=== PATIENT | female | born 1935 | race Caucasian/White ===

== ENCOUNTER 2024-07-26 10:23 | Inpatient (IN) | payer OTHER ==
[~2024-07-26] VITALS: Ht 167.6 cm; Wt 64.3 kg
[~2024-07-26 10:23] MED LIST: AMLO1TAB22 PO; ASPI-325 PO; CARV12.544 PO; CLOP75TA28 PO; LEVO100T8 PO; LOVA40TA72 PO; OSEL75CA5 PO; ROPI1TAB78 PO
[2024-07-26 10:50] VITALS: PULSE 82; RESP 17; O2SAT 95
--- NOTE | 2024-07-26 11:01 | ED.PDOC ---
History of Present Illness HPI Comments 89-year-old female BIBA prior medical history of CVA, high lipids, thyroid, hypertension; surgical history of partial colonoscopy and reversal" with so being diagnosed with pneumonia on 05/16/2020 in the chief complaint of shortness a breath. EMS report that the patient had a shortness a breath which has been worsening since last night and with the saturation of 90% room air and was given 4 L which brought the O2 up to 96%. Denies chills, fever, N/V/D, CP. No other associated symptoms, modifiers, recent injuries or sick contacts present at this time. Chief Complaint: Shortness of Breath Time Seen by MD: 10:35 Reviewed Notes: Nurses Notes, Medications, Allergies Allergies: Coded Allergies: NO KNOWN ALLERGIES (Unverified , 05/16/24) Home Meds Active Scripts Oseltamivir Phosphate (Tamiflu) 75 Mg Cap, 1 CAP PO BID, #10 CAP Prov:NICHOLAS BAILEY MD 05/19/24 Aspirin (Aspirin Low Dose) 81 Mg Tab, 81 MG PO DAILY, #60 TAB Prov:NICHOLAS BAILEY MD 05/19/24 Reported Medications Lovastatin (Lovastatin) 40 Mg Tab, 1 TAB PO DAILY, #30 TAB 5 Refills 05/17/24 Ropinirole Hydrochloride (Ropinirole Hcl) 1 Mg Tab, 1 MG PO, TAB 05/17/24 Carvedilol (Carvedilol) 12.5 Mg Tab, 12.5 MG PO Q12HR for 30 Days, MG 05/17/24 Amlodipine Besylate (Amlodipine Besylate) 5 Mg Tab, 10 MG PO DAILY for 30 Days, MG 05/17/24 Levothyroxine Sodium (Levothyroxine Sodium) 100 Mcg Tab, 100 MCG PO QAM for 30 Days, MCG 05/17/24 Clopidogrel Bisulfate (Plavix) 75 Mg Tab, 1 TAB PO DAILY, #90 TAB 1 Refill 05/17/24 Information Source: Patient, Emergency Med Personnel Mode of Arrival: EMS Severity: Moderate Timing: Hours Duration: Since onset, Hours Prehospital treatment: None Past Medical History PAST MEDICAL HISTORY: CVA, High Lipids, HTN, Thyroid Surgical History: Denies all surgeries Surgical History (Other): Partial colonoscopy and "reversal" colonoscopy STONER OUT History: Denies all STONER OUT Hx Family History Family History: Reviewed,noncontributory to illness, Unknown Social History Smoker: Non-Smoker Alcohol: Denies ETOH Use Drugs: Denies Drug Use Lives In: Home Constitutional: denies: chills, diaphoresis, fatigue, fever, malaise, sweats, weakness, others EENTM: denies: blurred vision, double vision, ear bleeding, ear discharge, ear drainage, ear pain, ear ringing, eye pain, eye redness, hearing loss, mouth pain, mouth swelling, nasal discharge, nose bleeding, nose congestion, nose pain, photophobia, tearing, throat pain, throat swelling, voice changes, others Respiratory: reports: shortness of breath; denies: cough, hemoptysis, orthopnea, SOB at rest, SOB with excertion, stridor, wheezing, others Cardiovascular: denies: chest pain, dizzy spells, diaphoresis, Dyspnea on exertion, edema, irregular heart beat, left arm pain, lightheadedness, palpitations, PND, syncope, others Gastrointestinal: denies: abdomen distended, abdominal pain, blood streaked bowels, constipated, diarrhea, dysphagia, difficulty swallowing, hematemesis, melena, nausea, poor appetite, poor fluid intake, rectal bleeding, rectal pain, vomiting, others Genitourinary: denies: abnormal vagina bleeding, burning, dyspareunia, dysuria, flank pain, frequency, hematuria, incontinence, pain, , vagina discharge, urgency, others Neurological: denies: dizziness, fainting, headache, left sided numbness, left sided weakness, numbness, paresthesia, pre-existing deficit, right sided numbness, right sided weakness, seizure, speech problems, tingling, tremors, weakness, others Musculoskeletal: denies: back pain, gout, joint pain, joint swelling, muscle pain, muscle stiffness, neck pain, others Integumetry: denies: bruises, change in color, change in hair/nails, dryness, laceration, lesions, lumps, rash, wounds, others Allergic/Immunocompromised: denies: Difficulty Healing, Frequent Infections, Hives, Itching, others Hematologic/Lymphatic: denies: anemia, blood clots, easy bleeding, easy bruising, swollen glands, others Endocrine: denies: excessive hunger, excessive sweating, excessive thirst, excessive urination, flushing, intolerance to cold, intolerance to heat, unexplained weight gain, unexplained weight loss, others Psychiatric: denies: anxiety, bipolar disorder, depression, hopeless, panic disorder, schizophrenia, sleepless, suicidal, others All Other Systems: Reviewed and Negative Physical Exam General Appearance: Moderate Distress, Normal HEENT: Normal ENT Inspection, Pharynx Normal, TMs Normal Neck: Full Range of Motion, Non-Tender, Normal, Normal Inspection Respiratory: Chest Non-Tender, No Accessory Muscle Use, No Respiratory Distress, Other (Coarse breath sounds) Cardiovascular: No Edema, No JVD, No Murmur, No Gallop, Normal Peripheral Pulses, Regular Rate/Rhythm Breast Exam: Deferred Gastrointestinal: No Organomegaly, Non Tender, No Pulsatile Mass, Normal Bowel Sounds, Soft Genitalia: Deferred Pelvic: Deferred Rectal: Deferred Extremities: No calf tenderness, Normal capillary refill, Normal inspection, Normal range of motion, Non-tender, No pedal edema Musculoskeletal : Apperance: Normal Neurologic: Alert, 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 Was a procedure done?: No Differential Dx Considerations may include: Acute respiratory distress Electrolyte imbalance X-Ray, Labs, Meds, VS Vital Signs Date Time Temp Pulse Resp B/P (MAP) Pulse Ox O2 Delivery O2 Flow Rate FiO2 07/26/24 10:50 98.2 82 17 177/68 (104) 95 98.2 07/26/24 10:50 82 17 95 Room Air* 0 21 07/26/24 10:43 20 95 Nasal Cannula* 4 36 07/26/24 10:38 98.0 74 20 165/73 (103) 95 98.0 Lab Test 07/26/24 11:58 07/26/24 10:56 Range/Units Troponin I High Sensitivity 97 *H 78 *H </=34 ng/L White Blood Count 5.4 4.4-10.8 10^3/uL Red Blood Count 5.06 4.0-5.20 10^6/uL Hemoglobin 10.8 L 12.2-16.2 g/dL Hematocrit 35.0 L 36.0-46.0 % Mean Corpuscular Volume 69.1 L 80.0-100.0 fL Mean Corpuscular Hemoglobin 21.4 L 28.0-32.0 pg Mean Corpuscular Hemoglobin Concent 30.9 L 32.0-36.0 g/dL Red Cell Distribution Width 19.5 H 11.8-14.3 % Platelet Count 248 140-450 10^3/uL Mean Platelet Volume 7.9 6.9-10.8 fL Neutrophils (%) (Auto) 75.7 37.0-80.0 % Lymphocytes (%) (Auto) 16.6 10.0-50.0 % Monocytes (%) (Auto) 6.9 0.0-12.0 % Eosinophils (%) (Auto) 0.3 0.0-7.0 % Basophils (%) (Auto) 0.5 0.0-2.0 % Neutrophils # (Auto) 4.1 1.6-8.6 10 ^3/uL Lymphocytes # (Auto) 0.9 0.4-5.4 10 ^3/uL Monocytes # (Auto) 0.4 0-1.3 10 ^3/uL Eosinophils # (Auto) 0 0-0.8 10 ^3/uL Basophils # (Auto) 0 0-0.2 10 ^3/uL Nucleated Red Blood Cells 0.1 % Sodium Level 142 136-145 mmol/L Potassium Level 4.1 3.5-5.1 mmol/L Chloride Level 109 H 98-107 mmol/L Carbon Dioxide Level 22 20-31 mmol/L Anion Gap 11 5-15 Blood Urea Nitrogen 20 9-23 mg/dL Creatinine 0.85 0.550-1.02 mg/dL Glomerular Filtration Rate Calc 65 >90 mL/min BUN/Creatinine Ratio 23.5 H 10.0-20.0 Serum Glucose 107 H 74-106 mg/dL Calcium Level 9.6 8.7-10.4 mg/dL Current Medications Medications (Trade) Dose Ordered Sig/Shanna Route Start Time Stop Time Status Last Admin Ceftriaxone Sodium 50 ml @ 100 mls/hr ONCE ONCE IV 07/26/24 11:00 07/26/24 11:33 DC 07/26/24 11:[address] [address] Ph: [phone] DIAGNOSTIC IMAGING Diagnostic Imaging Report : [id number] Signed PATIENT: ALYSIA GARCIA ACCT: [id number] UNIT: [id number] : 1935 LOC: ER ROOM / BED: / AGE / SEX: 89 / F ADM STATUS: REG ER SERVICE 1051 ORDERING PHYSICIAN: ANTIONETTE MAN MD PROCEDURE(s): CXRP - CHEST PORTABLE REASON: sob ORDER NUMBER(s): [id number], ACCESSION NUMBER(s): [id number] XY CHEST PORTABLE, HISTORY: sob COMPARISON: XY CHEST XRAY 1 VIEW on DOS: 05/16/24 XY CHEST XRAY 1 VIEW on DOS: 05/16/24 TECHNICAL DATA: 1 view of the chest was obtained. FINDINGS: Lines and tubes: None Cardiomediastinal silhouette: normal Pulmonary vasculature: normal Lung expansion: normal Lung airspace: normal Lung interstitium: normal Pleura: normal Pneumothorax: no Bones: Unremarkable Other: no IMPRESSION: No acute intrathoracic abnormality. ATED BY: ARTEM MEJIA MD DICTATED DATE/TIME: 07/26/24 1126 SIGNED BY: ARTEM MEJIA MD SIGNED DATE/TIME: 07/26/24 112 CC: Patient alert. Complaining of having shortness a breath. Placed on oxygen. Answering questions. Cardiac marker elevated. Continue oxygen. Was given aspirin. Was given Lovenox. Reviewed her previous visit. Explained to the patient her diagnosis. Continue monitoring. Time of 1ST Reevaluation: 11:05 Reevaluation 1ST: Unchanged Patient Education/Counseling: Diagnosis, Treatment, Prognosis Family Education/Counseling: No Family Present Departure 1 Departure Time of Disposition: 12:42 Impression: Primary Impression: Acute respiratory distress Additional Impression: Elevated troponin Disposition: ADMITTED INPATIENT Admit to: Med Surg Condition: Guarded Critical Care Note Critical Care Time?: No Stability Stability form required: No Heart Score Heart Score: Heart Score Response (Comments) Value History Slightly Suspicious 0 EKG Normal 0 Age >65 2 Risk Factors >3 or Hx ASHD 2 Troponin >3 x's Normal limit 2 Total 6 I personally scribed for ANTIONETTE MAN MD ([email or web address]) on 07/26/24 at 11:01. Electronically submitted by Gabriele Galvan ([email or web address]). I personally scribed for ANTIONETTE MAN MD ([email or web address]) on 07/26/24 at 11:51. Electronically submitted by Gabriele Galvan ([email or web address]). ANTIONETTE MAN MD July 26, 2024 11:01
[2024-07-26] MEDS: cefTRIAXone 1GM/50ML D5W 50 ML IV ONE (11:06)
[2024-07-26 11:08] LABS: Basophils # (auto) 0 10 ^3/uL (0-0.2); Basophils % (auto) 0.5 % (0.0-2.0); Eosinophils # (auto) 0 10 ^3/uL (0-0.8); Eosinophils % (auto) 0.3 % (0.0-7.0); Hemoglobin 10.8 g/dL (12.2-16.2); Lymphocytes # (auto) 0.9 10 ^3/uL (0.4-5.4); Lymphocytes % (auto) 16.6 % (10.0-50.0); Mean Corpuscular Hemoglobin 21.4 pg (28.0-32.0); Mean Corpuscular Hgb Conc. 30.9 g/dL (32.0-36.0); Mean Corpuscular Volume 69.1 fL (80.0-100.0); Monocytes # (auto) 0.4 10 ^3/uL (0-1.3); Monocytes % (auto) 6.9 % (0.0-12.0); Neutrophils # (auto) 4.1 10 ^3/uL (1.6-8.6); Neutrophils % (auto) 75.7 % (37.0-80.0); Nucleated Red Blood Cells % 0.1 %; Platelet Count (auto) 248 10^3/uL (140-450); Red Blood Cells 5.06 10^6/uL (4.0-5.20); Red Cell Distribution Width 19.5 % (11.8-14.3); White Blood Cell 5.4 10^3/uL (4.4-10.8)
[2024-07-26 11:22] LABS: Potassium 4.1 mmol/L (3.5-5.1); Sodium 142 mmol/L (136-145)
[2024-07-26 11:23] LABS: Anion Gap 11 (5-15); Calcium 9.6 mg/dL (8.7-10.4); Carbon Dioxide 22 mmol/L (20-31)
[2024-07-26 11:28] LABS: BUN/Creatinine Ratio 23.5 (10.0-20.0); Blood Urea Nitrogen 20 mg/dL (9-23); Chloride 109 mmol/L (98-107); Glucose 107 mg/dL (74-106)
--- NOTE | 2024-07-26 11:28 | DVH ---
XY CHEST PORTABLE, HISTORY: sob COMPARISON: XY CHEST XRAY 1 VIEW on DOS: 05/16/24 XY CHEST XRAY 1 VIEW on DOS: 05/16/24 TECHNICAL DATA: 1 view of the chest was obtained. FINDINGS: Lines and tubes: None Cardiomediastinal silhouette: normal Pulmonary vasculature: normal Lung expansion: normal Lung airspace: normal Lung interstitium: normal Pleura: normal Pneumothorax: no Bones: Unremarkable Other: no IMPRESSION: No acute intrathoracic abnormality.
[2024-07-26] MEDS: ENOXAPARIN SOD 60 MG/0.6 ML SYRINGE SC ONE (12:59)
--- NOTE | 2024-07-26 13:20 | ECG ---
[facility] Test Date: 2024-07-26 Test Time: 13:18:44 Pat Name: ALYSIA GARCIA Department: ED Room: 0233T Gender: F Manager Apple: TAHIR : 1935 Requested By: ANTIONETTE MAN Order Number: [id number] Reading MD: Valeriano Meade Measurements Intervals [place] Rate: 65 P: 23 OH: 215 QRS: -10 QRSD: 94 T: -57 QT: 512 QTc: 533 Interpretive Statements Sinus rhythm Borderline prolonged OH interval Abnormal R-wave progression, early transition Nonspecific T abnormalities, diffuse leads Prolonged QT interval Electronically Signed On 07-28-2024 12:08:18 PDT by Valeriano Meade Please click the below link to view image of tracing.
[2024-07-26 14:48] LABS: Urine Bacteria None Seen /hpf (None Seen)
[2024-07-26 15:01] LABS: Urine Blood Negative /uL (Negative); Urine Clarity Clear (Clear); Urine Color Light-Yellow (Yellow); Urine Mucus FEW (None Seen); Urine Protein, UAD Negative (Negative); Urine Specific Gravity 1.017 (1.001-1.035); Urine Squamous Epithelial Cell FEW /hpf (<5); Urine Urobilinogen Normal (Negative); Urine WBC 1 /HPF (0-5); Urine pH 5.5 (5.0-9.0)
[2024-07-26] MEDS ORDERED: MORPHINE SULFATE INJ 2 MG/ml SYRG IV PRN ×2 (17:00)
[2024-07-26] MEDS ORDERED: ACETAMINOPHEN 325 MG TAB PO PRN (17:00)
[2024-07-26] MEDS ORDERED: NITROGLYCERIN 0.4 MG SL TAB SL PRN (17:00)
[2024-07-26] MEDS ORDERED: ONDANSETRON HCL 4 MG/2 ML VIAL IV PRN (17:00)
[2024-07-26] MEDS ORDERED: HYDROcodone-ACET 5/325MG TAB PO PRN (17:00)
[2024-07-26 18:36] VITALS: BP 155/64; PULSE 67; RESP 17; TEMP 97.6; O2SAT 97
[2024-07-26 18:37] VITALS: BP 155/64; PULSE 67; RESP 17; TEMP 97.6; O2SAT 97
[2024-07-26 20:00] VITALS: PULSE 65
[2024-07-26 21:00] VITALS: BP 125/58; PULSE 65; RESP 17; TEMP 98.5; O2SAT 96
[2024-07-27] VITALS (8 sets, daily range): BP systolic 123–149; BP diastolic 50–72; PULSE 66–101; RESP 15–18; TEMP 97.6–98.9; O2SAT 97–98
--- NOTE | 2024-07-27 01:17 | DVHHP2 ---
KIARA LAIRD MARKETING REPRESENTATIVE 07/27/24 0117: History of Present Illness Reason for Visit: Shortness of breath History of Present Illness 89-year-old female medical history of hypertension, hypothyroidism presents who complains of shortness of breath x2 days. When EMS encounter the patient, the patient's oxygen saturation was 90% on room air. Patient does not use home oxygen. During the emergency department evaluation troponins Are positive trending up 78/97/104. At this time patient states breathing has improved. Denies fevers, chills, dizziness, palpitations, chest pain, nausea, vomiting Cardiovascular: HTN TRAUMA THERAPIST: CVA Smoke: No ALCOHOL: none Drugs: None Lives: with Family Review of Systems Constitutional: No: Fever, Chills, Sweats, Weakness, Malaise, Other Eyes: No: Pain, Vision change, Conjunctivae inflammation, Eyelid inflammation, Other, Redness ENT: No: Ear pain, Ear discharge, Nose pain, Nose discharge, Nose congestion, Mouth pain, Mouth swelling, Throat pain, Throat swelling, Other Respiratory: Shortness of breath; No: Cough, Dry, SOB with excertion, Wheezing, Hemoptysis, Pleuritic Pain, Sputum, Wheezing, Other Cardiovascular: No: Chest Pain, Palpitations, Orthopnea, Paroxysmal Noc. Dyspnea, Edema, Lt Headedness, Other Gastrointestinal: No: Nausea, Vomiting, Abdominal Pain, Diarrhea, Constipation, Melena, Hematochezia, Other Genitourinary: No Dysuria, No Frequency, No Incontinence, No Hematuria, No Retention, No Other Musculoskeletal: No: other, neck pain, shoulder pain, arm pain, back pain, hand pain, leg pain, foot pain Skin: No: Rash, Lesions, Jaundice, Bruising, Other Neurological: No: Weakness, Numbness, Incoordination, Change in speech, Confusion, Seizures, Other Allergies: Coded Allergies: NO KNOWN ALLERGIES (Unverified , 05/16/24) Medications Current Medications Medications Dose Ordered Sig/Shanna Route Start Time Stop Time Status Last Admin Dose Admin Acetaminophen/ Hydrocodone Bitart 1 tab Q4HP PRN PO 07/26/24 17:00 Ondansetron HCl 4 mg Q4HP PRN IV 07/26/24 17:00 Enoxaparin Sodium 40 mg DAILY SC 07/27/24 10:00 Acetaminophen 650 mg Q6HP PRN PO 07/26/24 17:00 Morphine Sulfate 2 mg Q4HPRN PRN IV 07/26/24 17:00 Nitroglycerin 0.4 mg Q5MINP PRN SL 07/26/24 17:00 Morphine Sulfate 2 mg Q30M PRN IV 07/26/24 17:00 Exam Vital Signs Vital Signs Date Time Temp Pulse Resp B/P (MAP) Pulse Ox O2 Delivery O2 Flow Rate FiO2 07/26/24 21:00 98.5 65 17 125/58 (80) 96 98.5 07/26/24 20:00 Nasal Cannula* 2 28 General Appearance: Alert, Oriented X3, Cooperative, mild distress HEENT: Atraumatic, PERRLA, EOMI Respiratory: Clear to auscultation, Normal air movement Cardiovascular: Regular rate, Normal S1, Normal S2 Abdominal: Normal bowel sounds, Soft Extremities: No clubbing, No cyanosis, No edema Skin: No rashes, No breakdown Neuro: Normal speech Psych/Mental Status: Mental status NL, Mood NL Labs/Xrays Labs Test 07/26/24 14:46 07/26/24 14:01 07/26/24 10:56 Range/Units Urine Color Light-yellow Yellow Urine Clarity Clear Clear Urine pH 5.5 5.0-9.0 Urine Specific [place] 1.017 1.001-1.035 Urine Protein Negative Negative Urine Ketones Negative Negative Urine Blood Negative Negative /uL Urine Nitrite Negative Negative Urine Bilirubin Negative Negative Urine Urobilinogen Normal Negative mg/dL Urine Leukocyte Esterase Negative Negative /uL Urine RBC 2 0 - 4 /hpf Urine Microscopic WBC 1 0-5 /HPF Urine Squamous Epithelial Cells Few <5 /hpf Urine Bacteria None seen None Seen /hpf Urine Mucus Few None Seen Urine Glucose Normal Normal mg/dL Troponin I High Sensitivity 104 *H </=34 ng/L White Blood Count 5.4 4.4-10.8 10^3/uL Red Blood Count 5.06 4.0-5.20 10^6/uL Hemoglobin 10.8 L 12.2-16.2 g/dL Hematocrit 35.0 L 36.0-46.0 % Mean Corpuscular Volume 69.1 L 80.0-100.0 fL Mean Corpuscular Hemoglobin 21.4 L 28.0-32.0 pg Mean Corpuscular Hemoglobin Concent 30.9 L 32.0-36.0 g/dL Red Cell Distribution Width 19.5 H 11.8-14.3 % Platelet Count 248 140-450 10^3/uL Mean Platelet Volume 7.9 6.9-10.8 fL Neutrophils (%) (Auto) 75.7 37.0-80.0 % Lymphocytes (%) (Auto) 16.6 10.0-50.0 % Monocytes (%) (Auto) 6.9 0.0-12.0 % Eosinophils (%) (Auto) 0.3 0.0-7.0 % Basophils (%) (Auto) 0.5 0.0-2.0 % Neutrophils # (Auto) 4.1 1.6-8.6 10 ^3/uL Lymphocytes # (Auto) 0.9 0.4-5.4 10 ^3/uL Monocytes # (Auto) 0.4 0-1.3 10 ^3/uL Eosinophils # (Auto) 0 0-0.8 10 ^3/uL Basophils # (Auto) 0 0-0.2 10 ^3/uL Nucleated Red Blood Cells 0.1 % Sodium Level 142 136-145 mmol/L Potassium Level 4.1 3.5-5.1 mmol/L Chloride Level 109 H 98-107 mmol/L Carbon Dioxide Level 22 20-31 mmol/L Anion Gap 11 5-15 Blood Urea Nitrogen 20 9-23 mg/dL Creatinine 0.85 0.550-1.02 mg/dL Glomerular Filtration Rate Calc 65 >90 mL/min BUN/Creatinine Ratio 23.5 H 10.0-20.0 Serum Glucose 107 H 74-106 mg/dL Calcium Level 9.6 8.7-10.4 mg/dL Assessment/Plan Assessment/Plan Elevated troponin Shortness of breath Plan Admit telemetry Cardiology consult. Echocardiogram. As needed hypertensive for optimal BP management. Serial troponin. Bronchodilators. As needed supplemental oxygen to maintain oxygen saturation greater than 93%. GI ppx pepcid / dvt ppx lovenox. Plan discussed with: Patient Date of Service: July 27, 2024 Billing Provider: NICHOLAS BAILEY MD Common Visit Codes: NOT BILLABLE NICHOLAS BAILEY MD 07/27/24 1713: Review of Systems Allergies: Coded Allergies: NO KNOWN ALLERGIES (Unverified , 05/16/24) Additional Comments Additional Comments Additional Comments 89-year-old female with known history of hypertension, previous history of CVA currently on Plavix, dyslipidemia, hypothyroidism initially presented to the hospital with increasing shortness of breath on exertion found to have 1. Elevated troponin suspect NSTEMI 2. Exertional shortness of breath rule out atherosclerotic coronary artery disease 3. Hypertension 4. Dyslipidemia 5. Hypothyroidism -trend troponins, cardiology consultation, possible nuclear stress test -physical therapy evaluation treatment -we will assess home oxygen requirement upon discharge. KIARA LAIRD NP July 27, 2024 01:17 NICHOLAS BAILEY MD July 27, 2024 17:13
[2024-07-27] MEDS: ENOXAPARIN SOD 40 MG/0.4 ML SYRINGE SC SCH (08:56)
[2024-07-27 10:20] LABS: Basophils # (auto) 0 10 ^3/uL (0-0.2); Eosinophils # (auto) 0 10 ^3/uL (0-0.8); Lymphocytes # (auto) 0.8 10 ^3/uL (0.4-5.4); Mean Corpuscular Volume 68.9 fL (80.0-100.0); Monocytes # (auto) 0.4 10 ^3/uL (0-1.3); Nucleated Red Blood Cells % 0.1 %; White Blood Cell 3.9 10^3/uL (4.4-10.8)
[2024-07-27 10:22] LABS: Basophils % (auto) 0.6 % (0.0-2.0); Hematocrit 32.9 % (36.0-46.0); Lymphocytes % (auto) 19.7 % (10.0-50.0); Mean Corpuscular Hemoglobin 20.9 pg (28.0-32.0); Mean Corpuscular Hgb Conc. 30.4 g/dL (32.0-36.0); Monocytes % (auto) 9.7 % (0.0-12.0); Neutrophils # (auto) 2.7 10 ^3/uL (1.6-8.6); Platelet Count (auto) 224 10^3/uL (140-450); Red Blood Cells 4.78 10^6/uL (4.0-5.20); Red Cell Distribution Width 19.5 % (11.8-14.3)
[2024-07-27 10:59] LABS: Alanine Aminotransferase 14 U/L (7-40); Albumin 3.8 g/dL (3.2-4.8); Alkaline Phosphatase 51 U/L (46-116); Anion Gap 10 (5-15); Aspartate Aminotransferase 26 U/L (13-40); BUN/Creatinine Ratio 25.3 (10.0-20.0); Blood Urea Nitrogen 20 mg/dL (9-23); Calcium 9.1 mg/dL (8.7-10.4); Carbon Dioxide 22 mmol/L (20-31); Potassium 4.4 mmol/L (3.5-5.1); Sodium 140 mmol/L (136-145); Total Protein 5.7 g/dL (5.7-8.2)
[2024-07-27 11:24] LABS: Bilirubin, Total 0.3 mg/dL (0.2-1.0); Chloride 108 mmol/L (98-107); Glucose 122 mg/dL (74-106)
--- NOTE | 2024-07-27 16:02 | DVHINCON2 ---
Date Seen: July 27, 2024 Referring Physician MD Jolly Reason for Consultation Mildly elevated troponin History of Present Illness This is a pleasant 89-year-old female who presented to the emergency room with a chief complaint of shortness of breath two days ago. The patient reports she a woke in the middle of the night gasping for air which prompted her to call 911. Upon EMS arrival she was found with an oxygen saturation level of 90% on room air for which she was administered a breathing treatment with relief of symptoms. The patient endorses exertional SOB when ambulating to the bathroom. Exertional angina, chest pain, palpitations, diaphoresis, dizziness, or syncopal events. She underwent a 12 lead electrocardiogram revealing a sinus rhythm with an associated first-degree atrioventricular block and T-wave inversion to anterior and inferior leads. These T-wave changes are new compared from those from a previous admission in May/2024. Troponin levels peaked at 104 ng/L. Significant medical history includes hypertension, dyslipidemia, hypothyroidism, and history of CVA. Past Medical History Past medical history reviewed. No other significant than mentioned above. Past Surgical History Colostomy reversal, 2022 Bilateral eyes Family History: Patient reports no known family medical history. Family History Family history reviewed. Social History Denies the use of illicit drugs, alcohol, or tobacco use. Allergies: Coded Allergies: NO KNOWN ALLERGIES (Unverified , 05/16/24) Home Meds Active Scripts Oseltamivir Phosphate (Tamiflu) 75 Mg Cap, 1 CAP PO BID, #10 CAP Prov:NICHOLAS BAILEY MD 05/19/24 Aspirin (Aspirin Low Dose) 81 Mg Tab, 81 MG PO DAILY, #60 TAB Prov:NICHOLAS BAILEY MD 05/19/24 Reported Medications Lovastatin (Lovastatin) 40 Mg Tab, 1 TAB PO DAILY, #30 TAB 5 Refills 05/17/24 Ropinirole Hydrochloride (Ropinirole Hcl) 1 Mg Tab, 1 MG PO, TAB 05/17/24 Carvedilol (Carvedilol) 12.5 Mg Tab, 12.5 MG PO Q12HR for 30 Days, MG 05/17/24 Amlodipine Besylate (Amlodipine Besylate) 5 Mg Tab, 10 MG PO DAILY for 30 Days, MG 05/17/24 Levothyroxine Sodium (Levothyroxine Sodium) 100 Mcg Tab, 100 MCG PO QAM for 30 Days, MCG 05/17/24 Clopidogrel Bisulfate (Plavix) 75 Mg Tab, 1 TAB PO DAILY, #90 TAB 1 Refill 05/17/24 Home Meds Home medications reviewed. Current Medications Current Medications Medications (Trade) Dose Ordered Sig/Shanna Route PRN Reason Start Time Stop Time Status Last Admin Acetaminophen/ Hydrocodone Bitart ([place] 5/325MG Tab) 1 tab Q4HP PRN PO MODERATE PAIN (4-6 PAIN SCALE) 07/26/24 17:00 Ondansetron HCl (Zofran) 4 mg Q4HP PRN IV NAUSEA / VOMITING 07/26/24 17:00 Enoxaparin Sodium (Lovenox) 40 mg DAILY SC 07/27/24 10:00 07/27/24 08:56 Acetaminophen (Tylenol Tablet) 650 mg Q6HP PRN PO PAIN SCALE 1-3 OR TEMP>100.4 07/26/24 17:00 Morphine Sulfate 2 mg Q4HPRN PRN IV SEVERE PAIN (7-10 PAIN SCALE) 07/26/24 17:00 Nitroglycerin (Ntrostat Sublingual) 0.4 mg Q5MINP PRN SL FOR CHEST PAIN 07/26/24 17:00 Morphine Sulfate 2 mg Q30M PRN IV FOR CHEST PAIN 07/26/24 17:00 Levothyroxine Sodium (Synthroid Tablet) 100 mcg QAM PO 07/28/24 07:00 UNV Review of Systems Constitutional: No symptom reported Ears, Nose, & Throat: No symptom reported Eyes: No symptom reported Neurological: No symptoms reported Pulmonary/Respiratory: SOB Cardiovascular: No symptom reported Gastrointestinal: No symptom reported Genitourinary: No symptom reported Musculoskeletal: No symptom reported Skin: No symptom reported Psychiatric: No symptom reported Endocrine: No symptom reported Hemotologic/Lymphatic: No symptom reported Vital Signs Vital Signs Date Time Temp Pulse Resp B/P (MAP) Pulse Ox O2 Delivery O2 Flow Rate FiO2 07/27/24 12:21 98.8 69 15 135/64 (87) 98 98.8 07/27/24 07:45 Nasal Cannula* 2 28 Physical Exam General Appearance: Cooperative. Well developed. Well nourished. In no acute distress Head Exam: Normal inspection Neck Exam: Normal inspection. Non-tender. Normal alignment Pulmonary/Respiratory: Chest non-tender. Diminished bilateral breath sounds Cardiovascular/Chest: Regular rate and rhythm. S1, S2. Sinus rhythm with T- wave inversion to inferior and anterior leads. No murmurs. No JVD. Peripheral Pulses: 2+ Radial (R). 2+ Radial (L). 2+ Pedal (R). 2+ Pedal (L) Abdominal Exam: Normal bowel sounds. Soft. Nontender. No hepatospenomegaly. No masses Ankle Exam: Negative ankle edema Lower extremities: Negative lower extremity edema Neuro/Mental Status: A&O x4. Coherent Thoughts/Psych: Normal thought pattern. Appropriate mood and affect. Pleasant Appearance: In no acute distress Skin Exam: Normal inspection. Normal color. Warm. Dry Labs/Diagnostic Data Labs Test 07/27/24 09:57 07/26/24 14:46 Range/Units White Blood Count 3.9 #L 4.4-10.8 10^3/uL Red Blood Count 4.78 4.0-5.20 10^6/uL Hemoglobin 10.0 L 12.2-16.2 g/dL Hematocrit 32.9 L 36.0-46.0 % Mean Corpuscular Volume 68.9 L 80.0-100.0 fL Mean Corpuscular Hemoglobin 20.9 L 28.0-32.0 pg Mean Corpuscular Hemoglobin Concent 30.4 L 32.0-36.0 g/dL Red Cell Distribution Width 19.5 H 11.8-14.3 % Platelet Count 224 140-450 10^3/uL Mean Platelet Volume 8.3 6.9-10.8 fL Neutrophils (%) (Auto) 69.0 37.0-80.0 % Lymphocytes (%) (Auto) 19.7 10.0-50.0 % Monocytes (%) (Auto) 9.7 0.0-12.0 % Eosinophils (%) (Auto) 1.0 0.0-7.0 % Basophils (%) (Auto) 0.6 0.0-2.0 % Neutrophils # (Auto) 2.7 1.6-8.6 10 ^3/uL Lymphocytes # (Auto) 0.8 0.4-5.4 10 ^3/uL Monocytes # (Auto) 0.4 0-1.3 10 ^3/uL Eosinophils # (Auto) 0 0-0.8 10 ^3/uL Basophils # (Auto) 0 0-0.2 10 ^3/uL Nucleated Red Blood Cells 0.1 % Sodium Level 140 136-145 mmol/L Potassium Level 4.4 3.5-5.1 mmol/L Chloride Level 108 H 98-107 mmol/L Carbon Dioxide Level 22 20-31 mmol/L Anion Gap 10 5-15 Blood Urea Nitrogen 20 9-23 mg/dL Creatinine 0.79 0.550-1.02 mg/dL Glomerular Filtration Rate Calc 71 >90 mL/min BUN/Creatinine Ratio 25.3 H 10.0-20.0 Serum Glucose 122 H 74-106 mg/dL Calcium Level 9.1 8.7-10.4 mg/dL Total Bilirubin 0.3 0.2-1.0 mg/dL Aspartate Amino Transferase (AST) 26 13-40 U/L Alanine Aminotransferase (ALT) 14 7-40 U/L Alkaline Phosphatase 51 46-116 U/L Troponin I High Sensitivity 41 *H </=34 ng/L B-Type Natriuretic Peptide 1115.94 0-100 pg/mL Total Protein 5.7 5.7-8.2 g/dL Albumin 3.8 3.2-4.8 g/dL Urine Color Light-yellow Yellow Urine Clarity Clear Clear Urine pH 5.5 5.0-9.0 Urine Specific [place] 1.017 1.001-1.035 Urine Protein Negative Negative Urine Ketones Negative Negative Urine Blood Negative Negative /uL Urine Nitrite Negative Negative Urine Bilirubin Negative Negative Urine Urobilinogen Normal Negative mg/dL Urine Leukocyte Esterase Negative Negative /uL Urine RBC 2 0 - 4 /hpf Urine Microscopic WBC 1 0-5 /HPF Urine Squamous Epithelial Cells Few <5 /hpf Urine Bacteria None seen None Seen /hpf Urine Mucus Few None Seen Urine Glucose Normal Normal mg/dL Assessment NSTEMI, questionable type 1 Exertional SOB rule out coronary artery disease Acute hypoxic respiratory failure Aortic valve stenosis, moderate degree Hypertension Dyslipidemia Hypothyroidism HX of CVA Plan/Recommendation (Dr. Venegas) The patient presents with exertional SOB, new T-wave changes to inferior and anterior leads, and a heart score of six points placing her at a moderate risk for major cardiovascular events. We will continue further evaluation with a nuclear stress test to rule out coronary ischemia. Echocardiogram revealed EF 60% with moderate aortic valve stenosis and moderate mitral valve calcification. Initiate single antiplatelet therapy and lipid lowering agent. Monitor ECG changes and notify. DVT/VTE prophylaxis. Further orders per clinical course. Thank you for allowing us to participate in this patient's care. Please call if you have any questions or concerns. This medical document was created using an electronic medical record system with voice recognition software and computerized dictation system. Although this document has been carefully reviewed, there might still be some phonetic and typographical errors. Occasional wrong-word or ``sound-alike substitutions may have occurred due to the inherent limitations of voice recognition software. These areas are purely typographical due to imperfections of the software programs and do not reflect any compromise in the patient's medical care. Please read the chart carefully and recognize, using context, where these substitutions have occurred. Plan discussed with: Patient, Other [place]HA Physical activity limitations: NA Date of Service: July 27, 2024 Billing Provider: ANTWON CHRISTINE Cardiology Common Codes: [id number] INP/OBS CARE (High) ANTWON CHRISTINE July 27, 2024 16:02
[2024-07-27] MEDS: ASPirin 81 mg TAB PO ONE (16:37)
[2024-07-27] MEDS: ATORVASTATIN 20 MG TAB PO SCH (21:28)
[2024-07-28] VITALS (7 sets, daily range): BP systolic 137–151; BP diastolic 57–70; PULSE 70–85; RESP 17–20; TEMP 97.6–98.6; O2SAT 95–99
[2024-07-28 05:59] LABS: Basophils # (auto) 0 10 ^3/uL (0-0.2); Basophils % (auto) 0.6 % (0.0-2.0); Eosinophils # (auto) 0 10 ^3/uL (0-0.8); Eosinophils % (auto) 0.6 % (0.0-7.0); Hematocrit 33.1 % (36.0-46.0); Lymphocytes % (auto) 26.3 % (10.0-50.0); Mean Corpuscular Hgb Conc. 30.3 g/dL (32.0-36.0); Mean Corpuscular Volume 69.3 fL (80.0-100.0); Monocytes # (auto) 0.4 10 ^3/uL (0-1.3); Monocytes % (auto) 11.1 % (0.0-12.0); Neutrophils # (auto) 2.3 10 ^3/uL (1.6-8.6); Neutrophils % (auto) 61.4 % (37.0-80.0); Nucleated Red Blood Cells % 0.2 %; Platelet Count (auto) 228 10^3/uL (140-450); Red Blood Cells 4.78 10^6/uL (4.0-5.20); Red Cell Distribution Width 19.1 % (11.8-14.3); White Blood Cell 3.8 10^3/uL (4.4-10.8)
[2024-07-28 06:20] LABS: Alkaline Phosphatase 51 U/L (46-116); Anion Gap 10 (5-15); Blood Urea Nitrogen 16 mg/dL (9-23); Calcium 9.4 mg/dL (8.7-10.4); Carbon Dioxide 23 mmol/L (20-31); Glucose 89 mg/dL (74-106); Potassium 3.9 mmol/L (3.5-5.1); Sodium 141 mmol/L (136-145); Total Protein 6.2 g/dL (5.7-8.2)
[2024-07-28 06:21] LABS: Alanine Aminotransferase < 9 U/L (7-40); Aspartate Aminotransferase 13 U/L (13-40); Bilirubin, Total 0.4 mg/dL (0.2-1.0); Chloride 108 mmol/L (98-107)
[2024-07-28] MEDS: LEVOTHYROXINE SODIUM 100 MCG TAB PO SCH (06:40)
--- NOTE | 2024-07-28 08:27 | DVH ---
CHEST RADIOGRAPH Indication: SOB Technique: Single frontal view of the chest was obtained COMPARISON: XY CHEST PORTABLE on DOS: 07/26/24, XY CHEST XRAY 1 VIEW on DOS: 05/16/24 FINDINGS: Lines and Tubes: None Lungs: Increased interstitial prominence Pleura: Small left pleural effusion No pneumothorax. Cardiomediastinal contours: Unremarkable Bones: Unremarkable IMPRESSION: Pulmonary vascular congestion
[2024-07-28] MEDS: ASPirin 81 mg TAB PO SCH (10:15)
--- NOTE | 2024-07-28 10:51 | DVHPN2 ---
Consult Progress Note Date Seen: July 28, 2024 Subjective Review of Systems: CVS:Normal, RESPIRATORY:Normal, NEURO:Normal Other Systems: Denies any further cardiac symptoms Objective vital signs Vital Sign Date Time Temp Pulse Resp B/P (MAP) Pulse Ox O2 Delivery O2 Flow Rate FiO2 07/28/24 09:07 98.0 70 17 149/70 (96) 97 98.0 07/28/24 08:00 Nasal Cannula* 2 28 Total Intake and Output 07/27/24 07/27/24 07/28/24 15:00 23:00 07:00 Intake Total 430 ml 300 ml Balance 430 ml 300 ml medications Current Medications Medications Dose Ordered Sig/Shanna Route Start Time Stop Time Status Last Admin Dose Admin Acetaminophen/ Hydrocodone Bitart 1 tab Q4HP PRN PO 07/26/24 17:00 Ondansetron HCl 4 mg Q4HP PRN IV 07/26/24 17:00 Enoxaparin Sodium 40 mg DAILY SC 07/27/24 10:00 07/28/24 10:15 40 MG Acetaminophen 650 mg Q6HP PRN PO 07/26/24 17:00 Morphine Sulfate 2 mg Q4HPRN PRN IV 07/26/24 17:00 Nitroglycerin 0.4 mg Q5MINP PRN SL 07/26/24 17:00 Morphine Sulfate 2 mg Q30M PRN IV 07/26/24 17:00 Levothyroxine Sodium 100 mcg QAM PO 07/28/24 07:00 07/28/24 06:40 100 MCG Aspirin 81 mg DAILY PO 07/28/24 10:00 07/28/24 10:15 81 MG Atorvastatin Calcium 40 mg HS PO 07/27/24 22:00 07/27/24 21:28 40 MG Examination: LUNGS:Normal, CVS:Normal (Systolic murmur III/), NEURO:Normal laboratory and microbiology Laboratory Tests 07/28/24 05:22 Test 07/28/24 05:22 Range/Units Serum Glucose 89 74-106 mg/dL Problem List/Assessment/Plan Problem List/Assessment/Plan NSTEMI, questionable type 1 Exertional SOB rule out coronary artery disease Acute hypoxic respiratory failure Aortic valve stenosis, moderate degree Pulmonary vascular congestion Hypertension Dyslipidemia Hypothyroidism HX of CVA Plan/Recommendation (Dr. Venegas) The patient presents with exertional SOB, new T-wave changes to inferior and anterior leads, and a heart score of six points placing her at a moderate risk for major cardiovascular events. We will continue further evaluation with a nuclear stress test to rule out coronary ischemia. Echocardiogram revealed EF 60% with moderate aortic valve stenosis and moderate mitral valve calcification. Continue single-antiplatelet therapy and lipid lowering agent. Initiate preload reduction. Monitor ECG changes and notify. DVT/VTE prophylaxis. Further orders per clinical course. Thank you for allowing us to participate in this patient's care. Please call if you have any questions or concerns. This medical document was created using an electronic medical record system with voice recognition software and computerized dictation system. Although this document has been carefully reviewed, there might still be some phonetic and typographical errors. Occasional wrong-word or ``sound-alike substitutions may have occurred due to the inherent limitations of voice recognition software. These areas are purely typographical due to imperfections of the software programs and do not reflect any compromise in the patient's medical care. Please read the chart carefully and recognize, using context, where these substitutions have occurred. Plan discussed with: Patient, Other Date of Service: July 28, 2024 Billing Provider: ANTWON CHRISTINE Cardiology Common Codes: [id number](High ANTWON CHRISTINE July 28, 2024 10:51
[2024-07-28] MEDS: FUROSEMIDE 20 MG/2 ML VIAL IV ONE (11:00)
[2024-07-28] MEDS: LOPERAMIDE 1 mg/7.5ml ORAL soln PO PRN (15:32)
--- NOTE | 2024-07-28 15:56 | DVHPN2 ---
Subjective Patient is complaining of diarrhea stool for C diff has been sent. Changes from previous H/P or p: No Changes Eyes: No Pain, No Vision change, No Conjunctivae inflammation, No Eyelid inflammation, No Other, No Redness ENT: No Ear pain, No Ear discharge, No Nose pain, No Nose discharge, No Nose congestion, No Mouth pain, No Mouth swelling, No Throat pain, No Throat swelling, No Other Cardiovascular: No Chest Pain, No Palpitations, No Orthopnea, No Paroxysmal Noc. Dyspnea, No Edema, No Lt Headedness, No Other Respiratory: No Cough, No Dry; Shortness of breath; No SOB with excertion, No Wheezing, No Hemoptysis, No Pleuritic Pain, No Sputum, No Other Gastrointestinal: No Nausea, No Vomiting, No Abdominal Pain, No Diarrhea, No Constipation, No Melena, No Hematochezia, No Other Genitourinary: No Dysuria, No Frequency, No Incontinence, No Hematuria, No Retention, No Other Musculoskeletal: No other, No neck pain, No shoulder pain, No arm pain, No back pain, No hand pain, No leg pain, No foot pain Skin: No Rash, No Lesions, No Jaundice, No Bruising, No Other Objective Vitals Vital Signs Date Time Temp Pulse Resp B/P (MAP) Pulse Ox O2 Delivery O2 Flow Rate FiO2 07/28/24 11:00 149/70 07/28/24 09:07 98.0 70 17 97 98.0 07/28/24 08:00 Nasal Cannula* 2 28 Intake/Output Intake and Output 07/28/24 07:00 Intake Total 730 ml Balance 730 ml Intake Oral 730 ml # Voids 6 # Bowel Movements 4 Exam HEENT pupils are reactive Neck is supple CV is S1-S2 regular rate and rhythm Respiratory diminished breath sounds bases GI positive bowel sound 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 Current Medications Medications Dose Ordered Sig/Shanna Route Start Time Stop Time Status Last Admin Dose Admin Acetaminophen/ Hydrocodone Bitart 1 tab Q4HP PRN PO 07/26/24 17:00 Ondansetron HCl 4 mg Q4HP PRN IV 07/26/24 17:00 Enoxaparin Sodium 40 mg DAILY SC 07/27/24 10:00 07/28/24 10:15 40 MG Acetaminophen 650 mg Q6HP PRN PO 07/26/24 17:00 Morphine Sulfate 2 mg Q4HPRN PRN IV 07/26/24 17:00 Nitroglycerin 0.4 mg Q5MINP PRN SL 07/26/24 17:00 Morphine Sulfate 2 mg Q30M PRN IV 07/26/24 17:00 Levothyroxine Sodium 100 mcg QAM PO 07/28/24 07:00 07/28/24 06:40 100 MCG Aspirin 81 mg DAILY PO 07/28/24 10:00 07/28/24 10:15 81 MG Atorvastatin Calcium 40 mg HS PO 07/27/24 22:00 07/27/24 21:28 40 MG Furosemide 20 mg DAILY IV 07/29/24 10:00 Loperamide HCl 2 mg PRN PRN PO 07/28/24 14:30 07/28/24 15:32 2 MG Laboratory Results Laboratory Tests 07/28/24 05:22 Chemistry Test 07/28/24 05:22 Albumin 4.0 g/dL (3.2-4.8) Calcium Level 9.4 mg/dL (8.7-10.4) Total Protein 6.2 g/dL (5.7-8.2) Coagulation Test 07/27/24 16:13 D-Dimer, Quantitative 0.94 mg/L FEU (0.0-0.49) H LFT Test 07/28/24 05:22 Alanine Aminotransferase (ALT) < 9 U/L (7-40) Alkaline Phosphatase 51 U/L (46-116) Aspartate Amino Transferase (AST) 13 U/L (13-40) Total Bilirubin 0.4 mg/dL (0.2-1.0) HgA1c, TSH Test 07/27/24 16:13 Thyroid Stimulating Hormone (TSH) 3.26 uIU/mL (0.55-4.78) Urinalysis Test 07/26/24 14:46 Urine Color Light-yellow (Yellow) Urine Clarity Clear (Clear) Urine pH 5.5 (5.0-9.0) Urine Specific [place] 1.017 (1.001-1.035) Urine Protein Negative (Negative) Urine Ketones Negative (Negative) Urine Blood Negative /uL (Negative) Urine Nitrite Negative (Negative) Urine Bilirubin Negative (Negative) Urine Urobilinogen Normal mg/dL (Negative) Urine Leukocyte Esterase Negative /uL (Negative) Urine RBC 2 /hpf (0 - 4) Urine Microscopic WBC 1 /HPF (0-5) Urine Squamous Epithelial Cells Few /hpf (<5) Urine Bacteria None seen /hpf (None Seen) Urine Mucus Few (None Seen) Urine Glucose Normal mg/dL (Normal) Microbiology Microbiology Date/Time Source Procedure Growth Status 07/27/24 19:40 Stool Clostridium difficile Toxin Assay - Final Complete Assessment/Plan Assessment/Plan 89-year-old female with known history of hypertension, previous history of CVA currently on Plavix, dyslipidemia, hypothyroidism initially presented to the hospital with increasing shortness of breath on exertion found to have 1. Elevated troponin suspect NSTEMI 2. Exertional shortness of breath rule out atherosclerotic coronary artery disease 3. Hypertension 4. Dyslipidemia 5. Hypothyroidism 6. Diarrhea rule out C diff -nuclear stress test per Cardiology, check stool for C diff Plan discussed with: Patient, Other My Orders Orders - NICHOLAS BAILEY MD Procedure Category Date Status Time Loperamide Oral PHA 07/28/24 In Process Solution (Imodium 14:30 Date of Service: July 28, 2024 Billing Provider: NICHOLAS BAILEY MD Common Visit Codes: NOT BILLABLE NICHOLAS BAILEY MD July 28, 2024 15:56
[2024-07-29] VITALS (8 sets, daily range): BP systolic 101–148; BP diastolic 60–78; PULSE 66–156; RESP 16–20; TEMP 97.3–98.2; O2SAT 97–98
[2024-07-29 06:19] LABS: Basophils # (auto) 0 10 ^3/uL (0-0.2); Basophils % (auto) 0.4 % (0.0-2.0); Eosinophils # (auto) 0 10 ^3/uL (0-0.8); Eosinophils % (auto) 0.5 % (0.0-7.0); Neutrophils # (auto) 2.2 10 ^3/uL (1.6-8.6); White Blood Cell 3.4 10^3/uL (4.4-10.8)
[2024-07-29 06:22] LABS: Hematocrit 31.9 % (36.0-46.0); Lymphocytes # (auto) 0.8 10 ^3/uL (0.4-5.4); Lymphocytes % (auto) 24.7 % (10.0-50.0); Mean Corpuscular Hemoglobin 21.6 pg (28.0-32.0); Mean Corpuscular Hgb Conc. 31.4 g/dL (32.0-36.0); Mean Corpuscular Volume 68.8 fL (80.0-100.0); Monocytes # (auto) 0.4 10 ^3/uL (0-1.3); Monocytes % (auto) 10.5 % (0.0-12.0); Neutrophils % (auto) 63.9 % (37.0-80.0); Nucleated Red Blood Cells % 0.1 %; Platelet Count (auto) 212 10^3/uL (140-450); Red Blood Cells 4.64 10^6/uL (4.0-5.20)
[2024-07-29 06:42] LABS: Alanine Aminotransferase < 9 U/L (7-40); Albumin 4.1 g/dL (3.2-4.8); Alkaline Phosphatase 51 U/L (46-116); Anion Gap 10 (5-15); Aspartate Aminotransferase 15 U/L (13-40); Bilirubin, Total 0.4 mg/dL (0.2-1.0); Blood Urea Nitrogen 17 mg/dL (9-23); Calcium 9.7 mg/dL (8.7-10.4); Carbon Dioxide 25 mmol/L (20-31); Chloride 108 mmol/L (98-107); Glucose 91 mg/dL (74-106); Potassium 4.3 mmol/L (3.5-5.1); Sodium 143 mmol/L (136-145); Total Protein 6.4 g/dL (5.7-8.2)
[2024-07-29] MEDS: REGADENOSON 0.4 MG/5 ML SYRG IV ONE ×2 (13:00→13:06)
[2024-07-29] MEDS: FUROSEMIDE 20 MG/2 ML VIAL IV SCH (14:22)
--- NOTE | 2024-07-29 15:16 | DVHPN2 ---
Subjective Patient is complaining of diarrhea stool for C diff has been negative, start Imodium. Changes from previous H/P or p: No Changes Eyes: No Pain, No Vision change, No Conjunctivae inflammation, No Eyelid inflammation, No Other, No Redness ENT: No Ear pain, No Ear discharge, No Nose pain, No Nose discharge, No Nose congestion, No Mouth pain, No Mouth swelling, No Throat pain, No Throat swelling, No Other Cardiovascular: No Chest Pain, No Palpitations, No Orthopnea, No Paroxysmal Noc. Dyspnea, No Edema, No Lt Headedness, No Other Respiratory: No Cough, No Dry; Shortness of breath; No SOB with excertion, No Wheezing, No Hemoptysis, No Pleuritic Pain, No Sputum, No Other Gastrointestinal: No Nausea, No Vomiting, No Abdominal Pain, No Diarrhea, No Constipation, No Melena, No Hematochezia, No Other Genitourinary: No Dysuria, No Frequency, No Incontinence, No Hematuria, No Retention, No Other Musculoskeletal: No other, No neck pain, No shoulder pain, No arm pain, No back pain, No hand pain, No leg pain, No foot pain Skin: No Rash, No Lesions, No Jaundice, No Bruising, No Other Objective Vitals Vital Signs Date Time Temp Pulse Resp B/P (MAP) Pulse Ox O2 Delivery O2 Flow Rate FiO2 07/29/24 14:22 148/70 07/29/24 13:48 156 07/29/24 08:30 98.0 16 97 98.0 07/29/24 08:00 Nasal Cannula* 2 28 Intake/Output Intake and Output 07/29/24 07:00 Intake Total 430 ml Balance 430 ml Intake Oral 430 ml # Voids 8 # Bowel Movements 6 Exam HEENT pupils are reactive Neck is supple CV is S1-S2 regular rate and rhythm Respiratory diminished breath sounds bases GI positive bowel sound 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 Medications Current Medications Medications Dose Ordered Sig/Shanna Route Start Time Stop Time Status Last Admin Dose Admin Acetaminophen/ Hydrocodone Bitart 1 tab Q4HP PRN PO 07/26/24 17:00 Ondansetron HCl 4 mg Q4HP PRN IV 07/26/24 17:00 Enoxaparin Sodium 40 mg DAILY SC 07/27/24 10:00 07/29/24 14:21 40 MG Acetaminophen 650 mg Q6HP PRN PO 07/26/24 17:00 Morphine Sulfate 2 mg Q4HPRN PRN IV 07/26/24 17:00 Nitroglycerin 0.4 mg Q5MINP PRN SL 07/26/24 17:00 Morphine Sulfate 2 mg Q30M PRN IV 07/26/24 17:00 Levothyroxine Sodium 100 mcg QAM PO 07/28/24 07:00 07/29/24 06:16 100 MCG Aspirin 81 mg DAILY PO 07/28/24 10:00 07/29/24 14:21 81 MG Atorvastatin Calcium 40 mg HS PO 07/27/24 22:00 07/28/24 21:10 40 MG Furosemide 20 mg DAILY IV 07/29/24 10:00 07/29/24 14:22 20 MG Loperamide HCl 2 mg PRN PRN PO 07/28/24 14:30 07/28/24 15:32 2 MG Laboratory Results Laboratory Tests 07/29/24 04:58 Chemistry Test 07/29/24 04:58 Albumin 4.1 g/dL (3.2-4.8) Calcium Level 9.7 mg/dL (8.7-10.4) Total Protein 6.4 g/dL (5.7-8.2) LFT Test 07/29/24 04:58 Alanine Aminotransferase (ALT) < 9 U/L (7-40) Alkaline Phosphatase 51 U/L (46-116) Aspartate Amino Transferase (AST) 15 U/L (13-40) Total Bilirubin 0.4 mg/dL (0.2-1.0) Urinalysis Test 07/26/24 14:46 Urine Color Light-yellow (Yellow) Urine Clarity Clear (Clear) Urine pH 5.5 (5.0-9.0) Urine Specific [place] 1.017 (1.001-1.035) Urine Protein Negative (Negative) Urine Ketones Negative (Negative) Urine Blood Negative /uL (Negative) Urine Nitrite Negative (Negative) Urine Bilirubin Negative (Negative) Urine Urobilinogen Normal mg/dL (Negative) Urine Leukocyte Esterase Negative /uL (Negative) Urine RBC 2 /hpf (0 - 4) Urine Microscopic WBC 1 /HPF (0-5) Urine Squamous Epithelial Cells Few /hpf (<5) Urine Bacteria None seen /hpf (None Seen) Urine Mucus Few (None Seen) Urine Glucose Normal mg/dL (Normal) Microbiology Microbiology Date/Time Source Procedure Growth Status 07/27/24 19:40 Stool Clostridium difficile Toxin Assay - Final Complete Assessment/Plan Assessment/Plan 89-year-old female with known history of hypertension, previous history of CVA currently on Plavix, dyslipidemia, hypothyroidism initially presented to the hospital with increasing shortness of breath on exertion found to have 1. Elevated troponin suspect NSTEMI 2. Exertional shortness of breath rule out atherosclerotic coronary artery disease 3. Hypertension 4. Dyslipidemia 5. Hypothyroidism 6. Diarrhea ruled out C diff -nuclear stress test per Cardiology, we will assess for home oxygen requirement upon discharge -C diff was negative, start Imodium. Plan discussed with: Patient Date of Service: July 29, 2024 Billing Provider: NICHOLAS BAILEY MD Common Visit Codes: NOT BILLABLE NICHOLAS BAILEY MD July 29, 2024 15:16
[2024-07-30 05:00] VITALS: BP 136/65; PULSE 71; RESP 18; TEMP 98.1; O2SAT 96
[2024-07-30 06:05] LABS: Basophils # (auto) 0 10 ^3/uL (0-0.2); Eosinophils # (auto) 0 10 ^3/uL (0-0.8); Hemoglobin 10.1 g/dL (12.2-16.2); Lymphocytes # (auto) 0.8 10 ^3/uL (0.4-5.4); Mean Corpuscular Hemoglobin 21.3 pg (28.0-32.0); Mean Corpuscular Hgb Conc. 30.6 g/dL (32.0-36.0); Monocytes # (auto) 0.3 10 ^3/uL (0-1.3); Nucleated Red Blood Cells % 0.3 %; Red Blood Cells 4.74 10^6/uL (4.0-5.20); White Blood Cell 3.1 10^3/uL (4.4-10.8)
[2024-07-30 06:09] LABS: Basophils % (auto) 0.5 % (0.0-2.0); Eosinophils % (auto) 0.5 % (0.0-7.0); Lymphocytes % (auto) 25.1 % (10.0-50.0); Mean Corpuscular Volume 69.5 fL (80.0-100.0); Monocytes % (auto) 10.1 % (0.0-12.0); Neutrophils % (auto) 63.8 % (37.0-80.0); Platelet Count (auto) 210 10^3/uL (140-450); Red Cell Distribution Width 19.1 % (11.8-14.3)
[2024-07-30 06:11] LABS: Alanine Aminotransferase 12 U/L (7-40); Albumin 4.2 g/dL (3.2-4.8); Alkaline Phosphatase 51 U/L (46-116); Anion Gap 10 (5-15); Aspartate Aminotransferase 17 U/L (13-40); BUN/Creatinine Ratio 20.4 (10.0-20.0); Blood Urea Nitrogen 19 mg/dL (9-23); Calcium 8.9 mg/dL (8.7-10.4); Carbon Dioxide 25 mmol/L (20-31); Chloride 106 mmol/L (98-107); Glucose 86 mg/dL (74-106); Potassium 4.1 mmol/L (3.5-5.1); Sodium 141 mmol/L (136-145); Total Protein 6.7 g/dL (5.7-8.2)
[2024-07-30 06:12] LABS: Bilirubin, Total 0.4 mg/dL (0.2-1.0)
[2024-07-30 08:00] VITALS: PULSE 73
[2024-07-30 09:00] VITALS: BP 162/60; PULSE 75; RESP 17; TEMP 98.2; O2SAT 97
[2024-07-30] MEDS: amLODIPine BESYLATE 5 MG TAB PO SCH (09:55)
[2024-07-30] MEDS: CARVEDILOL 12.5 MG TAB PO SCH (09:55)
--- NOTE | 2024-07-30 11:31 | DVHPN2 ---
Consult Progress Note Date Seen: July 30, 2024 Subjective Review of Systems: CVS:Normal, RESPIRATORY:Normal, NEURO:Normal Other Systems: Denies any cardiac symptoms Objective vital signs Vital Sign Date Time Temp Pulse Resp B/P (MAP) Pulse Ox O2 Delivery O2 Flow Rate FiO2 07/30/24 09:55 75 162/60 07/30/24 09:00 98.2 17 97 98.2 07/30/24 07:40 Nasal Cannula* 1 24 Total Intake and Output 07/29/24 07/29/24 07/30/24 15:00 23:00 07:00 Intake Total 240 ml 400 ml Balance 240 ml 400 ml medications Current Medications Medications Dose Ordered Sig/Shanna Route Start Time Stop Time Status Last Admin Dose Admin Acetaminophen/ Hydrocodone Bitart 1 tab Q4HP PRN PO 07/26/24 17:00 Ondansetron HCl 4 mg Q4HP PRN IV 07/26/24 17:00 Enoxaparin Sodium 40 mg DAILY SC 07/27/24 10:00 07/30/24 09:54 40 MG Acetaminophen 650 mg Q6HP PRN PO 07/26/24 17:00 Morphine Sulfate 2 mg Q4HPRN PRN IV 07/26/24 17:00 Nitroglycerin 0.4 mg Q5MINP PRN SL 07/26/24 17:00 Morphine Sulfate 2 mg Q30M PRN IV 07/26/24 17:00 Levothyroxine Sodium 100 mcg QAM PO 07/28/24 07:00 07/30/24 05:57 100 MCG Aspirin 81 mg DAILY PO 07/28/24 10:00 07/30/24 09:54 81 MG Atorvastatin Calcium 40 mg HS PO 07/27/24 22:00 07/29/24 21:19 40 MG Furosemide 20 mg DAILY IV 07/29/24 10:00 07/30/24 09:53 20 MG Loperamide HCl 2 mg PRN PRN PO 07/28/24 14:30 07/28/24 15:32 2 MG Amlodipine Besylate 5 mg DAILY PO 07/30/24 10:00 07/30/24 09:55 5 MG Carvedilol 12.5 mg Q12HR PO 07/30/24 10:00 07/30/24 09:55 12.5 MG Examination: LUNGS:Normal, CVS:Normal, NEURO:Normal laboratory and microbiology Laboratory Tests 07/30/24 05:09 Test 07/30/24 05:09 Range/Units Serum Glucose 86 74-106 mg/dL Problem List/Assessment/Plan Problem List/Assessment/Plan NSTEMI, questionable type 1 Exertional SOB rule out coronary artery disease Acute hypoxic respiratory failure Aortic valve stenosis, moderate degree Pulmonary vascular congestion Hypertension Dyslipidemia Hypothyroidism HX of CVA Plan/Recommendation (Dr. Meade) The patient presented with exertional SOB, new T-wave changes to inferior and anterior leads, and a heart score of six points placing her at a moderate risk for major cardiovascular events. Nuclear stress test completed with preliminary findings including a fixed infero-septal defect without reversible ischemia as per Dr. Meade. Echocardiogram revealed EF 60% with moderate aortic valve stenosis and moderate mitral valve calcification. There is no further cardiac work-up indicated at this time. Kindly call with any questions or concerns. Thank you for allowing us to participate in this patient's care. This medical document was created using an electronic medical record system with voice recognition software and computerized dictation system. Although this document has been carefully reviewed, there might still be some phonetic and typographical errors. Occasional wrong-word or ``sound-alike substitutions may have occurred due to the inherent limitations of voice recognition software. These areas are purely typographical due to imperfections of the software programs and do not reflect any compromise in the patient's medical care. Please read the chart carefully and recognize, using context, where these substitutions have occurred. Plan discussed with: Patient, Other Dietary Evaluation Review Comments: continue plan of care with 2GNA diet. Monitor PO intake to meet 75% of his needs Expected Outcomes/Goals: maintain Wt Date of Service: July 30, 2024 Billing Provider: ANTWON CHRISTINE Cardiology Common Codes: [id number] INP/OBS CARE(Mod) ANTWON CHRISTINE July 30, 2024 11:31
[2024-07-30 13:00] VITALS: BP 132/67; PULSE 72; RESP 16; TEMP 97.3; O2SAT 97
--- NOTE | 2024-07-30 14:44 | DVHDS2 ---
Discharge Summary Date of Admission July 26, 2024 at 16:54 Date of Discharge: July 30, 2024 Labs/Diagnostic Data: Laboratory Results Test 07/30/24 05:09 07/27/24 16:13 07/27/24 09:57 07/26/24 14:46 White Blood Count 3.1 10^3/uL (4.4-10.8) Red Blood Count 4.74 10^6/uL (4.0-5.20) Hemoglobin 10.1 g/dL (12.2-16.2) Hematocrit 33.0 % (36.0-46.0) Mean Corpuscular Volume 69.5 fL (80.0-100.0) Mean Corpuscular Hemoglobin 21.3 pg (28.0-32.0) Mean Corpuscular Hemoglobin Concent 30.6 g/dL (32.0-36.0) Red Cell Distribution Width 19.1 % (11.8-14.3) Platelet Count 210 10^3/uL (140-450) Mean Platelet Volume 8.5 fL (6.9-10.8) Neutrophils (%) (Auto) 63.8 % (37.0-80.0) Lymphocytes (%) (Auto) 25.1 % (10.0-50.0) Monocytes (%) (Auto) 10.1 % (0.0-12.0) Eosinophils (%) (Auto) 0.5 % (0.0-7.0) Basophils (%) (Auto) 0.5 % (0.0-2.0) Neutrophils # (Auto) 2.0 10 ^3/uL (1.6-8.6) Lymphocytes # (Auto) 0.8 10 ^3/uL (0.4-5.4) Monocytes # (Auto) 0.3 10 ^3/uL (0-1.3) Eosinophils # (Auto) 0 10 ^3/uL (0-0.8) Basophils # (Auto) 0 10 ^3/uL (0-0.2) Nucleated Red Blood Cells 0.3 % Sodium Level 141 mmol/L (136-145) Potassium Level 4.1 mmol/L (3.5-5.1) Chloride Level 106 mmol/L (98-107) Carbon Dioxide Level 25 mmol/L (20-31) Anion Gap 10 (5-15) Blood Urea Nitrogen 19 mg/dL (9-23) Creatinine 0.93 mg/dL (0.550-1.02) Glomerular Filtration Rate Calc 59 mL/min (>90) BUN/Creatinine Ratio 20.4 (10.0-20.0) Serum Glucose 86 mg/dL (74-106) Calcium Level 8.9 mg/dL (8.7-10.4) Total Bilirubin 0.4 mg/dL (0.2-1.0) Aspartate Amino Transferase (AST) 17 U/L (13-40) Alanine Aminotransferase (ALT) 12 U/L (7-40) Alkaline Phosphatase 51 U/L (46-116) Total Protein 6.7 g/dL (5.7-8.2) Albumin 4.2 g/dL (3.2-4.8) D-Dimer, Quantitative 0.94 mg/L FEU (0.0-0.49) Thyroid Stimulating Hormone (TSH) 3.26 uIU/mL (0.55-4.78) Troponin I High Sensitivity 41 ng/L (</=34) B-Type Natriuretic Peptide 1115.94 pg/mL (0-100) Urine Color Light-yellow (Yellow) Urine Clarity Clear (Clear) Urine pH 5.5 (5.0-9.0) Urine Specific Elsie 1.017 (1.001-1.035) Urine Protein Negative (Negative) Urine Ketones Negative (Negative) Urine Blood Negative /uL (Negative) Urine Nitrite Negative (Negative) Urine Bilirubin Negative (Negative) Urine Urobilinogen Normal mg/dL (Negative) Urine Leukocyte Esterase Negative /uL (Negative) Urine RBC 2 /hpf (0 - 4) Urine Microscopic WBC 1 /HPF (0-5) Urine Squamous Epithelial Cells Few /hpf (<5) Urine Bacteria None seen /hpf (None Seen) Urine Mucus Few (None Seen) Urine Glucose Normal mg/dL (Normal) Other Laboratory Tests 07/30/24 05:09 Brief Hx & Hospital Course: 89-year-old female with known history of hypertension, previous history of CVA currently on Plavix, dyslipidemia, hypothyroidism initially presented to the hospital with increasing shortness of breath on exertion found to have mildly elevated troponin diagnosed with a NSTEMI. Patient was seen by Cardiology underwent nuclear stress test. Which shows fixed inferoseptal infarct without any reversible ischemia. Patient was assess for home oxygen requirement which she does not qualify as she saturating 94% even on exertion on room air. Patient is being discharged under stable condition. Patient did have diarrhea C diff has been ruled out. Patient's diarrhea has been resolved after Imodium was given. Condition at Discharge: Stable Final Diagnosis/Problems List 89-year-old female with known history of hypertension, previous history of CVA currently on Plavix, dyslipidemia, hypothyroidism initially presented to the hospital with increasing shortness of breath on exertion found to have 1. Elevated troponin suspect NSTEMI 2. Exertional shortness of breath rule out atherosclerotic coronary artery disease 3. Hypertension 4. Dyslipidemia 5. Hypothyroidism 6. Diarrhea ruled out C diff Discharge Disposition: Home with Health Services SN[facility] Discharge Will this Physician continue t: No Discharge Instruct/Medications Diet: Cardiac 2g Na,low cholest Activity: See Comment Activity comment: As tolerated Follow Up/Referral: Follow up with the PCP in 1-2 weeks Medications: Resume home medications Discharge Statement: "Patient was advised to return to the ER or call 911 if any headaches, dizziness, shortness of breath, chest pain, abdominal pain, bleeding, fevers, or worsening of medical condition. Patient was counseled about treatment plan, medications, possible side effects, patientverbalized understanding. All questions were answered to the best of my ability. This discharge took greater then 30 minutes in planning, reviewing documentation, counseling the patient, and discussing with other team members." ASSESSMENT ASSESSMENT Assessment 89-year-old female with known history of hypertension, previous history of CVA currently on Plavix, dyslipidemia, hypothyroidism initially presented to the hospital with increasing shortness of breath on exertion found to have 1. Elevated troponin suspect NSTEMI 2. Exertional shortness of breath rule out atherosclerotic coronary artery disease 3. Hypertension 4. Dyslipidemia 5. Hypothyroidism 6. Diarrhea ruled out C diff Date of Service: July 30, 2024 Billing Provider: NICHOLAS BAILEY MD Common Visit Codes: NOT BILLABLE NICHOLAS BAILEY MD July 30, 2024 14:44
[2024-07-30 15:40] VITALS: BP 132/67; PULSE 72
--- NOTE | 2024-07-31 11:23 | DVHSR ---
APPROVED REPORT Exam: Nuclear Stress Test Indication: SOB r/o coronary ischemia BMI: 0 Medical History Medical History: Aortic vavle stenosis, , pulmonary vascular congestion, HTN , DLD, Hypothyroidism, C VA Stress Test Details Stress Test: Pharmacologic stress testing performed using 0.4 mg of regadenoson per 5 mL given IV ov er 10 seconds. HR Resting HR: 73 bpmMax Heart Rate (APMHR): 131.764701 bpm Max HR Achieved: 87 bpmTarget HR (85% APMHR): 111.988517 bpm % of APMHR: 66.41 Recovery HR: 79 bpm BP Resting BP: 160/54 mmHg Recovery BP: 158/60 mmHg ECG Resting ECG: Sinus Rhythm Clinical Reason for Termination: Completed protocol Stress ECG Conclusion apical infarct lvef 47% TWI on baseline ecg NM EXAM: Myocardial Perfusion REST/STRESS Imaging Protocol: Rest Tc-99m/Stress Tc-99m 1 day Resting Data Rest SPECT myocardial perfusion imaging was performed in supine position 60 minutes following the int ravenous injection of 11.8 mCi of Tc-99m Sestamibi. Time of rest injection: 10:00 Date: 07/29/2024 Time of rest imagin:00 Date: 07/29/2024 Administration Route: IV Administration Site: Right Arm Pharmacologic Stress Pharmacologic stress test was performed by injecting Regadenoson 0.4 mg IV push followed by the intra venous injection of 30.4 mCi of Tc-99m Sestamibi. Time of stress injection: 12:55 Date: 07/29/2024 Time of stress imagin:55 Date: 07/29/2024 Administration Route: IV Administration Site: Right Arm Gated Stress SPECT was performed 60 minutes after stress injection. The images were gated to evaluate regional wall motion and calculate left ventricular ejection fracti on. Stress only was performed in the Supine position. Nuclear Conclusion Nuclear Findings: negative for ischemia apical infarct lvef 47% TWI on baseline ecg
== END 2024-07-30 17:27 | disposition home or self-care (01) | DRG 280 ==
LOC: EDBD 10:23 → ER 10:23 → EDUNIT# 10:23 → OVERFLOW 16:54 → TELE-EAST 16:56
PROVIDERS: ADMIT Internal Medicine; ATTEND Internal Medicine
DX: I21.4 Non-ST elevation (NSTEMI) myocardial infarction (principal); J96.01 Acute respiratory failure with hypoxia; I10 Essential (primary) hypertension; I44.0 Atrioventricular block, first degree; E03.9 Hypothyroidism, unspecified; E78.5 Hyperlipidemia, unspecified; I35.0 Nonrheumatic aortic (valve) stenosis; I25.10 Atherosclerotic heart disease of native coronary artery without angina pectoris; Z86.73 Personal history of transient ischemic attack (TIA), and cerebral infarction without residual deficits; Z79.82 Long term (current) use of aspirin; Z79.899 Other long term (current) drug therapy; Z93.3 Colostomy status; Z99.81 Dependence on supplemental oxygen
CPT/HCPCS: 36415; 71045; 78452; 80048; 80053; 81001; 83880; 84443; 84484; 85025; 85379; 87493; 93005; 93017; 96360; 96372; 97110; 97116; 97162; 97530; G0378

== ENCOUNTER 2024-08-06 07:06 | Inpatient (IN) | payer OTHER ==
[~2024-08-06] VITALS: Ht 162.6 cm; Wt 63.0 kg
[~2024-08-06 07:06] MED LIST changes: -OSEL75CA5 PO
--- NOTE | 2024-08-06 07:17 | ECG ---
[facility] Test Date: 2024-08-06 Test Time: 07:12:23 Pat Name: ALYSIA GARCIA Department: ED Room: Gender: F Medical Collections: ROSAURA : 1935 Requested By: EMERGENCY EMERGENCY Order Number: [id number] Reading MD: Valeriano Meade Measurements Intervals Wayne Rate: 68 P: 12 CA: 194 QRS: -17 QRSD: 98 T: -43 QT: 485 QTc: 516 Interpretive Statements Sinus arrhythmia LVH with secondary repolarization abnormality Probable anterior infarct, age indeterminate Prolonged QT interval Electronically Signed On 08-06-2024 15:00:27 PDT by Valeriano Meade Please click the below link to view image of tracing.
--- NOTE | 2024-08-06 08:05 | ED.PDOC ---
SOB-HPI HPI Comments 89 y.o female presents to the ED for a chief complaint of SOB that started at 4am today. Patient reports waking up this morning gasping for air and is unable to take a deep breath. Patient was seen at this ED for similar complaint on 07/26/24, was admitted and seen by smog technician for a nuclear stress test but was discharged home after. Patient did not meet criteria for home oxygen as her SPO2 on room air read 94%. Patient denies any chest pain, fever, chills, nausea, vomiting. Chief Complaint: Shortness of Breath Time Seen by MD: 07:52 Primary Care Provider: UNKNOWN Reviewed notes: Nurses Notes, Bench Manager Notes, Medications, Allergies Information Source: Patient Mode of Arrival: EMS Severity: Moderate Timing: Hours Duration: Since onset Context: At Rest Modifying Factors: Nothing Associated Signs and Symptoms: None Past Medical History PAST MEDICAL HISTORY: CVA, High Lipids, HTN, Thyroid Surgical History: Denies all surgeries OCEAN EXPORT ACCOUNT MANAGER History: Denies all OCEAN EXPORT ACCOUNT MANAGER Hx Family History Family History: Reviewed,noncontributory to illness, Unknown Social History Smoker: Non-Smoker Alcohol: Denies ETOH Use Drugs: Denies Drug Use Lives In: Home Constitutional: denies: chills, diaphoresis, fatigue, fever, malaise, sweats, weakness, others EENTM: denies: blurred vision, double vision, ear bleeding, ear discharge, ear drainage, ear pain, ear ringing, eye pain, eye redness, hearing loss, mouth pain, mouth swelling, nasal discharge, nose bleeding, nose congestion, nose pain, photophobia, tearing, throat pain, throat swelling, voice changes, others Respiratory: reports: SOB at rest, shortness of breath, SOB with excertion; denies: cough, hemoptysis, orthopnea, stridor, wheezing, others Cardiovascular: denies: chest pain, dizzy spells, diaphoresis, Dyspnea on exertion, edema, irregular heart beat, left arm pain, lightheadedness, palpitations, PND, syncope, others Gastrointestinal: denies: abdomen distended, abdominal pain, blood streaked bowels, constipated, diarrhea, dysphagia, difficulty swallowing, hematemesis, melena, nausea, poor appetite, poor fluid intake, rectal bleeding, rectal pain, vomiting, others Genitourinary: denies: abnormal vagina bleeding, burning, dyspareunia, dysuria, flank pain, frequency, hematuria, incontinence, pain, , vagina discharge, urgency, others Neurological: denies: dizziness, fainting, headache, left sided numbness, left sided weakness, numbness, paresthesia, pre-existing deficit, right sided numbness, right sided weakness, seizure, speech problems, tingling, tremors, weakness, others Musculoskeletal: denies: back pain, gout, joint pain, joint swelling, muscle pain, muscle stiffness, neck pain, others Integumetry: denies: bruises, change in color, change in hair/nails, dryness, laceration, lesions, lumps, rash, wounds, others Allergic/Immunocompromised: denies: Difficulty Healing, Frequent Infections, Hives, Itching, others Hematologic/Lymphatic: denies: anemia, blood clots, easy bleeding, easy bruising, swollen glands, others Endocrine: denies: excessive hunger, excessive sweating, excessive thirst, excessive urination, flushing, intolerance to cold, intolerance to heat, unexplained weight gain, unexplained weight loss, others Psychiatric: denies: anxiety, bipolar disorder, depression, hopeless, panic disorder, schizophrenia, sleepless, suicidal, others All Other Systems: Reviewed and Negative Physical Exam General Appearance: Moderate Distress HEENT: Normal ENT Inspection, Pharynx Normal, TMs Normal Neck: Full Range of Motion, Non-Tender, Normal, Normal Inspection Respiratory: Other (Coarse breath sounds) Cardiovascular: No Edema, No JVD, No Murmur, No Gallop, Normal Peripheral Pulses, Regular Rate/Rhythm Breast Exam: Deferred Gastrointestinal: No Organomegaly, Non Tender, No Pulsatile Mass, Normal Bowel Sounds, Soft Genitalia: Deferred Pelvic: Deferred Rectal: Deferred Extremities: No calf tenderness, Pedal edema Musculoskeletal : Apperance: Normal Neurologic: Alert, senior statistical programmer II-XII nml as Tested, No Motor Deficits, Normal Affect, Normal Mood, No Sensory Deficits Cerebellar Function: NOT DONE Reflexes: NOT DONE Skin: Dry, Normal Color, Warm Peripheral Pulses: 3+ Radial (R), 3+ Radial (L) Lymphatic: No Adenopathy EKG EKG : Cardiac Rhythm: NSR Was a procedure done? Was a procedure done?: No Differential Dx Differential Diagnosis: Anxiety, Asthma, Bronchitis, CHF, COPD, Pneumonia, Respiratory Distress, URI X-Ray, Labs, Meds, VS Vital Signs Date Time Temp Pulse Resp B/P (MAP) Pulse Ox O2 Delivery O2 Flow Rate FiO2 08/06/24 09:42 65 16 146/57 (86) 96 08/06/24 07:20 96 Nasal Cannula* 2 28 08/06/24 07:15 98.5 80 20 170/65 (100) 96 98.5 08/06/24 07:12 68 Lab Test 08/06/24 08:18 Range/Units White Blood Count 5.5 4.4-10.8 10^3/uL Red Blood Count 5.01 4.0-5.20 10^6/uL Hemoglobin 10.6 L 12.2-16.2 g/dL Hematocrit 34.4 L 36.0-46.0 % Mean Corpuscular Volume 68.8 L 80.0-100.0 fL Mean Corpuscular Hemoglobin 21.1 L 28.0-32.0 pg Mean Corpuscular Hemoglobin Concent 30.7 L 32.0-36.0 g/dL Red Cell Distribution Width 18.9 H 11.8-14.3 % Platelet Count 227 140-450 10^3/uL Mean Platelet Volume 8.5 6.9-10.8 fL Neutrophils (%) (Auto) 78.9 37.0-80.0 % Lymphocytes (%) (Auto) 13.7 10.0-50.0 % Monocytes (%) (Auto) 6.9 0.0-12.0 % Eosinophils (%) (Auto) 0.1 0.0-7.0 % Basophils (%) (Auto) 0.4 0.0-2.0 % Neutrophils # (Auto) 4.4 1.6-8.6 10 ^3/uL Lymphocytes # (Auto) 0.8 0.4-5.4 10 ^3/uL Monocytes # (Auto) 0.4 0-1.3 10 ^3/uL Eosinophils # (Auto) 0 0-0.8 10 ^3/uL Basophils # (Auto) 0 0-0.2 10 ^3/uL Nucleated Red Blood Cells 0.1 % Sodium Level 143 136-145 mmol/L Potassium Level 4.2 3.5-5.1 mmol/L Chloride Level 110 H 98-107 mmol/L Carbon Dioxide Level 24 20-31 mmol/L Anion Gap 9 5-15 Blood Urea Nitrogen 21 9-23 mg/dL Creatinine 0.89 0.550-1.02 mg/dL Glomerular Filtration Rate Calc 62 >90 mL/min BUN/Creatinine Ratio 23.6 H 10.0-20.0 Serum Glucose 100 74-106 mg/dL Calcium Level 9.7 8.7-10.4 mg/dL Patient alert. Complaining of shortness a breath. Placed on oxygen. Blood pressure slightly elevated. Was recently discharged from this hospital. Reviewed her previous visit. WBC within normal limits. Has a anemia. Was given clonidine. Explained to the patient. Continue monitoring. EKG reviewed does not show any acute changes. Chest x-ray reviewed does show mild inflammation. CHEST RADIOGRAPH Indication: sob Technique: Single frontal view of the chest was obtained Comparison: XY CHEST PORTABLE on DOS: 07/28/24 FINDINGS: Lines and Tubes: None Lungs: Bibasilar airspace disease. Pleura: Bilateral pleural effusions. No pneumothorax. Cardiomediastinal contours: Unremarkable Bones: No acute osseous abnormality. IMPRESSION: 1. Bilateral pleural effusions. Bibasilar airspace disease which may represent atelectasis or consolidation. Time of 1ST Reevaluation: 08:01 Reevaluation 1ST: Unchanged Patient Education/Counseling: Diagnosis, Treatment, Prognosis Family Education/Counseling: No Family Present Departure 1 Departure Time of Disposition: 08:56 Impression: Primary Impression: Acute respiratory distress Additional Impression: Pneumonitis Disposition: ADMITTED INPATIENT Admit to: Med Surg Condition: Guarded Critical Care Note Critical Care Time?: No Stability Stability form required: No Heart Score Heart Score: Heart Score Response (Comments) Value History Slightly Suspicious 0 EKG Normal 0 Age >65 2 Risk Factors >3 or Hx ASHD 2 Troponin Normal limit 0 Total 4 I personally scribed for ANTIONETTE MAN MD ([email or web address]) on 08/06/24 at 08:05. El ectronically submitted by Kelly Umanzor ([facility]). I personally scribed for ANTIONETTE MAN MD ([email or web address]) on 08/06/24 at 09:44. Electronically submitted by Kelly Umanzor ([facility]). ANTIONETTE MAN MD Aug 06, 2024 08:05
[2024-08-06 08:37] LABS: Basophils # (auto) 0 10 ^3/uL (0-0.2); Basophils % (auto) 0.4 % (0.0-2.0); Eosinophils # (auto) 0 10 ^3/uL (0-0.8); Eosinophils % (auto) 0.1 % (0.0-7.0); Hematocrit 34.4 % (36.0-46.0); Hemoglobin 10.6 g/dL (12.2-16.2); Lymphocytes # (auto) 0.8 10 ^3/uL (0.4-5.4); Lymphocytes % (auto) 13.7 % (10.0-50.0); Mean Corpuscular Hemoglobin 21.1 pg (28.0-32.0); Mean Corpuscular Hgb Conc. 30.7 g/dL (32.0-36.0); Mean Corpuscular Volume 68.8 fL (80.0-100.0); Monocytes # (auto) 0.4 10 ^3/uL (0-1.3); Monocytes % (auto) 6.9 % (0.0-12.0); Neutrophils # (auto) 4.4 10 ^3/uL (1.6-8.6); Neutrophils % (auto) 78.9 % (37.0-80.0); Nucleated Red Blood Cells % 0.1 %; Platelet Count (auto) 227 10^3/uL (140-450); Red Blood Cells 5.01 10^6/uL (4.0-5.20); Red Cell Distribution Width 18.9 % (11.8-14.3); White Blood Cell 5.5 10^3/uL (4.4-10.8)
[2024-08-06 08:40] LABS: Anion Gap 9 (5-15); Carbon Dioxide 24 mmol/L (20-31); Potassium 4.2 mmol/L (3.5-5.1); Sodium 143 mmol/L (136-145)
[2024-08-06 08:41] LABS: Calcium 9.7 mg/dL (8.7-10.4)
--- NOTE | 2024-08-06 08:43 | DVH ---
CHEST RADIOGRAPH Indication: sob Technique: Single frontal view of the chest was obtained Comparison: XY CHEST PORTABLE on DOS: 07/28/24 FINDINGS: Lines and Tubes: None Lungs: Bibasilar airspace disease. Pleura: Bilateral pleural effusions. No pneumothorax. Cardiomediastinal contours: Unremarkable Bones: No acute osseous abnormality. IMPRESSION: 1. Bilateral pleural effusions. Bibasilar airspace disease which may represent atelectasis or consoli dation.
[2024-08-06 08:46] LABS: BUN/Creatinine Ratio 23.6 (10.0-20.0); Blood Urea Nitrogen 21 mg/dL (9-23); Chloride 110 mmol/L (98-107); Glucose 100 mg/dL (74-106)
[2024-08-06 09:53] LABS: Urine Bacteria None Seen /hpf (None Seen)
[2024-08-06 10:07] LABS: Urine Blood Negative /uL (Negative); Urine Clarity Clear (Clear); Urine Color Light-Yellow (Yellow); Urine Hyaline Cast FEW /lpf (0 - 2); Urine Mucus FEW (None Seen); Urine Protein, UAD 1+ (Negative); Urine Specific Gravity 1.018 (1.001-1.035); Urine Squamous Epithelial Cell FEW /hpf (<5); Urine Urobilinogen Normal (Negative); Urine WBC 1 /HPF (0-5); Urine pH 5.5 (5.0-9.0)
[2024-08-06 11:40] VITALS: PULSE 68; RESP 21; O2SAT 99
[2024-08-06] MEDS: methylPREDNISolone SOD SUCC 125 MG/2 ML VL IV ONE (12:16)
[2024-08-06] MEDS: cefTRIAXone 1GM/50ML D5W 50 ML IV ONE (12:16)
[2024-08-06] MEDS: AZITHROMYCIN 500MG/ 250ML 250 ML IV ONE (13:02)
[2024-08-06] MEDS ORDERED: MORPHINE SULFATE INJ 2 MG/ml SYRG IV PRN (15:15)
[2024-08-06] MEDS ORDERED: DOCUSATE SOD 100 MG CAP PO PRN (15:15)
[2024-08-06] MEDS ORDERED: HYDROcodone-ACET 5/325MG TAB PO PRN (15:15)
[2024-08-06] MEDS ORDERED: ACETAMINOPHEN 325 MG TAB PO PRN (15:15)
[2024-08-06] MEDS ORDERED: NITROGLYCERIN 0.4 MG SL TAB SL PRN (15:15)
[2024-08-06] MEDS ORDERED: ONDANSETRON HCL 4 MG/2 ML VIAL IV PRN (15:15)
[2024-08-06] MEDS ORDERED: MORPHINE SULFATE 4 MG/ML SYR/VIAL IV PRN (15:15)
[2024-08-06] MEDS: IOHEXOL 350 MG/ML 100ML IJ ONE (15:23)
--- NOTE | 2024-08-06 15:49 | DVHHP2 ---
History of Present Illness Reason for Visit: Woke up with shortness of breaths yesterday morning. History of Present Illness 89-year-old female with a known history of hypertension, hypothyroidism, history of CVA currently on Plavix, presented to the hospital with the sudden shortness of breath when she woke up yesterday morning. Patient denies any recent long travel, long drive, long flight. Patient denies any history of DVT or PE. In the ER patient's D-dimer is were high, CT angio has been ordered. Patient denies any chest pain but she stated that she woke up yesterday with gasping for air. Currently denies any fever cough or phlegm. Patient denies any recent sick contacts. Cardiovascular: CHF, HTN, hyperipidemia Heme/Onc: Anemia NOS Psych: Anxiety Endocrine: Hypothyroidism Past Surgical History: Other (Previous history of diverting colostomy in 2020, status post reversal of colostomy in 2022. ) Smoke: No ALCOHOL: none Drugs: None Review of Systems Review of Systems Twelve review of system are negative besides mentioned above. Allergies: Coded Allergies: NO KNOWN ALLERGIES (Unverified , 05/16/24) Exam Vital Signs Vital Signs Date Time Temp Pulse Resp B/P (MAP) Pulse Ox O2 Delivery O2 Flow Rate FiO2 08/06/24 12:01 71 08/06/24 12:00 17 162/52 (88) 96 08/06/24 11:40 Nasal Cannula* 2 28 08/06/24 11:35 98.2 98.2 Exam HEENT pupils are reactive Neck is supple CV is S1-S2 regular rate and rhythm Respiratory diminished breath sounds bases left more than right GI positive bowel sound Extremity no edema BEEF BREAKER no motor deficit Labs/Xrays Labs Test 08/06/24 14:03 08/06/24 09:32 08/06/24 08:18 Range/Units D-Dimer, Quantitative 1.29 H 0.0-0.49 mg/L FEU Urine Color Light-yellow Yellow Urine Clarity Clear Clear Urine pH 5.5 5.0-9.0 Urine Specific [place] 1.018 1.001-1.035 Urine Protein 1+ H Negative Urine Ketones Negative Negative Urine Blood Negative Negative /uL Urine Nitrite Negative Negative Urine Bilirubin Negative Negative Urine Urobilinogen Normal Negative mg/dL Urine Leukocyte Esterase Negative Negative /uL Urine RBC 1 0 - 4 /hpf Urine Microscopic WBC 1 0-5 /HPF Urine Squamous Epithelial Cells Few <5 /hpf Urine Bacteria None seen None Seen /hpf Urine Hyaline Casts Few 0 - 2 /lpf Urine Mucus Few None Seen Urine Glucose Normal Normal mg/dL White Blood Count 5.5 4.4-10.8 10^3/uL Red Blood Count 5.01 4.0-5.20 10^6/uL Hemoglobin 10.6 L 12.2-16.2 g/dL Hematocrit 34.4 L 36.0-46.0 % Mean Corpuscular Volume 68.8 L 80.0-100.0 fL Mean Corpuscular Hemoglobin 21.1 L 28.0-32.0 pg Mean Corpuscular Hemoglobin Concent 30.7 L 32.0-36.0 g/dL Red Cell Distribution Width 18.9 H 11.8-14.3 % Platelet Count 227 140-450 10^3/uL Mean Platelet Volume 8.5 6.9-10.8 fL Neutrophils (%) (Auto) 78.9 37.0-80.0 % Lymphocytes (%) (Auto) 13.7 10.0-50.0 % Monocytes (%) (Auto) 6.9 0.0-12.0 % Eosinophils (%) (Auto) 0.1 0.0-7.0 % Basophils (%) (Auto) 0.4 0.0-2.0 % Neutrophils # (Auto) 4.4 1.6-8.6 10 ^3/uL Lymphocytes # (Auto) 0.8 0.4-5.4 10 ^3/uL Monocytes # (Auto) 0.4 0-1.3 10 ^3/uL Eosinophils # (Auto) 0 0-0.8 10 ^3/uL Basophils # (Auto) 0 0-0.2 10 ^3/uL Nucleated Red Blood Cells 0.1 % Sodium Level 143 136-145 mmol/L Potassium Level 4.2 3.5-5.1 mmol/L Chloride Level 110 H 98-107 mmol/L Carbon Dioxide Level 24 20-31 mmol/L Anion Gap 9 5-15 Blood Urea Nitrogen 21 9-23 mg/dL Creatinine 0.89 0.550-1.02 mg/dL Glomerular Filtration Rate Calc 62 >90 mL/min BUN/Creatinine Ratio 23.6 H 10.0-20.0 Serum Glucose 100 74-106 mg/dL Calcium Level 9.7 8.7-10.4 mg/dL B-Type Natriuretic Peptide 1683.17 0-100 pg/mL Assessment/Plan Assessment/Plan 89-year-old female with a known history of hypertension, hypothyroidism, pr evious history of CVA currently no residual deficit, presented to the hospital with sudden shortness of breaths found to have 1. Shortness of breaths with the elevated D-dimer ruled out pulmonary embolism 2. Suspected pneumonia 3. Bilateral pleural effusion left more than right. 4. Acute CHF exacerbation probably diastolic dysfunction 5. Moderate aortic stenosis 6. Hypertension 7. Hypothyroidism 8. History of CVA currently no residual deficit -admit to telemetry, CT angio to rule out PE, risks of contrast induced nephropathy explained to the patient in detail, she understand verbalized understanding and agreeable to get CT angio to rule out PE. -Doppler venous to rule out DVT, IV antibiotics, we will repeat BNP in the morning of the CT angio to make sure there is no contrast induced nephropathy, then start IV Lasix -2D echo cardiology consultation and pulmonary consultation. Plan discussed with: Patient My Orders Orders - NICHOLAS BAILEY MD Procedure Category Date Status Time Ct Angio Chest CT 08/06/24 Taken Contrast 15:02 Admit ADMIT 08/06/24 Transmitted 15:02 Code Status CODE 08/06/24 Transmitted 15:02 Hydrocodone-Acet PHA 08/06/24 In Process 5/325mg Tab ([place] 15:15 Ondansetron Hcl PHA 08/06/24 In Process (Zofran) 15:15 Docusate Sodium PHA 08/06/24 In Process Capsule (Colace 15:15 Enoxaparin Sodium PHA 08/07/24 In Process (Lovenox) 10:00 Fall Risk Precautions JAYDEN 08/06/[address] 15:02 Complete Blood Count LAB 08/07/24 Verified 04:00 Comprehensive LAB 08/07/24 Verified Metabolic Panel 04:00 Condition: Fair JAYDEN 08/06/24 In Process 15:02 Acetaminophen Tablet PHA 08/06/24 In Process (Tylenol Tablet) 15:15 Nitroglycerin PHA 08/06/24 In Process Sublingual (Ntrostat 15:15 Morphine Sulfate PHA 08/06/24 In Process Injection 15:15 Stat Ekg For Chest JAYDEN 08/06/24 In Process Pain 15:02 Notify Of Changes JAYDEN 08/06/24 In Process From Base 15:02 Inpatient Care Manager Rn For JAYDEN 08/06/24 In Process 24 Hours 15:02 Emergency Dysrhythmia JAYDEN 08/06/24 In Process Protocol 15:02 Rhythm Strips Once JAYDEN 08/06/24 In Process Every Shift 15:02 Oxygen By Nasal RT 08/06/24 Transmitted Cannula 15:02 * Cardiology Consult CONS 08/06/24 Transmitted 15:02 *Consult CONS 08/06/24 Transmitted / 15:02 Ceftriaxone 1gm/50ml PHA 08/07/24 In Process D5w (Rocephin) 09:00 Azithromycin 500mg/ PHA 08/07/24 Pending 250ml (Zithromax 50 10:00 Bilat Lower Dvt US 08/06/24 Taken 15:02 Communication Order ORDERS 08/06/24 Transmitted 15:02 Amlodipine Tablet PHA 08/07/24 In Process (Norvasc Tablet) 10:00 Aspirin Enteric PHA 08/07/24 In Process Coated Tablet 10:00 Carvedilol Tablet PHA 08/06/24 In Process (Coreg Tablet) 22:00 Clopidogrel Bisulfate PHA 08/07/24 In Process (Plavix) 10:00 Levothyroxine Tablet PHA 08/07/24 In Process (Synthroid Tablet) 07:00 Atorvastatin (Lipitor) PHA 08/07/24 In Process 22:00 Morphine Sulfate PHA 08/06/24 In Process Injection 15:15 Problem List: (1) Acute respiratory distress (2) Pneumonitis Date of Service: Aug 06, 2024 Billing Provider: NICHOLAS BAILEY MD Common Visit Codes: NOT BILLABLE NICHOLAS BAILEY MD Aug 06, 2024 15:49
--- NOTE | 2024-08-06 15:51 | DVH ---
EXAM: US Duplex Bilateral Lower Extremities Veins CLINICAL INDICATION: Elevated D-dimer. TECHNIQUE: Real-time duplex ultrasound scan of the bilateral lower extremity veins integrating B-mod e two-dimensional vascular structure, Doppler spectral analysis, color flow Doppler imaging and compr ession. COMPARISON: None FINDINGS: RIGHT DEEP VEINS: Unremarkable. No DVT in the right common femoral, femoral, proximal deep femoral or popliteal veins. The veins demonstrate normal color flow, are normally compressible, with normal phasic flow and/or augmentation response. RIGHT SUPERFICIAL VEINS: Unremarkable. No thrombus in the visualized right great saphenous vein. LEFT DEEP VEINS: Unremarkable. No DVT in the left common femoral, femoral, proximal deep femoral o r popliteal veins. The veins demonstrate normal color flow, are normally compressible, with normal p hasic flow and/or augmentation response. LEFT SUPERFICIAL VEINS: Unremarkable. No thrombus in the visualized left great saphenous vein. SOFT TISSUES: No acute findings. No popliteal cyst. OTHER FINDINGS: . IMPRESSION: No DVT.
--- NOTE | 2024-08-06 16:25 | DVHINCON2 ---
Date Seen: Aug 06, 2024 Referring Physician MD Jolly Reason for Consultation Congestive heart failure History of Present Illness This is an 89-year-old female patient who presents to the emergency room with chief complaint of worsening shortness of breath since 4:00 a.m. on the day of emergency room arrival. Cardiology has now been consulted for CHF exacerbation. No initial twelve lead electrocardiogram in patient's hard chart or found in Cardio banking attorney. The patient denies any chest pain. No troponin levels available at time of assessment. Initial BNP level of 1683.17pg/mL. Significant past medical history includes hypertension, dyslipidemia, hypothyroidism, history of CVA (on Plavix and aspirin), and colitis. The patient denies following up with a cream dipper in the outpatient setting. The patient was recently seen at this facility and underwent a Cardiolite stress test on 07/29/2024 in which results were negative for ischemia. Past Medical History Past medical history reviewed. No other significant than mentioned above. Past Surgical History Partial colectomy with colostomy in 2020 Colostomy reversal in 2022 Appendectomy Tonsillectomy Family History: Patient reports no known family medical history. Family History Family history reviewed. Social History Patient has a five pack-year history, quit smoking approximately 35 years ago Denies any illicit drug use Denies any alcohol use Allergies: Coded Allergies: NO KNOWN ALLERGIES (Unverified , 05/16/24) Home Meds Active Scripts Aspirin (Aspirin Low Dose) 81 Mg Tab, 81 MG PO DAILY, #60 TAB Prov:NICHOLAS BAILEY MD 05/19/24 Reported Medications Lovastatin (Lovastatin) 40 Mg Tab, 1 TAB PO DAILY, #30 TAB 5 Refills 05/17/24 Ropinirole Hydrochloride (Ropinirole Hcl) 1 Mg Tab, 1 MG PO, TAB 05/17/24 Carvedilol (Carvedilol) 12.5 Mg Tab, 12.5 MG PO Q12HR for 30 Days, MG 05/17/24 Amlodipine Besylate (Amlodipine Besylate) 5 Mg Tab, 10 MG PO DAILY for 30 Days, MG 05/17/24 Levothyroxine Sodium (Levothyroxine Sodium) 100 Mcg Tab, 100 MCG PO QAM for 30 Days, MCG 05/17/24 Clopidogrel Bisulfate (Plavix) 75 Mg Tab, 1 TAB PO DAILY, #90 TAB 1 Refill 05/17/24 Home Meds Home medications reviewed. Current Medications Current Medications Medications (Trade) Dose Ordered Sig/Shanna Route PRN Reason Start Time Stop Time Status Last Admin Acetaminophen/ Hydrocodone Bitart ([place] 5/325MG Tab) 1 tab Q4HP PRN PO MODERATE PAIN (4-6 PAIN SCALE) 08/06/24 15:15 Ondansetron HCl (Zofran) 4 mg Q4HP PRN IV NAUSEA / VOMITING 08/06/24 15:15 Docusate Sodium (Colace Capsule) 100 mg BIDPRN PRN PO FOR CONSTIPATION 08/06/24 15:15 Enoxaparin Sodium (Lovenox) 40 mg DAILY SC 08/07/24 10:00 Acetaminophen (Tylenol Tablet) 650 mg Q6HP PRN PO PAIN SCALE 1-3 OR TEMP>100.4 08/06/24 15:15 Morphine Sulfate 2 mg Q4HPRN PRN IV SEVERE PAIN (7-10 PAIN SCALE) 08/06/24 15:15 Nitroglycerin (Ntrostat Sublingual) 0.4 mg Q5MINP PRN SL FOR CHEST PAIN 08/06/24 15:15 Morphine Sulfate 2 mg Q30M PRN IV FOR CHEST PAIN 08/06/24 15:15 Ceftriaxone Sodium 50 ml @ 100 mls/hr DAILY@09 IV 08/07/24 09:00 Azithromycin 250 ml @ 125 mls/hr DAILY IV 08/07/24 10:00 UNV Amlodipine Besylate (Norvasc Tablet) 10 mg DAILY PO 08/07/24 10:00 Aspirin (Ecotrin Enteric Coated Tablet) 81 mg DAILY PO 08/07/24 10:00 Carvedilol (Coreg Tablet) 12.5 mg Q12HR PO 08/06/24 22:00 Clopidogrel Bisulfate (Plavix) 75 mg DAILY PO 08/07/24 10:00 Levothyroxine Sodium (Synthroid Tablet) 100 mcg QAM PO 08/07/24 07:00 Atorvastatin Calcium (Lipitor) 20 mg HS PO 08/07/24 22:00 Review of Systems Constitutional: No symptom reported Ears, Nose, & Throat: No symptom reported Eyes: No symptom reported Neurological: No symptoms reported Pulmonary/Respiratory: Shortness of breath Cardiovascular: No symptom reported Gastrointestinal: No symptom reported Genitourinary: No symptom reported Musculoskeletal: No symptom reported Skin: No symptom reported Psychiatric: No symptom reported Endocrine: No symptom reported Hematologic/Lymphatic: No symptom reported Vital Signs Vital Signs Date Time Temp Pulse Resp B/P (MAP) Pulse Ox O2 Delivery O2 Flow Rate FiO2 08/06/24 14:00 79 22 123/56 (78) 97 08/06/24 11:40 Nasal Cannula* 2 28 08/06/24 11:35 98.2 98.2 Physical Exam General Appearance: Cooperative. Well-developed. Well-nourished. No acute distress. Pulmonary/Respiratory: Diminished throughout Cardiovascular/Chest: Regular rate and rhythm. Systolic murmur grade V/ Peripheral Pulses: 2+ Radial (R). 2+ Radial (L). 2+ Pedal (R). 2+ Pedal (L) Abdominal Exam: Normal bowel sounds. Ankle Exam: Negative ankle edema Lower extremities: Negative lower extremity edema Neuro/Mental Status: A/OX4, coherent. Thoughts/Psych: Normal thought pattern. Appropriate mood and affect. Good judgment and insight. Appearance: No acute distress. Skin Exam: Normal inspection. Normal color. Warm and dry. Labs/Diagnostic Data Labs Test 08/06/24 14:03 08/06/24 09:32 08/06/24 08:18 Range/Units D-Dimer, Quantitative 1.29 H 0.0-0.49 mg/L FEU Urine Color Light-yellow Yellow Urine Clarity Clear Clear Urine pH 5.5 5.0-9.0 Urine Specific [place] 1.018 1.001-1.035 Urine Protein 1+ H Negative Urine Ketones Negative Negative Urine Blood Negative Negative /uL Urine Nitrite Negative Negative Urine Bilirubin Negative Negative Urine Urobilinogen Normal Negative mg/dL Urine Leukocyte Esterase Negative Negative /uL Urine RBC 1 0 - 4 /hpf Urine Microscopic WBC 1 0-5 /HPF Urine Squamous Epithelial Cells Few <5 /hpf Urine Bacteria None seen None Seen /hpf Urine Hyaline Casts Few 0 - 2 /lpf Urine Mucus Few None Seen Urine Glucose Normal Normal mg/dL White Blood Count 5.5 4.4-10.8 10^3/uL Red Blood Count 5.01 4.0-5.20 10^6/uL Hemoglobin 10.6 L 12.2-16.2 g/dL Hematocrit 34.4 L 36.0-46.0 % Mean Corpuscular Volume 68.8 L 80.0-100.0 fL Mean Corpuscular Hemoglobin 21.1 L 28.0-32.0 pg Mean Corpuscular Hemoglobin Concent 30.7 L 32.0-36.0 g/dL Red Cell Distribution Width 18.9 H 11.8-14.3 % Platelet Count 227 140-450 10^3/uL Mean Platelet Volume 8.5 6.9-10.8 fL Neutrophils (%) (Auto) 78.9 37.0-80.0 % Lymphocytes (%) (Auto) 13.7 10.0-50.0 % Monocytes (%) (Auto) 6.9 0.0-12.0 % Eosinophils (%) (Auto) 0.1 0.0-7.0 % Basophils (%) (Auto) 0.4 0.0-2.0 % Neutrophils # (Auto) 4.4 1.6-8.6 10 ^3/uL Lymphocytes # (Auto) 0.8 0.4-5.4 10 ^3/uL Monocytes # (Auto) 0.4 0-1.3 10 ^3/uL Eosinophils # (Auto) 0 0-0.8 10 ^3/uL Basophils # (Auto) 0 0-0.2 10 ^3/uL Nucleated Red Blood Cells 0.1 % Sodium Level 143 136-145 mmol/L Potassium Level 4.2 3.5-5.1 mmol/L Chloride Level 110 H 98-107 mmol/L Carbon Dioxide Level 24 20-31 mmol/L Anion Gap 9 5-15 Blood Urea Nitrogen 21 9-23 mg/dL Creatinine 0.89 0.550-1.02 mg/dL Glomerular Filtration Rate Calc 62 >90 mL/min BUN/Creatinine Ratio 23.6 H 10.0-20.0 Serum Glucose 100 74-106 mg/dL Calcium Level 9.7 8.7-10.4 mg/dL B-Type Natriuretic Peptide 1683.17 0-100 pg/mL Assessment Acute on chronic HFpEF, NYHA class III Aortic valve stenosis, moderate degree (from echo on 05/16/2024) Mild to moderate mitral regurgitation Hypertension Dyslipidemia Acute hypoxic respiratory failure Rule out pulmonary embolism Hypothyroidism HX of CVA (on Plavix and ASA) Plan/Recommendation We will continue with the following plan/recommendations (Dr. Meade): * Transthoracic echocardiogram from 05/16/2024 reveals EF of 60% * Repeat transthoracic echocardiogram to re-evaluate aortic valve * Obtain baseline twelve lead electrocardiogram * GDMT for CHF as tolerated * Strict intake and output, daily weights, maintain fluid restriction * Diuresis as tolerated * Continue lipid-lowering agent * Blood pressure control * Close Cardiac surveillance Case discussed with . Thank you for allowing us to care for this patient. Please call with any questions or concerns. Critical care time spent: 43 minutes This medical document was created using an electronic medical record system with voice recognition software and computerized dictation system. Although this document has been carefully reviewed, there might still be some phonetic and typographical errors. Occasional wrong-word or ``sound-alike substitutions may have occurred due to the inherent limitations of voice recognition software. These areas are purely typographical due to imperfections of the software programs and do not reflect any compromise in the patient's medical care. Please read the chart carefully and recognize, using context, where these substitutions have occurred. Plan discussed with: Patient NYHA Physical activity limitations: Class3(Marked) ordinary (activity causes symtoms) Date of Service: Aug 06, 2024 Billing Provider: CHANTELLE LITTLE Cardiology Common Codes: 86400-[id number] INP/OBS CARE (High) Cardiology Consultation Codes: 52645-[id number] CONSULT <45MIN CHANTELLE LITTLE Aug 06, 2024 16:25
--- NOTE | 2024-08-06 16:58 | DVHINCON2 ---
Date of service: Aug 06, 2024 Referring Physician Nicholas Bailey MD Reason for Consultation Acute hypoxic respiratory failure, pulmonary hypertension and pleural effusions History of Present Illness An 89-year-old woman with past medical history that includes hypertension, hyperlipidemia, hypothyroidism, CHF, and hx of CVA, currently on Plavix, who presents to ED today with complaint of sudden-onset shortness of breath when she woke up yesterday morning. Patient denies any recent long travel, long drive or long flight. No history of DVT or PE. She denies any chest pain but reports she woke up yesterday gasping for air. Currently denies fever, cough or phlegm. No recent sick contacts. Workup in ED revealed D-dimers elevated, CT angio was ordered. Patient was admitted for further care, and pulmonary consultation is requested for evaluation and management of acute hypoxic respiratory failure, pulmonary hypertension and pleural effusions. Review of Systems: 14-point review of systems negative unless otherwise noted above. Past Medical History: Hypertension, hyperlipidemia, hypothyroidism, CHF, history of CVA, anemia, anxiety. Past Surgical History: Other (Previous history of diverting colostomy in 2020, status post reversal of colostomy in 2022). Medications: Reviewed. Allergies: No known drug allergies. Family History: No family history of premature CAD. No family history of lung disorders. Social History: Nonsmoker. No alcohol or illicit drug use. Family History: Patient reports no known family medical history. Allergies: Coded Allergies: NO KNOWN ALLERGIES (Unverified , 05/16/24) Home Meds Active Scripts Cefdinir (Cefdinir) 300 Mg Cap, 1 CAP PO BID for 5 Days, #10 CAP Prov:NICHOLAS BAILEY MD 08/09/24 Empagliflozin (Jardiance) 10 Mg Tab, 10 MG PO DAILY for 30 Days, #30 TAB Prov:NICHOLAS BAILEY MD 08/09/24 Potassium Chloride (Klor-Con M10) 10 Meq Tab, 1 TAB PO DAILY, #30 TAB 5 Refills Prov:NICHOLAS BAILEY MD 08/09/24 Furosemide (Lasix) 40 Mg Tab, 40 MG PO DAILY, #30 TAB Prov:NICHOLAS BAILEY MD 08/09/24 Aspirin (Aspirin Low Dose) 81 Mg Tab, 81 MG PO DAILY, #60 TAB Prov:NICHOLAS BAILEY MD 05/19/24 Reported Medications Lovastatin (Lovastatin) 40 Mg Tab, 1 TAB PO DAILY, #30 TAB 5 Refills 05/17/24 Ropinirole Hydrochloride (Ropinirole Hcl) 1 Mg Tab, 1 MG PO, TAB 05/17/24 Carvedilol (Carvedilol) 12.5 Mg Tab, 12.5 MG PO Q12HR for 30 Days, MG 05/17/24 Amlodipine Besylate (Amlodipine Besylate) 5 Mg Tab, 10 MG PO DAILY for 30 Days, MG 05/17/24 Levothyroxine Sodium (Levothyroxine Sodium) 100 Mcg Tab, 100 MCG PO QAM for 30 Days, MCG 05/17/24 Clopidogrel Bisulfate (Plavix) 75 Mg Tab, 1 TAB PO DAILY, #90 TAB 1 Refill 05/17/24 Current Medications Current Medications Medications (Trade) Dose Ordered Sig/Shanna Route PRN Reason Start Time Stop Time Status Last Admin Acetaminophen/ Hydrocodone Bitart ([place] 5/325MG Tab) 1 tab Q4HP PRN PO MODERATE PAIN (4-6 PAIN SCALE) 08/06/24 15:15 Ondansetron HCl (Zofran) 4 mg Q4HP PRN IV NAUSEA / VOMITING 08/06/24 15:15 Docusate Sodium (Colace Capsule) 100 mg BIDPRN PRN PO FOR CONSTIPATION 08/06/24 15:15 Enoxaparin Sodium (Lovenox) 40 mg DAILY SC 08/07/24 10:00 Acetaminophen (Tylenol Tablet) 650 mg Q6HP PRN PO PAIN SCALE 1-3 OR TEMP>100.4 08/06/24 15:15 Morphine Sulfate 2 mg Q4HPRN PRN IV SEVERE PAIN (7-10 PAIN SCALE) 08/06/24 15:15 Nitroglycerin (Ntrostat Sublingual) 0.4 mg Q5MINP PRN SL FOR CHEST PAIN 08/06/24 15:15 Morphine Sulfate 2 mg Q30M PRN IV FOR CHEST PAIN 08/06/24 15:15 Ceftriaxone Sodium 50 ml @ 100 mls/hr DAILY@09 IV 08/07/24 09:00 Azithromycin 250 ml @ 125 mls/hr DAILY IV 08/07/24 10:00 08/06/24 16:31 DC Amlodipine Besylate (Norvasc Tablet) 10 mg DAILY PO 08/07/24 10:00 Aspirin (Ecotrin Enteric Coated Tablet) 81 mg DAILY PO 08/07/24 10:00 Carvedilol (Coreg Tablet) 12.5 mg Q12HR PO 08/06/24 22:00 Clopidogrel Bisulfate (Plavix) 75 mg DAILY PO 08/07/24 10:00 Levothyroxine Sodium (Synthroid Tablet) 100 mcg QAM PO 08/07/24 07:00 Atorvastatin Calcium (Lipitor) 20 mg HS PO 08/07/24 22:00 Doxycycline Hyclate 100 ml @ 50 mls/hr Q12H IV 08/07/24 10:00 Vital Signs Vital Signs Date Time Temp Pulse Resp B/P (MAP) Pulse Ox O2 Delivery O2 Flow Rate FiO2 08/06/24 16:00 67 08/06/24 14:00 22 123/56 (78) 97 08/06/24 11:40 Nasal Cannula* 2 28 08/06/24 11:35 98.2 98.2 Physical Exam Gen.: Patient lying in bed in no apparent distress. On supplemental oxygen. Head: Normocephalic, atraumatic. Eyes: EOMI/PERRLA. Ears: Normal hearing. Normal anatomy. Neck/trachea: Trachea midline, supple. Nose: Normal external anatomy. Mouth: Moist mucous membranes. Chest: Decreased air entry bilaterally. No wheezing or rhonchi. Cardiovascular: Positive S1, positive S2. Regular rate and rhythm. Abdomen: Positive bowel sounds in all 4 quadrants. Soft, non-tender, non- distended. : Deferred. Rectal: Deferred. Skin: Warm, dry. Intact. Extremities: 2+ radial pulses bilaterally. No lower extremity edema. Neuro: Awake, alert, oriented x3. No gross motor or sensory deficits. Cranial nerves II through XII intact. Gait not assessed Labs/Diagnostic Data Labs Test 08/06/24 14:03 08/06/24 09:32 08/06/24 08:18 Range/Units D-Dimer, Quantitative 1.29 H 0.0-0.49 mg/L FEU Urine Color Light-yellow Yellow Urine Clarity Clear Clear Urine pH 5.5 5.0-9.0 Urine Specific [place] 1.018 1.001-1.035 Urine Protein 1+ H Negative Urine Ketones Negative Negative Urine Blood Negative Negative /uL Urine Nitrite Negative Negative Urine Bilirubin Negative Negative Urine Urobilinogen Normal Negative mg/dL Urine Leukocyte Esterase Negative Negative /uL Urine RBC 1 0 - 4 /hpf Urine Microscopic WBC 1 0-5 /HPF Urine Squamous Epithelial Cells Few <5 /hpf Urine Bacteria None seen None Seen /hpf Urine Hyaline Casts Few 0 - 2 /lpf Urine Mucus Few None Seen Urine Glucose Normal Normal mg/dL White Blood Count 5.5 4.4-10.8 10^3/uL Red Blood Count 5.01 4.0-5.20 10^6/uL Hemoglobin 10.6 L 12.2-16.2 g/dL Hematocrit 34.4 L 36.0-46.0 % Mean Corpuscular Volume 68.8 L 80.0-100.0 fL Mean Corpuscular Hemoglobin 21.1 L 28.0-32.0 pg Mean Corpuscular Hemoglobin Concent 30.7 L 32.0-36.0 g/dL Red Cell Distribution Width 18.9 H 11.8-14.3 % Platelet Count 227 140-450 10^3/uL Mean Platelet Volume 8.5 6.9-10.8 fL Neutrophils (%) (Auto) 78.9 37.0-80.0 % Lymphocytes (%) (Auto) 13.7 10.0-50.0 % Monocytes (%) (Auto) 6.9 0.0-12.0 % Eosinophils (%) (Auto) 0.1 0.0-7.0 % Basophils (%) (Auto) 0.4 0.0-2.0 % Neutrophils # (Auto) 4.4 1.6-8.6 10 ^3/uL Lymphocytes # (Auto) 0.8 0.4-5.4 10 ^3/uL Monocytes # (Auto) 0.4 0-1.3 10 ^3/uL Eosinophils # (Auto) 0 0-0.8 10 ^3/uL Basophils # (Auto) 0 0-0.2 10 ^3/uL Nucleated Red Blood Cells 0.1 % Sodium Level 143 136-145 mmol/L Potassium Level 4.2 3.5-5.1 mmol/L Chloride Level 110 H 98-107 mmol/L Carbon Dioxide Level 24 20-31 mmol/L Anion Gap 9 5-15 Blood Urea Nitrogen 21 9-23 mg/dL Creatinine 0.89 0.550-1.02 mg/dL Glomerular Filtration Rate Calc 62 >90 mL/min BUN/Creatinine Ratio 23.6 H 10.0-20.0 Serum Glucose 100 74-106 mg/dL Calcium Level 9.7 8.7-10.4 mg/dL B-Type Natriuretic Peptide 1683.17 0-100 pg/mL Assessment Impression: Acute hypoxic respiratory failure Pulmonary hypertension, WHO class II, right ventricular systolic pressure 40 mmHg Dyspnea Suspected pneumonitis Elevated D-dimer, ruled out deep vein thrombosis Bilateral pleural effusions, left more than right Atelectasis Acute CHF exacerbation, diastolic dysfunction Moderate aortic stenosis Hyperthyroidism Hypothyroidism Cerebrovascular accident, no residual deficit Anemia Plan: Echo report reviewed from May 22, 2024 Ejection fraction 60%. Mild moderate mitral regurgitation. Mild mitral regurgitation. Mild tricuspid regurgitation. Right ventricular systolic pressure 40 mmHg Ultrasound venous Doppler lower extremities revealed no acute DVT. Follow up CTA results. CTA ordered to rule out pulmonary embolism due to elevated D-dimer. Supplemental oxygen On 2 liters/minute via nasal cannula Keep O2 saturation above 92% Continue antibiotics Follow up cultures Steroids Bronchodilators Recommend diuresis Monitor electrolytes. Supplement as necessary. Monitor renal function Follow up Cardiology recommendations. DVT prophylaxis Prognosis: Poor given multiple comorbidities. Rest of plan per hospitalist and other consultants. Thank you Dr. Bailey for allowing me to participate in this patient's care. Further recommendations will depend on patient's clinical course. Please do not hesitate to contact me if you have any questions or concerns. This medical document was created using an electronic medical record system with Next audience dictation system. Although this document has been carefully reviewed, there may still be some phonetic and typographical errors. These areas are purely typographical due to imperfections of the software programs, and do not reflect any compromise in the patient's medical care. Plan discussed with: Patient, Other (Ayaan) [place] RIVERA MD Aug 06, 2024 16:58
[2024-08-06 17:53] VITALS: BP 161/62; PULSE 68; PULSE 74; RESP 18; TEMP 98.3; O2SAT 96; O2SAT 97
[2024-08-06 17:55] VITALS: BP 161/62; PULSE 74; RESP 18; TEMP 98.3; O2SAT 97
[2024-08-06 17:57] LABS: Magnesium 1.9 mg/dL (1.6-2.6)
[2024-08-06] MEDS: FUROSEMIDE 40 MG/4 ML VIAL IV SCH (18:24)
[2024-08-06 20:00] VITALS: PULSE 75; O2SAT 93
[2024-08-06] MEDS: CARVEDILOL 12.5 MG TAB PO SCH (20:53)
[2024-08-06 21:00] VITALS: BP 133/64; PULSE 72; RESP 18; TEMP 98.9; O2SAT 93
[2024-08-07] VITALS (8 sets, daily range): BP systolic 129–144; BP diastolic 52–67; PULSE 58–82; RESP 16–20; TEMP 97.4–98.8; O2SAT 95–98
[2024-08-07] MEDS: LEVOTHYROXINE SODIUM 100 MCG TAB PO SCH (06:38)
[2024-08-07 06:41] LABS: Basophils # (auto) 0 10 ^3/uL (0-0.2); Eosinophils # (auto) 0 10 ^3/uL (0-0.8); Lymphocytes # (auto) 0.6 10 ^3/uL (0.4-5.4); Mean Corpuscular Hemoglobin 21.2 pg (28.0-32.0); Monocytes % (auto) 5.2 % (0.0-12.0); Nucleated Red Blood Cells % 0.2 %; Red Blood Cells 4.71 10^6/uL (4.0-5.20)
[2024-08-07 06:47] LABS: Alanine Aminotransferase 15 U/L (7-40); Albumin 4.1 g/dL (3.2-4.8); Alkaline Phosphatase 63 U/L (46-116); Anion Gap 10 (5-15); Aspartate Aminotransferase 14 U/L (13-40); BUN/Creatinine Ratio 25.6 (10.0-20.0); Bilirubin, Total 0.3 mg/dL (0.2-1.0); Carbon Dioxide 23 mmol/L (20-31); Sodium 143 mmol/L (136-145); Total Protein 6.4 g/dL (5.7-8.2)
[2024-08-07 06:48] LABS: Basophils % (auto) 0.2 % (0.0-2.0); Hematocrit 32.2 % (36.0-46.0); Lymphocytes % (auto) 12.6 % (10.0-50.0); Mean Corpuscular Hgb Conc. 30.9 g/dL (32.0-36.0); Mean Corpuscular Volume 68.4 fL (80.0-100.0); Monocytes # (auto) 0.3 10 ^3/uL (0-1.3); Platelet Count (auto) 218 10^3/uL (140-450); White Blood Cell 4.9 10^3/uL (4.4-10.8)
[2024-08-07 06:54] LABS: Blood Urea Nitrogen 31 mg/dL (9-23); Calcium 8.6 mg/dL (8.7-10.4); Chloride 110 mmol/L (98-107); Glucose 133 mg/dL (74-106)
[2024-08-07] MEDS: cefTRIAXone 1GM/50ML D5W 50 ML IV SCH (09:47)
[2024-08-07] MEDS: amLODIPine BESYLATE 5 MG TAB PO SCH (09:48)
[2024-08-07] MEDS: ENOXAPARIN SOD 40 MG/0.4 ML SYRINGE SC SCH (09:48)
[2024-08-07] MEDS: ASPirin-EC 81 mg tab PO SCH (09:49)
[2024-08-07] MEDS: CLOPIDOGREL BISULFATE 75 MG TAB PO SCH (09:50)
[2024-08-07] MEDS: EMPAGLIFLOZIN 10 MG TAB PO SCH (09:50)
[2024-08-07] MEDS ORDERED: AZITHROMYCIN 500MG/ 250ML 250 ML IV SCH (10:00)
[2024-08-07] MEDS: DOXYCYCLINE 100MG/100ML 100 ML IV SCH (10:52)
--- NOTE | 2024-08-07 11:00 | DVHPN2 ---
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 No cardiac events reported overnight Objective vital signs Vital Sign Date Time Temp Pulse Resp B/P (MAP) Pulse Ox O2 Delivery O2 Flow Rate FiO2 08/07/24 09:49 85 145/69 08/07/24 09:00 97.5 17 96 97.5 08/06/24 20:00 Nasal Cannula* 2 28 Total Intake and Output 08/06/24 08/06/24 08/07/24 15:00 23:00 07:00 Intake Total 175 ml 125 ml 480 ml Balance 175 ml 125 ml 480 ml medications Current Medications Medications Dose Ordered Sig/Shanna Route Start Time Stop Time Status Last Admin Dose Admin Acetaminophen/ Hydrocodone Bitart 1 tab Q4HP PRN PO 08/06/24 15:15 Ondansetron HCl 4 mg Q4HP PRN IV 08/06/24 15:15 Docusate Sodium 100 mg BIDPRN PRN PO 08/06/24 15:15 Enoxaparin Sodium 40 mg DAILY SC 08/07/24 10:00 08/07/24 09:48 40 MG Acetaminophen 650 mg Q6HP PRN PO 08/06/24 15:15 Morphine Sulfate 2 mg Q4HPRN PRN IV 08/06/24 15:15 Nitroglycerin 0.4 mg Q5MINP PRN SL 08/06/24 15:15 Morphine Sulfate 2 mg Q30M PRN IV 08/06/24 15:15 Ceftriaxone Sodium 50 ml @ 100 mls/hr DAILY@09 IV 08/07/24 09:00 08/07/24 09:47 100 MLS/HR Amlodipine Besylate 10 mg DAILY PO 08/07/24 10:00 08/07/24 09:48 10 MG Aspirin 81 mg DAILY PO 08/07/24 10:00 08/07/24 09:49 81 MG Carvedilol 12.5 mg Q12HR PO 08/06/24 22:00 08/07/24 09:49 12.5 MG Clopidogrel Bisulfate 75 mg DAILY PO 08/07/24 10:00 08/07/24 09:50 75 MG Levothyroxine Sodium 100 mcg QAM PO 08/07/24 07:00 08/07/24 06:38 100 MCG Atorvastatin Calcium 20 mg HS PO 08/07/24 22:00 Doxycycline Hyclate 100 ml @ 50 mls/hr Q12H IV 08/07/24 10:00 08/07/24 10:52 50 MLS/HR Furosemide 40 mg BIDD IV 08/06/24 18:00 08/07/24 06:38 40 MG Empaglifozin 10 mg DAILY PO 08/07/24 10:00 08/07/24 09:50 10 MG Examination: GENERAL:Normal, LUNGS:Normal, CVS:Normal, NEURO:Normal laboratory and microbiology Laboratory Tests 08/07/24 05:28 Test 08/07/24 05:28 Range/Units Serum Glucose 133 H 74-106 mg/dL Problem List/Assessment/Plan Problem List/Assessment/Plan Acute on chronic HFmrEF, NYHA class III Severe aortic stenosis Severe aortic regurgitation Hypertension Dyslipidemia Acute hypoxic respiratory failure Ruled out pulmonary embolism Bilateral pleural effusions Hypothyroidism HX of CVA (on Plavix and ASA) Plan/Recommendations (Dr. Rosenthal): * Transthoracic echocardiogram reveals EF 40-45% with severe aortic regurgitation and severe aortic stenosis * GDMT for CHF as tolerated * Strict intake and output, daily weights, maintain fluid restriction * Diuresis as tolerated * Continue lipid-lowering agent * Blood pressure control * Close Cardiac surveillance Seen and examined at bedside with . reviewed echocardiogram findings the patient. Patient to follow up in the outpatient setting for possible aortic valve replacement. No further inpatient cardiac workup indicated at this time. Thank you for allowing us to care for this patient. Please call with any questions or concerns. This medical document was created using an electronic medical record system with voice recognition software and computerized dictation system. Although this document has been carefully reviewed, there might still be some phonetic and typographical errors. Occasional wrong-word or ``sound-alike substitutions may have occurred due to the inherent limitations of voice recognition software. These areas are purely typographical due to imperfections of the software programs and do not reflect any compromise in the patient's medical care. Please read the chart carefully and recognize, using context, where these substitutions have occurred. 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
--- NOTE | 2024-08-07 11:05 | DVH ---
EXAM: CT CT ANGIO CHEST CONTRAST HISTORY: Elevated D-dimer, rule out pulmonary embolism COMPARISON: Chest x-ray from earlier same day CT scan of the chest dated 05/16/2024. Radiation Dose: Chest: CTDI volume is 11.24 mGy. Dose-length product is 417.32 mGy*cm TECHNIQUE: Helical CT images of the chest were performed with 100 mL Isovue 370 IV contrast using [facility] CTA protocol. Sagittal and coronal reformatted images and 3D MIP images were obtained. This CT exam was performed using 1 or more of the following dose reduction techniques: Automated exposure co ntrol, adjustment of the mA and/or kv according to patient size, or the use of iterative reconstructi on techniques. FINDINGS: No pulmonary arterial filling defects are identified. There are small to moderate right and moderate left pleural effusions. There are patchy interstitial infiltrates and atelectasis in the b ilateral lower lobes. There is diffuse prominence of the interlobular septa. No pneumothorax. There a re calcified granulomas in the left lower lobe. No suspicious mediastinal or axillary adenopathy. The heart is enlarged. There are coronary artery calcifications. There is a small pericardial effusion. No thoracic aortic aneurysm or dissection. The central pulmonary arteries are ectatic. There are jacque ateral breast implants. There are calcified granulomas in the spleen. There are chronic appearing fra ctures T6, T8, and L2. IMPRESSION: 1. No evidence of pulmonary embolism. 2. Moderate to large left and small to moderate right pleural effusions. Infiltrates in the bilatera l lower lobes and lingula may be due to a combination of atelectasis and pneumonia. 3. Cardiomegaly and diffuse interstitial prominence suggestive of CHF. 4. Pulmonary arterial hypertension. 5. 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 6. Chronic appearing fractures of T6, T8, and L2.
--- NOTE | 2024-08-07 15:20 | DVH ---
PROCEDURE: Ultrasound-guided thoracentesis Procedural Personnel Attending physician(s): Fahad Flores Fellow physician(s): None Resident physician(s): None Advanced practice provider(s): None Pre-procedure diagnosis: Dyspnea Post-procedure diagnosis: Same Indication: Diagnostic and therapeutic Additional clinical history: None Complications: No immediate complications. IMPRESSION: Ultrasound-guided thoracentesis with drainage of 800 mL of serosanguinous fluid. Plan: Resume care by clinical team. Fluid analysis pending. PROCEDURE SUMMARY: - Ultrasound-guided thoracentesis - additional procedure(s): None PROCEDURE DETAILS: Pre-procedure Consent: Informed consent for the procedure including risks, benefits and alternatives was obtained and time-out was performed prior to the procedure. Preparation: The site was prepared an d draped using maximal sterile barrier technique including cutaneous antisepsis. Anesthesia/sedation level of anesthesia/sedation: No sedation Anesthesia/sedation administered by: Not applicable Total intra-service sedation time (minutes): Not applicable Limited thoracic ultrasound Limited thoracic ultrasound was performed. Left hemithorax findings: Moderate pleural effusion Right hemithorax findings: Not investigated Thoracentesis Local anesthesia was administered. A safe window for thoracentesis was identified with ultrasound. Th e pleural space was accessed and fluid return confirmed position. The fluid was drained. The catheter was removed and a sterile dressing was applied. Catheter size (Fr):5 Catheter valve: Yes Fluid appearance: serosanguinous Volume drained (mL): 800 Post-drainage ultrasound: Not performed Additional Details Additional description of procedure: None Registry event: V/3/f Device used: None Equipment details: None Specimens removed: Aspirated fluid was sent for analysis. Estimated blood loss (mL): Less than 10 Standardized report: [email or web address] Attestation Signer name: Fahad Flores I attest that I was present for the entire procedure. I reviewed the stored images and agree with the report as written.
--- NOTE | 2024-08-07 15:26 | DVH ---
CHEST RADIOGRAPH Indication: POST THORACENTESIS Technique: Single frontal view of the chest was obtained COMPARISON: XY CHEST PORTABLE on DOS: 08/06/24, XY CHEST PORTABLE on DOS: 07/28/24, XY CHEST PORTABLE on DOS: 07/26/24, XY CHEST XRAY 1 VIEW on DOS: 05/16/24 FINDINGS: Lines and Tubes: None Lungs: Clear Pleura: No effusion. Small left lateral pneumothorax post thoracentesis. 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
[2024-08-07 15:28] LABS: Band Neutrophils % (manual) 0; Basophils % (manual) 0 (0.0-2.0); Blast Cells 0; Eosinophils % (manual) 0 (0-7); Metamyelocytes % 0; Myelocytes % 0; Promyelocytes % 0; Reactive Lymphocytes 0
--- NOTE | 2024-08-07 15:37 | DVHPN2 ---
Subjective Overnight events noted. Patient's CT chest shows no evidence of PE but left- sided pleural effusion and may be bilateral consolidation/atelectasis. Patient is feeling much better. 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 Medications Current Medications Medications Dose Ordered Sig/Shanna Route Start Time Stop Time Status Last Admin Dose Admin Acetaminophen/ Hydrocodone Bitart 1 tab Q4HP PRN PO 08/06/24 15:15 Ondansetron HCl 4 mg Q4HP PRN IV 08/06/24 15:15 Docusate Sodium 100 mg BIDPRN PRN PO 08/06/24 15:15 Enoxaparin Sodium 40 mg DAILY SC 08/07/24 10:00 08/07/24 09:48 40 MG Acetaminophen 650 mg Q6HP PRN PO 08/06/24 15:15 Morphine Sulfate 2 mg Q4HPRN PRN IV 08/06/24 15:15 Nitroglycerin 0.4 mg Q5MINP PRN SL 08/06/24 15:15 Morphine Sulfate 2 mg Q30M PRN IV 08/06/24 15:15 Ceftriaxone Sodium 50 ml @ 100 mls/hr DAILY@09 IV 08/07/24 09:00 08/07/24 09:47 100 MLS/HR Amlodipine Besylate 10 mg DAILY PO 08/07/24 10:00 08/07/24 09:48 10 MG Aspirin 81 mg DAILY PO 08/07/24 10:00 08/07/24 09:49 81 MG Carvedilol 12.5 mg Q12HR PO 08/06/24 22:00 08/07/24 09:49 12.5 MG Clopidogrel Bisulfate 75 mg DAILY PO 08/07/24 10:00 08/07/24 09:50 75 MG Levothyroxine Sodium 100 mcg QAM PO 08/07/24 07:00 08/07/24 06:38 100 MCG Atorvastatin Calcium 20 mg HS PO 08/07/24 22:00 Doxycycline Hyclate 100 ml @ 50 mls/hr Q12H IV 08/07/24 10:00 08/07/24 10:52 50 MLS/HR Furosemide 40 mg BIDD IV 08/06/24 18:00 08/07/24 06:38 40 MG Empaglifozin 10 mg DAILY PO 08/07/24 10:00 08/07/24 09:50 10 MG Laboratory Results Laboratory Tests 08/07/24 05:28 Chemistry Test 08/07/24 05:28 Albumin 4.1 g/dL (3.2-4.8) Calcium Level 8.6 mg/dL (8.7-10.4) L Total Protein 6.4 g/dL (5.7-8.2) Coagulation Test 08/07/24 15:13 Prothrombin Time Pending Prothrombin Time INR Pending LFT Test 08/07/24 05:28 Alanine Aminotransferase (ALT) 15 U/L (7-40) Alkaline Phosphatase 63 U/L (46-116) Aspartate Amino Transferase (AST) 14 U/L (13-40) Total Bilirubin 0.3 mg/dL (0.2-1.0) Urinalysis Test 08/06/24 09:32 Urine Color Light-yellow (Yellow) Urine Clarity Clear (Clear) Urine pH 5.5 (5.0-9.0) Urine Specific [place] 1.018 (1.001-1.035) Urine Protein 1+ (Negative) H Urine Ketones Negative (Negative) Urine Blood Negative /uL (Negative) Urine Nitrite Negative (Negative) Urine Bilirubin Negative (Negative) Urine Urobilinogen Normal mg/dL (Negative) Urine Leukocyte Esterase Negative /uL (Negative) Urine RBC 1 /hpf (0 - 4) Urine Microscopic WBC 1 /HPF (0-5) Urine Squamous Epithelial Cells Few /hpf (<5) Urine Bacteria None seen /hpf (None Seen) Urine Hyaline Casts Few /lpf (0 - 2) Urine Mucus Few (None Seen) Urine Glucose Normal mg/dL (Normal) Assessment/Plan Assessment/Plan 89-year-old female with a known history of hypertension, hypothyroidism, previous history of CVA currently no residual deficit, presented to the hospital with sudden shortness of breaths found to have 1. Shortness of breaths with the elevated D-dimer ruled out pulmonary embolism 2. Suspected pneumonia 3. Bilateral pleural effusion left more than right. Status post left thoracentesis 4. Acute CHF exacerbation probably diastolic dysfunction , currently on IV diuretics 5. Moderate aortic stenosis 6. Hypertension 7. Hypothyroidism 8. History of CVA currently no residual deficit 9. Acute kidney injury watch for any contrast induced nephropathy on Lasix induced injury. -CT angio ruled out pulmonary embolism, Doppler venous shows no evidence of DVT . Watch for any contrast induced nephropathy or Lasix induced injury. -Doppler venous to rule out DVT, IV antibiotics, repeat BMP in a.m. -physical therapy evaluation and treatment, discharge plan. Plan discussed with: Patient My Orders Orders - NICHOLAS BAILEY MD Procedure Category Date Status Time Pharmacy [facility] 08/06/24 In Process Clarification: 16:29 Doxycycline PHA 08/07/24 In Process 100mg/100ml 10:00 Prothrombin Time W/ LAB 08/07/24 In Process INR 14:06 * Radiologist Consult CONS 08/07/24 Transmitted 14:06 B-Type Natriuretic LAB 08/08/24 Verified Peptide 04:00 Date of Service: Aug 07, 2024 Billing Provider: NICHOLAS BAILEY MD Common Visit Codes: NOT BILLABLE NICHOLAS BAILEY MD Aug 07, 2024 15:37
[2024-08-07 15:49] LABS: INR 1.12 (0.9-1.15); Prothrombin Time 11.7 sec (9.3-11.8)
--- NOTE | 2024-08-07 15:56 | DVHSR ---
APPROVED REPORT EXAM: LIMITED Two-dimensional and M-mode echocardiogram with Doppler and color Doppler. Blood Pressure: 145/69 mmHg INDICATION hx of Aortic Stenosis RISK FACTORS Height: 5' 4", Weight: 144 DIMENSIONS LVDd5.3 (3.8-5.7cm)LA (2D)4.7 (1.9-4.0cm)Aortic Root (2.0-3.7cm) LVDs3.5 (2.5-4.0cm)LA (MM) (1.9-4.0cm)Aortic Cusp Exc (1.5-2.0cm) EF (%) 62.0 (55-70%)Rt. Atrium4.2 (1.9-4.0cm)Asc. Aorta cm IVSd1.0 (0.7-1.1cm)RV (D) (1.8-2.4cm) PWd1.0 (0.7-1.1cm) Mitral Valve MitralMitral Stenosis E wave1.10m/sMV Mean GR.mmHg A wave0.50m/sMV Peak GR.mmHg E/A ratio2.22D MVAcm2 Aortic Valve Aortic ValveAortic Stenosis V10.80m/Amber Mean GR.40mmHg V24.20m/Amber Peak GR.70mmHg LVOT Diameter2.1 (1.8-2.4cm)Doppler AVA0.66cm2 AI P 1/2 Izwt941.62ms Conclusion lvef 40-45% RV enlarged biatrial enlargement severe aortic regurg severe aortic stenosis, mean gradient of 40 mmgh severe mac noted
[2024-08-07 16:42] LABS: Lymphocytes % (manual) 9 (10.0-50.0); Platelet Count (auto) 218 10^3/uL (140-450)
[2024-08-07 16:43] LABS: Hypochromia Moderate; Monocytes % (manual) 5 (0-12); Platelet Estimate Adequate
[2024-08-07] MEDS: ATORVASTATIN 20 MG TAB PO SCH (21:06)
[2024-08-07 22:47] LABS: Body Fluid Red Blood Cells 3324 CUMM (0-2000); Body Fluid White Blood Cells 364 CUMM (0-200)
--- NOTE | 2024-08-07 23:27 | DVHPN2 ---
Progress Note - Dictate Date Seen: Aug 07, 2024 Medical Necessity Reason Pt with a Central, PICC or Fol: No Subjective Patient seen and examined at bedside. Remains on supplemental oxygen Overnight events reviewed. vital signs Vital Sign Date Time Temp Pulse Resp B/P (MAP) Pulse Ox O2 Delivery O2 Flow Rate FiO2 08/07/24 22:07 63 111/52 08/07/24 20:00 Nasal Cannula* 2 28 08/07/24 16:38 97.9 16 97 97.9 Total Intake and Output 08/06/24 08/06/24 08/07/24 15:00 23:00 07:00 Intake Total 175 ml 125 ml 480 ml Balance 175 ml 125 ml 480 ml medications Current Medications Medications Dose Ordered Sig/Shanna Route Start Time Stop Time Status Last Admin Dose Admin Acetaminophen/ Hydrocodone Bitart 1 tab Q4HP PRN PO 08/06/24 15:15 Ondansetron HCl 4 mg Q4HP PRN IV 08/06/24 15:15 Docusate Sodium 100 mg BIDPRN PRN PO 08/06/24 15:15 Enoxaparin Sodium 40 mg DAILY SC 08/07/24 10:00 08/07/24 09:48 40 MG Acetaminophen 650 mg Q6HP PRN PO 08/06/24 15:15 Morphine Sulfate 2 mg Q4HPRN PRN IV 08/06/24 15:15 Nitroglycerin 0.4 mg Q5MINP PRN SL 08/06/24 15:15 Morphine Sulfate 2 mg Q30M PRN IV 08/06/24 15:15 Ceftriaxone Sodium 50 ml @ 100 mls/hr DAILY@09 IV 08/07/24 09:00 08/07/24 09:47 100 MLS/HR Amlodipine Besylate 10 mg DAILY PO 08/07/24 10:00 08/07/24 09:48 10 MG Aspirin 81 mg DAILY PO 08/07/24 10:00 08/07/24 09:49 81 MG Carvedilol 12.5 mg Q12HR PO 08/06/24 22:00 08/07/24 21:07 12.5 MG Clopidogrel Bisulfate 75 mg DAILY PO 08/07/24 10:00 08/07/24 09:50 75 MG Levothyroxine Sodium 100 mcg QAM PO 08/07/24 07:00 08/07/24 06:38 100 MCG Atorvastatin Calcium 20 mg HS PO 08/07/24 22:00 08/07/24 21:06 20 MG Doxycycline Hyclate 100 ml @ 50 mls/hr Q12H IV 08/07/24 10:00 08/07/24 21:06 50 MLS/HR Furosemide 40 mg BIDD IV 08/06/24 18:00 08/07/24 18:00 40 MG Empaglifozin 10 mg DAILY PO 08/07/24 10:00 08/07/24 09:50 10 MG objective Gen.: Patient lying in bed in no apparent distress. On supplemental oxygen. Head: Normocephalic, atraumatic. Eyes: EOMI/PERRLA. Ears: Normal hearing. Normal anatomy. Neck/trachea: Trachea midline, supple. Nose: Normal external anatomy. Mouth: Moist mucous membranes. Chest: Decreased air entry bilaterally. No wheezing or rhonchi. Cardiovascular: Positive S1, positive S2. Regular rate and rhythm. Abdomen: Positive bowel sounds in all 4 quadrants. Soft, non-tender, non- distended. : Deferred. Rectal: Deferred. Skin: Warm, dry. Intact. Extremities: 2+ radial pulses bilaterally. No lower extremity edema. Neuro: Awake, alert, oriented x3. No gross motor or sensory deficits. Cranial nerves II through XII intact. 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 Continue bronchodilators Continue steroids Continue antibiotics Incentive spirometry Diurese with Lasix Monitor electrolytes. Supplement as necessary. Monitor renal function - creatinine trending up Cardiology recommendations appreciated. Repeat CXR in AM to assess for interval changes. Labs and imaging reviewed. Rest of plan as noted below. Plan: Echo report reviewed from May 22, 2024 Ejection fraction 60%. Mild moderate mitral regurgitation. Mild mitral regurgitation. Mild tricuspid regurgitation. Right ventricular systolic pressure 40 mmHg Ultrasound venous Doppler lower extremities revealed no acute DVT. Follow up CTA results. CTA ordered to rule out pulmonary embolism due to elevated D-dimer. Supplemental oxygen Keep O2 saturation above 92% Continue antibiotics Follow up cultures Steroids Bronchodilators Continue diuresis Monitor electrolytes. Supplement as necessary. Monitor renal function DVT prophylaxis Prognosis: Poor given multiple comorbidities. Rest of plan per hospitalist and other consultants. Thank you Dr. Azevedo for allowing me to participate in this patient's care. Further recommendations will depend on patient's clinical course. Please do not hesitate to contact me if you have any questions or concerns. This medical document was created using an electronic medical record system with [employer] dictation system. Although this document has been carefully reviewed, there may still be some phonetic and typographical errors. These areas are purely typographical due to imperfections of the software programs, and do not reflect any compromise in the patient's medical care. Plan discussed with: Patient, Other (RN) MONTANA RIVERA MD Aug 07, 2024 23:27
[2024-08-08] VITALS (8 sets, daily range): BP systolic 126–153; BP diastolic 57–100; PULSE 54–83; RESP 16–18; TEMP 97.4–98.4; O2SAT 94–99
--- NOTE | 2024-08-08 10:19 | DVH ---
CHEST RADIOGRAPH Indication: Monitor pneumothorax, left Technique: Single frontal view of the chest was obtained Comparison: XY CHEST PORTABLE on DOS: 08/07/24, XY CHEST PORTABLE on DOS: 08/06/24, XY CHEST PORTABLE on DOS: 07/28/24, XY CHEST PORTABLE on DOS: 07/26/24, XY CHEST XRAY 1 VIEW on DOS: 05/16/24, XY CHEST BRIAN BLE on DOS: 08/07/24 FINDINGS: Lines and Tubes: None Lungs: Clear Pleura: No effusion. Small left lateral pneumothorax post thoracentesis. 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
--- NOTE | 2024-08-08 16:58 | DVHPN2 ---
Subjective Overnight events noted. Patient's CT chest shows no evidence of PE but left- sided pleural effusion and may be bilateral consolidation/atelectasis. Patient is feeling much better. Changes from previous H/P or p: No Changes Objective Vitals Vital Signs Date Time Temp Pulse Resp B/P (MAP) Pulse Ox O2 Delivery O2 Flow Rate FiO2 08/08/24 13:00 97.7 59 17 141/63 (89) 99 97.7 08/08/24 08:00 Nasal Cannula* 2 28 Intake/Output Intake and Output 08/08/24 07:00 Intake Total 900 ml Output Total 1350 ml Balance -450 ml Intake Oral 700 ml IV Total 200 ml Output Urine Total 1350 ml Exam HEENT pupils are reactive Neck is supple CV is S1-S2 regular rate and rhythm Respiratory diminished breath sounds bilateral bases left more than right leg tone GI positive bowel sound Extremity no edema [employer] no motor deficit Medications Current Medications Medications Dose Ordered Sig/Shanna Route Start Time Stop Time Status Last Admin Dose Admin Acetaminophen/ Hydrocodone Bitart 1 tab Q4HP PRN PO 08/06/24 15:15 Ondansetron HCl 4 mg Q4HP PRN IV 08/06/24 15:15 Docusate Sodium 100 mg BIDPRN PRN PO 08/06/24 15:15 Enoxaparin Sodium 40 mg DAILY SC 08/07/24 10:00 08/08/24 09:16 40 MG Acetaminophen 650 mg Q6HP PRN PO 08/06/24 15:15 Morphine Sulfate 2 mg Q4HPRN PRN IV 08/06/24 15:15 Nitroglycerin 0.4 mg Q5MINP PRN SL 08/06/24 15:15 Morphine Sulfate 2 mg Q30M PRN IV 08/06/24 15:15 Ceftriaxone Sodium 50 ml @ 100 mls/hr DAILY@09 IV 08/07/24 09:00 08/08/24 09:14 100 MLS/HR Amlodipine Besylate 10 mg DAILY PO 08/07/24 10:00 08/08/24 09:12 10 MG Aspirin 81 mg DAILY PO 08/07/24 10:00 08/08/24 09:11 81 MG Carvedilol 12.5 mg Q12HR PO 08/06/24 22:00 08/08/24 09:10 12.5 MG Clopidogrel Bisulfate 75 mg DAILY PO 08/07/24 10:00 08/08/24 09:11 75 MG Levothyroxine Sodium 100 mcg QAM PO 08/07/24 07:00 08/08/24 06:26 100 MCG Atorvastatin Calcium 20 mg HS PO 08/07/24 22:00 08/07/24 21:06 20 MG Doxycycline Hyclate 100 ml @ 50 mls/hr Q12H IV 08/07/24 10:00 08/08/24 09:14 50 MLS/HR Furosemide 40 mg BIDD IV 08/06/24 18:00 08/08/24 05:36 40 MG Empaglifozin 10 mg DAILY PO 08/07/24 10:00 08/08/24 09:07 10 MG Laboratory Results Laboratory Tests 08/07/24 05:28 Cardiac Markers Test 08/08/24 04:43 B-Type Natriuretic Peptide 700.75 pg/mL (0-100) Urinalysis Test 08/06/24 09:32 Urine Color Light-yellow (Yellow) Urine Clarity Clear (Clear) Urine pH 5.5 (5.0-9.0) Urine Specific [place] 1.018 (1.001-1.035) Urine Protein 1+ (Negative) H Urine Ketones Negative (Negative) Urine Blood Negative /uL (Negative) Urine Nitrite Negative (Negative) Urine Bilirubin Negative (Negative) Urine Urobilinogen Normal mg/dL (Negative) Urine Leukocyte Esterase Negative /uL (Negative) Urine RBC 1 /hpf (0 - 4) Urine Microscopic WBC 1 /HPF (0-5) Urine Squamous Epithelial Cells Few /hpf (<5) Urine Bacteria None seen /hpf (None Seen) Urine Hyaline Casts Few /lpf (0 - 2) Urine Mucus Few (None Seen) Urine Glucose Normal mg/dL (Normal) Microbiology Microbiology Date/Time Source Procedure Growth Status 08/07/24 15:10 Pleural Fluid Gram Stain Pending Resulted 08/07/24 15:10 Pleural Fluid Aerobic Culture - Preliminary Resulted Assessment/Plan Assessment/Plan 89-year-old female with a known history of hypertension, hypothyroidism, previous history of CVA currently no residual deficit, presented to the hospital with sudden shortness of breaths found to have 1. Shortness of breaths with the elevated D-dimer ruled out pulmonary embolism 2. Suspected pneumonia 3. Bilateral pleural effusion left more than right. Status post left thoracentesis 4. Acute CHF exacerbation probably diastolic dysfunction , currently on IV diuretics 5. Moderate aortic stenosis 6. Hypertension 7. Hypothyroidism 8. History of CVA currently no residual deficit 9. Acute kidney injury watch for any contrast induced nephropathy on Lasix induced injury. -CT angio ruled out pulmonary embolism, Doppler venous shows no evidence of DVT . Watch for any contrast induced nephropathy or Lasix induced injury. - IV antibiotics, repeat BMP in a.m. -physical therapy evaluation and treatment, discharge plan. Plan discussed with: Patient Date of Service: Aug 08, 2024 Billing Provider: NICHOLAS BAILEY MD Common Visit Codes: NOT BILLABLE NICHOLAS BAILEY MD Aug 08, 2024 16:58
[2024-08-08 17:14] LABS: Potassium 3.8 mmol/L (3.5-5.1)
[2024-08-08 17:15] LABS: Anion Gap 9 (5-15); Calcium 9.2 mg/dL (8.7-10.4); Carbon Dioxide 27 mmol/L (20-31)
[2024-08-08 17:20] LABS: BUN/Creatinine Ratio 30.7 (10.0-20.0); Glucose 105 mg/dL (74-106)
[2024-08-08 17:21] LABS: Blood Urea Nitrogen 35 mg/dL (9-23); Chloride 110 mmol/L (98-107); Sodium 146 mmol/L (136-145)
--- NOTE | 2024-08-08 21:39 | DVHPN2 ---
Progress Note - Dictate Date Seen: Aug 08, 2024 Medical Necessity Reason Pt with a Central, PICC or Fol: No Subjective Patient seen and examined at bedside. Remains on supplemental oxygen Overnight events reviewed. vital signs Vital Sign Date Time Temp Pulse Resp B/P (MAP) Pulse Ox O2 Delivery O2 Flow Rate FiO2 08/08/24 18:37 126/60 08/08/24 17:00 98.4 65 16 94 98.4 08/08/24 08:00 Nasal Cannula* 2 28 Total Intake and Output 08/07/24 08/07/24 08/08/24 15:00 23:00 07:00 Intake Total 150 ml 300 ml 450 ml Output Total 900 ml 450 ml Balance 150 ml -600 ml 0 ml medications Current Medications Medications Dose Ordered Sig/Shanna Route Start Time Stop Time Status Last Admin Dose Admin Acetaminophen/ Hydrocodone Bitart 1 tab Q4HP PRN PO 08/06/24 15:15 Ondansetron HCl 4 mg Q4HP PRN IV 08/06/24 15:15 Docusate Sodium 100 mg BIDPRN PRN PO 08/06/24 15:15 Enoxaparin Sodium 40 mg DAILY SC 08/07/24 10:00 08/08/24 09:16 40 MG Acetaminophen 650 mg Q6HP PRN PO 08/06/24 15:15 Morphine Sulfate 2 mg Q4HPRN PRN IV 08/06/24 15:15 Nitroglycerin 0.4 mg Q5MINP PRN SL 08/06/24 15:15 Morphine Sulfate 2 mg Q30M PRN IV 08/06/24 15:15 Ceftriaxone Sodium 50 ml @ 100 mls/hr DAILY@09 IV 08/07/24 09:00 08/08/24 09:14 100 MLS/HR Amlodipine Besylate 10 mg DAILY PO 08/07/24 10:00 08/08/24 09:12 10 MG Aspirin 81 mg DAILY PO 08/07/24 10:00 08/08/24 09:11 81 MG Carvedilol 12.5 mg Q12HR PO 08/06/24 22:00 08/08/24 09:10 12.5 MG Clopidogrel Bisulfate 75 mg DAILY PO 08/07/24 10:00 08/08/24 09:11 75 MG Levothyroxine Sodium 100 mcg QAM PO 08/07/24 07:00 08/08/24 06:26 100 MCG Atorvastatin Calcium 20 mg HS PO 08/07/24 22:00 08/07/24 21:06 20 MG Doxycycline Hyclate 100 ml @ 50 mls/hr Q12H IV 08/07/24 10:00 08/08/24 09:14 50 MLS/HR Furosemide 40 mg BIDD IV 08/06/24 18:00 08/08/24 18:37 40 MG Empaglifozin 10 mg DAILY PO 08/07/24 10:00 08/08/24 09:07 10 MG objective Gen.: Patient lying in bed in no apparent distress. On supplemental oxygen. Head: Normocephalic, atraumatic. Eyes: EOMI/PERRLA. Ears: Normal hearing. Normal anatomy. Neck/trachea: Trachea midline, supple. Nose: Normal external anatomy. Mouth: Moist mucous membranes. Chest: Decreased air entry bilaterally. No wheezing or rhonchi. Cardiovascular: Positive S1, positive S2. Regular rate and rhythm. Abdomen: Positive bowel sounds in all 4 quadrants. Soft, non-tender, non- distended. : Deferred. Rectal: Deferred. Skin: Warm, dry. Intact. Extremities: 2+ radial pulses bilaterally. No lower extremity edema. Neuro: Awake, alert, oriented x3. No gross motor or sensory deficits. Cranial nerves II through XII intact. 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 Follow up pleural fluid cultures and cytology Continue antibiotics Incentive spirometry Blood pressure control Diurese with Lasix Monitor electrolytes. Supplement as necessary. Monitor renal function - creatinine trending down Cardiology recommendations appreciated. Recommend followup in Pulmonary Clinic in 1-2 weeks for limited chest ultrasound and possible thoracentesis. Labs and imaging reviewed. Rest of plan as noted below. Plan: Echo report reviewed from May 22, 2024 Ejection fraction 60%. Mild moderate mitral regurgitation. Mild mitral regurgitation. Mild tricuspid regurgitation. Right ventricular systolic pressure 40 mmHg Ultrasound venous Doppler lower extremities revealed no acute DVT. CTA ruled out pulmonary embolism Supplemental oxygen Keep O2 saturation above 92% Continue antibiotics Follow up cultures Steroids Bronchodilators Continue diuresis Monitor electrolytes. Supplement as necessary. Monitor renal function DVT prophylaxis - Lovenox Prognosis: Guarded given multiple comorbidities. Rest of plan per hospitalist and other consultants. Thank you Dr. Azevedo for allowing me to participate in this patient's care. Further recommendations will depend on patient's clinical course. Please do not hesitate to contact me if you have any questions or concerns. This medical document was created using an electronic medical record system with [employer] dictation system. Although this document has been carefully reviewed, there may still be some phonetic and typographical errors. These areas are purely typographical due to imperfections of the software programs, and do not reflect any compromise in the patient's medical care. Plan discussed with: Patient, Other (TASHIA Chacon) [place] RIVERA MD Aug 08, 2024 21:39
[2024-08-09] VITALS (7 sets, daily range): BP systolic 133–142; BP diastolic 54–66; PULSE 60–72; RESP 17–19; TEMP 36.6; O2SAT 93–94
[2024-08-09 07:19] LABS: Anion Gap 12 (5-15); Carbon Dioxide 27 mmol/L (20-31); Chloride 106 mmol/L (98-107); Sodium 145 mmol/L (136-145)
[2024-08-09 07:20] LABS: Calcium 9.5 mg/dL (8.7-10.4)
[2024-08-09 07:24] LABS: Potassium 3.5 mmol/L (3.5-5.1)
[2024-08-09 07:25] LABS: BUN/Creatinine Ratio 34.4 (10.0-20.0); Glucose 89 mg/dL (74-106)
[2024-08-09 07:26] LABS: Blood Urea Nitrogen 33 mg/dL (9-23)
[2024-08-09 13:07] LABS: Protein, Body Fluid 2.5 g/dL (.)
[2024-08-09] MEDS ORDERED: FURO1TAB31 PO (16:33)
[2024-08-09] MEDS ORDERED: CEFD300C2 PO (16:33)
[2024-08-09] MEDS ORDERED: POTA-215 PO (16:33)
[2024-08-09] MEDS ORDERED: EMPA1TAB PO (16:33)
--- NOTE | 2024-08-09 16:38 | DVHDS2 ---
Discharge Summary Date of Admission Aug 06, 2024 at 15:02 Date of Discharge: Aug 09, 2024 Labs/Diagnostic Data: Laboratory Results Test 08/09/24 06:10 08/08/24 04:43 08/07/24 15:13 08/07/24 15:10 Sodium Level 145 mmol/L (136-145) Potassium Level 3.5 mmol/L (3.5-5.1) Chloride Level 106 mmol/L (98-107) Carbon Dioxide Level 27 mmol/L (20-31) Anion Gap 12 (5-15) Blood Urea Nitrogen 33 mg/dL (9-23) Creatinine 0.96 mg/dL (0.550-1.02) Glomerular Filtration Rate Calc 57 mL/min (>90) BUN/Creatinine Ratio 34.4 (10.0-20.0) Serum Glucose 89 mg/dL (74-106) Calcium Level 9.5 mg/dL (8.7-10.4) B-Type Natriuretic Peptide 700.75 pg/mL (0-100) Prothrombin Time 11.7 sec (9.3-11.8) Prothrombin Time INR 1.12 (0.9-1.15) Body Fluid Source Pleural fluid Body Fluid pH 8.0 Body Fluid WBC (Manual) 364 CUMM (0-200) Body Fluid RBC (Manual) 3324 CUMM (0-2000) Body Fluid Mononuclear Cells 80 % Body Fluid Polymorphonuclear Cells 20 % (0-25) Body Fluid Glucose 130 mg/dL (.) Body Fluid Total Protein 2.5 g/dL (.) Test 08/07/24 05:28 08/06/24 21:06 08/06/24 14:03 08/06/24 09:32 White Blood Count 4.9 10^3/uL (4.4-10.8) Red Blood Count 4.71 10^6/uL (4.0-5.20) Hemoglobin 10.0 g/dL (12.2-16.2) Hematocrit 32.2 % (36.0-46.0) Mean Corpuscular Volume 68.4 fL (80.0-100.0) Mean Corpuscular Hemoglobin 21.2 pg (28.0-32.0) Mean Corpuscular Hemoglobin Concent 30.9 g/dL (32.0-36.0) Red Cell Distribution Width 19.0 % (11.8-14.3) Platelet Count 218 10^3/uL (140-450) Mean Platelet Volume 9.0 fL (6.9-10.8) Neutrophils (%) (Auto) 82.0 % (37.0-80.0) Lymphocytes (%) (Auto) 12.6 % (10.0-50.0) Monocytes (%) (Auto) 5.2 % (0.0-12.0) Eosinophils (%) (Auto) 0.0 % (0.0-7.0) Basophils (%) (Auto) 0.2 % (0.0-2.0) Neutrophils # (Auto) 4.0 10 ^3/uL (1.6-8.6) Lymphocytes # (Auto) 0.6 10 ^3/uL (0.4-5.4) Monocytes # (Auto) 0.3 10 ^3/uL (0-1.3) Eosinophils # (Auto) 0 10 ^3/uL (0-0.8) Basophils # (Auto) 0 10 ^3/uL (0-0.2) Differential Total Cells Counted 100.0 (100) Neutrophils % (Manual) 86 (37.0-80.0) Band Neutrophils % (Manual) 0 Lymphocytes % (Manual) 9 (10.0-50.0) Monocytes % (Manual) 5 (0-12) Eosinophils % (Manual) 0 (0-7) Basophils % (Manual) 0 (0.0-2.0) Metamyelocytes % (manual) 0 Myelocytes % (Manual) 0 Promyelocytes % (Manual) 0 Blast Cells % (Manual) 0 Nucleated Red Blood Cells 0.2 % Reactive Lymphocytes 0 Platelet Estimate Adequate Hypochromasia (manual) Moderate Microcytosis Moderate Margaret Cells Few Total Bilirubin 0.3 mg/dL (0.2-1.0) Aspartate Amino Transferase (AST) 14 U/L (13-40) Alanine Aminotransferase (ALT) 15 U/L (7-40) Alkaline Phosphatase 63 U/L (46-116) Lactate Dehydrogenase 179 U/L (120-246) Total Protein 6.4 g/dL (5.7-8.2) Albumin 4.1 g/dL (3.2-4.8) Troponin I High Sensitivity 14 ng/L (</=34) D-Dimer, Quantitative 1.29 mg/L FEU (0.0-0.49) Hemoglobin A1c 5.1 % A1C (<5.7) Magnesium Level 1.9 mg/dL (1.6-2.6) Triglycerides Level 74 mg/dL (< 150) Cholesterol Level 135 mg/dL (< 200) LDL Cholesterol 81 mg/dL (< 100) HDL Cholesterol 41 mg/dL (40-59) Thyroid Stimulating Hormone (TSH) 6.15 uIU/mL (0.55-4.78) Urine Color Light-yellow (Yellow) Urine Clarity Clear (Clear) Urine pH 5.5 (5.0-9.0) Urine Specific [place] 1.018 (1.001-1.035) Urine Protein 1+ (Negative) Urine Ketones Negative (Negative) Urine Blood Negative /uL (Negative) Urine Nitrite Negative (Negative) Urine Bilirubin Negative (Negative) Urine Urobilinogen Normal mg/dL (Negative) Urine Leukocyte Esterase Negative /uL (Negative) Urine RBC 1 /hpf (0 - 4) Urine Microscopic WBC 1 /HPF (0-5) Urine Squamous Epithelial Cells Few /hpf (<5) Urine Bacteria None seen /hpf (None Seen) Urine Hyaline Casts Few /lpf (0 - 2) Urine Mucus Few (None Seen) Urine Glucose Normal mg/dL (Normal) Other Laboratory Tests 08/09/24 06:10 08/07/24 05:28 Brief Hx & Hospital Course: 89-year-old female with a known history of hypertension, hypothyroidism, previous history of CVA currently no residual deficit, presented to the hospital with sudden shortness of breaths found to have bilateral pleural effusion left more than right. Patient also have acute CHF exacerbation with systolic dysfunction requiring IV diuretics. Patient does have [id number] aortic stenosis as well as aortic regurgitation as well as pulmonary hypertension. Patient has received IV diuresis during the hospital stay as well as left-sided thoracentesis. 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 Patient is currently cleared by Cardiology as well as pulmonary to be discharged. Patient is being discharged under stable condition with the new medication as prescribed. Patient did not qualify for home oxygen. Condition at Discharge: Stable Final Diagnosis/Problems List 89-year-old female with a known history of hypertension, hypothyroidism, previous history of CVA currently no residual deficit, presented to the hospital with sudden shortness of breaths found to have 1. Shortness of breaths with the elevated D-dimer ruled out pulmonary embolism 2. Suspected pneumonia 3. Bilateral pleural effusion left more than right. Status post left thoracentesis 4. Acute CHF exacerbation p with systolic dysfunction, 5. M moderate/severe aortic stenosis/aortic regurgitation 6. Hypertension 7. Hypothyroidism 8. History of CVA currently no residual deficit 9. Cardiomyopathy with EF of 40-45% 10. 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 The patient is saturating 94% on room air as well as exertion. Discharge Disposition: Home with Health Services SNF Discharge Will this Physician continue t: No Discharge Instruct/Medications Diet: Cardiac 2g Na,low cholest Activity: No Restrictions, As Tolerated Follow Up/Referral: Follow up with the PCP in 1-2 weeks Follow up with the Cardiology in 1-2 weeks Follow up with the Pulmonary Dr. Aguilera in 1-2 weeks Medications: Resume home medications. Discharge Statement: "Patient was advised to return to the ER or call 911 if any headaches, dizziness, shortness of breath, chest pain, abdominal pain, bleeding, fevers, or worsening of medical condition. Patient was counseled about treatment plan, medications, possible side effects, patientverbalized understanding. All questions were answered to the best of my ability. This discharge took greater then 30 minutes in planning, reviewing documentation, counseling the patient, and discussing with other team members." ASSESSMENT ASSESSMENT Assessment 89-year-old female with a known history of hypertension, hypothyroidism, previous history of CVA currently no residual deficit, presented to the hospital with sudden shortness of breaths found to have 1. Shortness of breaths with the elevated D-dimer ruled out pulmonary embolism 2. Suspected pneumonia 3. Bilateral pleural effusion left more than right. Status post left thoracentesis 4. Acute CHF exacerbation p with systolic dysfunction, 5. M moderate/severe aortic stenosis/aortic regurgitation 6. Hypertension 7. Hypothyroidism 8. History of CVA currently no residual deficit 9. Cardiomyopathy with EF of 40-45% Date of Service: Aug 09, 2024 Billing Provider: NICHOLAS BAILEY MD Common Visit Codes: NOT BILLABLE NICHOLAS BAILEY MD Aug 09, 2024 16:37
--- NOTE | 2024-08-09 18:04 | DVHPN2 ---
Progress Note - Dictate Date Seen: Aug 09, 2024 Medical Necessity Reason Pt with a Central, PICC or Fol: No Subjective Patient seen and examined at bedside. Remains on supplemental oxygen Overnight events reviewed. vital signs Vital Sign Date Time Temp Pulse Resp B/P (MAP) Pulse Ox O2 Delivery O2 Flow Rate FiO2 08/09/24 16:59 97.9 67 19 134/54 (80) 94 97.9 08/09/24 08:00 Room Air* 0 21 Total Intake and Output 08/08/24 08/08/24 08/09/24 15:00 23:00 07:00 Intake Total 150 ml 755 ml 400 ml Output Total 1030 ml 610 ml Balance 150 ml -275 ml -210 ml medications Current Medications Medications Dose Ordered Sig/Shanna Route Start Time Stop Time Status Last Admin Dose Admin Acetaminophen/ Hydrocodone Bitart 1 tab Q4HP PRN PO 08/06/24 15:15 Ondansetron HCl 4 mg Q4HP PRN IV 08/06/24 15:15 Docusate Sodium 100 mg BIDPRN PRN PO 08/06/24 15:15 Enoxaparin Sodium 40 mg DAILY SC 08/07/24 10:00 08/09/24 08:38 40 MG Acetaminophen 650 mg Q6HP PRN PO 08/06/24 15:15 Morphine Sulfate 2 mg Q4HPRN PRN IV 08/06/24 15:15 Nitroglycerin 0.4 mg Q5MINP PRN SL 08/06/24 15:15 Morphine Sulfate 2 mg Q30M PRN IV 08/06/24 15:15 Ceftriaxone Sodium 50 ml @ 100 mls/hr DAILY@09 IV 08/07/24 09:00 08/09/24 08:41 100 MLS/HR Amlodipine Besylate 10 mg DAILY PO 08/07/24 10:00 08/09/24 08:39 10 MG Aspirin 81 mg DAILY PO 08/07/24 10:00 08/09/24 08:38 81 MG Carvedilol 12.5 mg Q12HR PO 08/06/24 22:00 08/09/24 08:39 12.5 MG Clopidogrel Bisulfate 75 mg DAILY PO 08/07/24 10:00 08/09/24 08:40 75 MG Levothyroxine Sodium 100 mcg QAM PO 08/07/24 07:00 08/09/24 05:37 100 MCG Atorvastatin Calcium 20 mg HS PO 08/07/24 22:00 08/08/24 21:32 20 MG Doxycycline Hyclate 100 ml @ 50 mls/hr Q12H IV 08/07/24 10:00 08/09/24 08:41 50 MLS/HR Furosemide 40 mg BIDD IV 08/06/24 18:00 08/09/24 05:37 40 MG Empaglifozin 10 mg DAILY PO 08/07/24 10:00 08/09/24 08:40 10 MG objective Gen.: Patient lying in bed in no apparent distress. On supplemental oxygen. Head: Normocephalic, atraumatic. Eyes: EOMI/PERRLA. Ears: Normal hearing. Normal anatomy. Neck/trachea: Trachea midline, supple. Nose: Normal external anatomy. Mouth: Moist mucous membranes. Chest: Decreased air entry bilaterally. No wheezing or rhonchi. Cardiovascular: Positive S1, positive S2. Regular rate and rhythm. Abdomen: Positive bowel sounds in all 4 quadrants. Soft, non-tender, non- distended. : Deferred. Rectal: Deferred. Skin: Warm, dry. Intact. Extremities: 2+ radial pulses bilaterally. No lower extremity edema. Neuro: Awake, alert, oriented x3. No gross motor or sensory deficits. Cranial nerves II through XII intact. 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 Pleural fluid cultures show no growth Continue antibiotics Incentive spirometry Blood pressure control Diurese with Lasix Monitor electrolytes. Supplement as necessary. Monitor renal function Cardiology recommendations appreciated. Patient is stable for discharge from the pulmonary standpoint Recommend followup in Pulmonary Clinic in 1-2 weeks for limited chest ultrasound and possible thoracentesis. Labs and imaging reviewed. Rest of plan as noted below. Plan: Echo report reviewed from May 22, 2024 Ejection fraction 60%. Mild moderate mitral regurgitation. Mild mitral regurgitation. Mild tricuspid regurgitation. Right ventricular systolic pressure 40 mmHg Ultrasound venous Doppler lower extremities revealed no acute DVT. CTA ruled out pulmonary embolism Supplemental oxygen Keep O2 saturation above 92% Continue antibiotics Follow up cultures Steroids Bronchodilators Continue diuresis Monitor electrolytes. Supplement as necessary. Monitor renal function DVT prophylaxis - Lovenox Prognosis: Guarded given multiple comorbidities. Rest of plan per hospitalist and other consultants. Thank you Dr. Azevedo for allowing me to participate in this patient's care. Further recommendations will depend on patient's clinical course. Please do not hesitate to contact me if you have any questions or concerns. This medical document was created using an electronic medical record system with [employer] dictation system. Although this document has been carefully reviewed, there may still be some phonetic and typographical errors. These areas are purely typographical due to imperfections of the software programs, and do not reflect any compromise in the patient's medical care. Dietary Evaluation Review Comments: 1) Encourage optimal PO intake 2) Follow-up with cardiology and nephrology 3) Continue to monitor I&O, labs, and skin integrity Expected Outcomes/Goals: 1) appetite and labs to improve 2) f/u in 3-5 days Plan discussed with: Patient, Other (TASHIA Chacon) [place]NA RIVERA MD Aug 09, 2024 18:04
== END 2024-08-09 19:00 | disposition home health service (06) | DRG 177 ==
LOC: EDBD 07:06 → ER 07:08 → OVERFLOW 15:02 → TELE-EAST 17:48
PROVIDERS: ADMIT Internal Medicine; ATTEND Internal Medicine
PROC: 0W9B3ZX Drainage of Left Pleural Cavity, Percutaneous Approach, Diagnostic (ICD-10-PCS; principal; 2024-08-07)
DX: J15.69 Pneumonia due to other Gram-negative bacteria (principal); I50.23 Acute on chronic systolic (congestive) heart failure; J96.01 Acute respiratory failure with hypoxia; J91.8 Pleural effusion in other conditions classified elsewhere; J93.83 Other pneumothorax; I42.9 Cardiomyopathy, unspecified; I11.0 Hypertensive heart disease with heart failure; J15.9 Unspecified bacterial pneumonia; D64.9 Anemia, unspecified; E78.5 Hyperlipidemia, unspecified; I27.20 Pulmonary hypertension, unspecified; E05.90 Thyrotoxicosis, unspecified without thyrotoxic crisis or storm; I35.1 Nonrheumatic aortic (valve) insufficiency; E03.9 Hypothyroidism, unspecified; J98.4 Other disorders of lung; F41.9 Anxiety disorder, unspecified; Z93.3 Colostomy status; Z86.73 Personal history of transient ischemic attack (TIA), and cerebral infarction without residual deficits; Z79.82 Long term (current) use of aspirin; Z79.899 Other long term (current) drug therapy; Z90.49 Acquired absence of other specified parts of digestive tract
CPT/HCPCS: 32555; 36415; 71045; 71275; 76942; 80048; 80053; 80061; 81001; 83036; 83615; 83735; 83880; 83986; 84443; 84484; 85025; 85379; 85610; 87070; 87205; 89051; 93005; 93306; 93970; 96365; 96375; G0378

== ENCOUNTER 2024-09-18 05:50 | Inpatient (IN) | payer OTHER ==
[2024-09-18] VITALS (7 sets, daily range): BP systolic 117–139; BP diastolic 52–71; PULSE 76–109; RESP 17–20; TEMP 97.8; O2SAT 94–100
[~2024-09-18] VITALS: Ht 167.6 cm; Wt 95.5 kg
[~2024-09-18 05:50] MED LIST changes: +CEFD300C2 PO; +EMPA1TAB PO; +FURO1TAB31 PO; +POTA-215 PO
--- NOTE | 2024-09-18 06:20 | ED.PDOC ---
History of Present Illness HPI Comments 89-year-old female with PMHx HTN, CHF, CVA, HLD brought in by EMS presents with a chief complaint of SOB x onset last night, worsening this morning. Patient mentions that she was feeling increasingly SOB while at home last night. Patient was Tachypneic per EMS and they placed her on a O2 condenser. Patient also complained of chest pain that was localized substernally, describes as pressure, and rated her pain a 9/10. Patient received NTG and ASA by EMS and the chest pain decreased to a 4/10. No other symptoms or modifying factors present at this time. Chief Complaint: Shortness of Breath Time Seen by MD: 06:11 Primary Care Provider: UNKNOWN Reviewed Notes: Medications, Allergies Allergies: Coded Allergies: NO KNOWN ALLERGIES (Unverified , 05/16/24) Home Meds Active Scripts Cefdinir (Cefdinir) 300 Mg Cap, 1 CAP PO BID for 5 Days, #10 CAP Prov:NICHOLAS BAILEY MD 08/09/24 Empagliflozin (Jardiance) 10 Mg Tab, 10 MG PO DAILY for 30 Days, #30 TAB Prov:NICHOLAS BAILEY MD 08/09/24 Potassium Chloride (Klor-Con M10) 10 Meq Tab, 1 TAB PO DAILY, #30 TAB 5 Refills Prov:NICHOLAS BAILEY MD 08/09/24 Furosemide (Lasix) 40 Mg Tab, 40 MG PO DAILY, #30 TAB Prov:NICHOLAS BAILEY MD 08/09/24 Aspirin (Aspirin Low Dose) 81 Mg Tab, 81 MG PO DAILY, #60 TAB Prov:NICHOLAS BAILEY MD 05/19/24 Reported Medications Lovastatin (Lovastatin) 40 Mg Tab, 1 TAB PO DAILY, #30 TAB 5 Refills 05/17/24 Ropinirole Hydrochloride (Ropinirole Hcl) 1 Mg Tab, 1 MG PO, TAB 05/17/24 Carvedilol (Carvedilol) 12.5 Mg Tab, 12.5 MG PO Q12HR for 30 Days, MG 05/17/24 Amlodipine Besylate (Amlodipine Besylate) 5 Mg Tab, 10 MG PO DAILY for 30 Days, MG 05/17/24 Levothyroxine Sodium (Levothyroxine Sodium) 100 Mcg Tab, 100 MCG PO QAM for 30 Days, MCG 05/17/24 Clopidogrel Bisulfate (Plavix) 75 Mg Tab, 1 TAB PO DAILY, #90 TAB 1 Refill 05/17/24 Information Source: Patient, Emergency Med Personnel Mode of Arrival: EMS Severity: Moderate Timing: Hours Duration: Since onset Prehospital treatment: ASA, Medical I D Sales, NTG, Oxygen Past Medical History PAST MEDICAL HISTORY: CHF, CVA, High Lipids, HTN, Thyroid Surgical History: Denies all surgeries PLANT ASSIGNER History: Denies all PLANT ASSIGNER Hx Family History Family History: Reviewed,noncontributory to illness, Unknown Social History Smoker: Non-Smoker Alcohol: Denies ETOH Use Drugs: Denies Drug Use Lives In: Home Constitutional: denies: chills, diaphoresis, fatigue, fever, malaise, sweats, weakness, others EENTM: denies: blurred vision, double vision, ear bleeding, ear discharge, ear drainage, ear pain, ear ringing, eye pain, eye redness, hearing loss, mouth pain, mouth swelling, nasal discharge, nose bleeding, nose congestion, nose pain, photophobia, tearing, throat pain, throat swelling, voice changes, others Respiratory: reports: shortness of breath; denies: cough, hemoptysis, orthopnea, SOB at rest, SOB with excertion, stridor, wheezing, others Cardiovascular: reports: chest pain; denies: dizzy spells, diaphoresis, Dyspnea on exertion, edema, irregular heart beat, left arm pain, lightheadedness, palpitations, PND, syncope, others Gastrointestinal: denies: abdomen distended, abdominal pain, blood streaked bowels, constipated, diarrhea, dysphagia, difficulty swallowing, hematemesis, melena, nausea, poor appetite, poor fluid intake, rectal bleeding, rectal pain, vomiting, others Genitourinary: denies: abnormal vagina bleeding, burning, dyspareunia, dysuria, flank pain, frequency, hematuria, incontinence, pain, , vagina discharge, urgency, others Neurological: denies: dizziness, fainting, headache, left sided numbness, left sided weakness, numbness, paresthesia, pre-existing deficit, right sided numbn ess, right sided weakness, seizure, speech problems, tingling, tremors, weakness, others Musculoskeletal: denies: back pain, gout, joint pain, joint swelling, muscle pain, muscle stiffness, neck pain, others Integumetry: denies: bruises, change in color, change in hair/nails, dryness, laceration, lesions, lumps, rash, wounds, others Allergic/Immunocompromised: denies: Difficulty Healing, Frequent Infections, Hives, Itching, others Hematologic/Lymphatic: denies: anemia, blood clots, easy bleeding, easy bruising, swollen glands, others Endocrine: denies: excessive hunger, excessive sweating, excessive thirst, excessive urination, flushing, intolerance to cold, intolerance to heat, unexplained weight gain, unexplained weight loss, others Psychiatric: denies: anxiety, bipolar disorder, depression, hopeless, panic disorder, schizophrenia, sleepless, suicidal, others All Other Systems: Reviewed and Negative Physical Exam General Appearance: No Apparent Distress, Normal HEENT: Normal ENT Inspection, Pharynx Normal, TMs Normal Neck: Full Range of Motion, Non-Tender, Normal, Normal Inspection Respiratory: Chest Non-Tender, Lungs Clear, No Accessory Muscle Use, Normal Breath Sounds, Other (TACHYPNIC, SOB ) Cardiovascular: No Edema, No JVD, No Murmur, No Gallop, Normal Peripheral Pulses, Regular Rate/Rhythm Breast Exam: Deferred Gastrointestinal: No Organomegaly, Non Tender, No Pulsatile Mass, Normal Bowel Sounds, Soft Genitalia: Deferred Pelvic: Deferred Rectal: Deferred Extremities: No calf tenderness, Normal capillary refill, Normal inspection, Normal range of motion, Non-tender, No pedal edema Musculoskeletal : Apperance: Normal Neurologic: Alert, software configuration analyst II-XII nml as Tested, No Motor Deficits, Normal Affect, Normal Mood, No Sensory Deficits Cerebellar Function: Normal Reflexes: Normal Skin: Dry, Normal Color, Warm Lymphatic: No Adenopathy Was a procedure done? Was a procedure done?: No Differential Dx Considerations may include: ACS, CVA, electrolyte abnormality, infectious etiology, anemia X-Ray, Labs, Meds, VS Vital Signs Date Time Temp Pulse Resp B/P (MAP) Pulse Ox O2 Delivery O2 Flow Rate FiO2 09/18/24 09:07 76 20 95 Nasal Cannula* 3 32 09/18/24 08:00 82 09/18/24 08:00 98.7 82 20 130/80 (97) 97 98.7 09/18/24 06:50 84 17 96 Nasal Cannula* 3 32 09/18/24 06:49 80 09/18/24 06:48 98.4 84 17 141/64 (89) 97 98.4 09/18/24 05:53 87 09/18/24 05:50 94 Nasal Cannula* 3 32 09/18/24 05:50 98.9 93 20 129/64 (85) 94 98.9 Lab Test 09/18/24 09:21 09/18/24 07:21 09/18/24 06:22 Range/Units Troponin I High Sensitivity 14 13 13 </=34 ng/L White Blood Count 7.7 4.4-10.8 10^3/uL Red Blood Count 5.24 H 4.0-5.20 10^6/uL Hemoglobin 11.3 L 12.2-16.2 g/dL Hematocrit 36.7 36.0-46.0 % Mean Corpuscular Volume 70.0 L 80.0-100.0 fL Mean Corpuscular Hemoglobin 21.5 L 28.0-32.0 pg Mean Corpuscular Hemoglobin Concent 30.7 L 32.0-36.0 g/dL Red Cell Distribution Width 20.5 H 11.8-14.3 % Platelet Count 185 140-450 10^3/uL Mean Platelet Volume 9.1 6.9-10.8 fL Neutrophils (%) (Auto) 84.1 H 37.0-80.0 % Lymphocytes (%) (Auto) 8.3 L 10.0-50.0 % Monocytes (%) (Auto) 7.2 0.0-12.0 % Eosinophils (%) (Auto) 0.2 0.0-7.0 % Basophils (%) (Auto) 0.2 0.0-2.0 % Neutrophils # (Auto) 6.4 1.6-8.6 10 ^3/uL Lymphocytes # (Auto) 0.6 0.4-5.4 10 ^3/uL Monocytes # (Auto) 0.6 0-1.3 10 ^3/uL Eosinophils # (Auto) 0 0-0.8 10 ^3/uL Basophils # (Auto) 0 0-0.2 10 ^3/uL Nucleated Red Blood Cells 0.0 % Sodium Level 141 136-145 mmol/L Potassium Level 4.5 3.5-5.1 mmol/L Chloride Level 106 98-107 mmol/L Carbon Dioxide Level 27 20-31 mmol/L Anion Gap 8 5-15 Blood Urea Nitrogen 29 H 9-23 mg/dL Creatinine 1.16 H 0.550-1.02 mg/dL Glomerular Filtration Rate Calc 45 >90 mL/min BUN/Creatinine Ratio 25.0 H 10.0-20.0 Serum Glucose 115 H 74-106 mg/dL Calcium Level 9.4 8.7-10.4 mg/dL Time of 1ST Reevaluation: 06:41 Reevaluation 1ST: Unchanged Patient Education/Counseling: Diagnosis, Treatment Family Education/Counseling: No Family Present SEPSIS Sepsis Screen Physician Orders Electrocardigram (09/18/24 08:57) Chest Xray 1 View (09/18/24 06:05) Vital Signs Date Time Temp Pulse Resp B/P (MAP) Pulse Ox O2 Delivery O2 Flow Rate FiO2 09/18/24 09:07 76 20 95 Nasal Cannula* 3 32 09/18/24 08:00 82 09/18/24 08:00 98.7 82 20 130/80 (97) 97 98.7 09/18/24 06:50 84 17 96 Nasal Cannula* 3 32 09/18/24 06:49 80 09/18/24 06:48 98.4 84 17 141/64 (89) 97 98.4 09/18/24 05:53 87 09/18/24 05:50 94 Nasal Cannula* 3 32 09/18/24 05:50 98.9 93 20 129/64 (85) 94 98.9 Laboratory Tests Test 09/18/24 06:22 White Blood Count 7.7 10^3/uL (4.4-10.8) Departure 1 Departure Time of Disposition: 10:58 (Patient with a worsening shortness of breath. Patient likely with a volume overload. We will patient Lasix we will admit patient for further workup and expert consultation) Impression: Primary Impression: Shortness of breath Additional Impression: Generalized weakness Disposition: ADMITTED INPATIENT Admit to: Med Surg Condition: Serious Critical Care Note Critical Care Time?: No Stability Stability form required: No I personally scribed for FADY JOHNSTON MD ([email or web address]) on 09/18/24 at 06:20. Electronically submitted by Dejuan Rosales ([email or web address]). FADY JOHNSTON MD Sep 18, 2024 06:20
[2024-09-18 07:01] LABS: Nucleated Red Blood Cells % 0.0 %
--- NOTE | 2024-09-18 07:02 | DVH ---
CLINICAL INFORMATION: Shortness of breath. TECHNIQUE: Single AP portable chest radiograph was obtained. COMPARISON: XY CHEST XRAY 1 VIEW on DOS: 08/08/24, XY CHEST PORTABLE on DOS: 08/07/24, XY CHEST PORTABLE on DOS: 08/06/24 FINDINGS: Lungs: Portions of the left chest wall and costophrenic angle are excluded from the [id number] of the exam. There is a small left pleural effusion with overlying atelectasis. Mild atelectasis in the right lung base. Cardiac: Moderate cardiomegaly. Pulmonary vasculature: Prominence of the pulmonary vasculature. Mediastinum/cony: Moderate atherosclerotic calcification of the aortic arch. Bones: No acute osseous abnormality identified. Other: No other significant findings. IMPRESSION: 1. Cardiomegaly and prominence of the pulmonary vasculature suggesting pulmonary vascular congestion in the appropriate clinical setting. 2. Small left pleural effusion with overlying atelectasis.
[2024-09-18 07:03] LABS: Hematocrit 36.7 % (36.0-46.0); Hemoglobin 11.3 g/dL (12.2-16.2); Mean Corpuscular Hemoglobin 21.5 pg (28.0-32.0); Mean Corpuscular Volume 70.0 fL (80.0-100.0)
[2024-09-18 07:04] LABS: Chloride 106 mmol/L (98-107); Potassium 4.5 mmol/L (3.5-5.1); Sodium 141 mmol/L (136-145)
[2024-09-18 07:05] LABS: Anion Gap 8 (5-15); Calcium 9.4 mg/dL (8.7-10.4); Carbon Dioxide 27 mmol/L (20-31)
--- NOTE | 2024-09-18 07:08 | ECG ---
[facility] Test Date: 2024-09-18 Test Time: 05:53:53 Pat Name: ALYSIA GARCIA Department: ED Room: Gender: F Research Rn Spec: tami : 1935 Requested By: EMERGENCY EMERGENCY Order Number: [id number] Reading MD: Measurements Intervals [place] Rate: 87 P: 58 NV: 174 QRS: -7 QRSD: 88 T: 78 QT: 376 QTc: 453 Interpretive Statements Sinus rhythm LVH with secondary repolarization abnormality Please click the below link to view image of tracing.
--- NOTE | 2024-09-18 07:08 | ECG ---
[facility] Test Date: 2024-09-18 Test Time: 06:49:38 Pat Name: ALYSIA GARCIA Department: ED Room: Gender: F Entry Level Staff Accountant: IVAN : 1935 Requested By: EMERGENCY EMERGENCY Order Number: [id number] Reading MD: Measurements Intervals [place] Rate: 80 P: 69 UT: 204 QRS: 2 QRSD: 93 T: 111 QT: 428 QTc: 494 Interpretive Statements Sinus rhythm LVH with secondary repolarization abnormality Borderline prolonged QT interval Please click the below link to view image of tracing.
[2024-09-18 07:10] LABS: BUN/Creatinine Ratio 25.0 (10.0-20.0)
[2024-09-18 07:12] LABS: Blood Urea Nitrogen 29 mg/dL (9-23); Glucose 115 mg/dL (74-106)
[2024-09-18] MEDS: ONDANSETRON HCL 4 MG/2 ML VIAL IV ONE (11:47)
[2024-09-18] MEDS: MORPHINE SULFATE 4 MG/ML SYR/VIAL IV ONE (11:49)
[2024-09-18] MEDS: FUROSEMIDE 40 MG/4 ML VIAL IV ONE (13:12)
[2024-09-18] MEDS ORDERED: NITROGLYCERIN 0.4 MG SL TAB SL PRN (14:45)
[2024-09-18] MEDS ORDERED: MORPHINE SULFATE INJ 2 MG/ml SYRG IV PRN (14:45)
[2024-09-18] MEDS ORDERED: ALBUTEROL SULF 2.5 MG/0.5ML(0.5%) NEB SOLN NEB PRN (14:45)
[2024-09-18] MEDS ORDERED: CARV12.544 PO (17:14)
[2024-09-18] MEDS ORDERED: LORA-1123 PO (17:14)
--- NOTE | 2024-09-18 17:46 | DVHHP2 ---
History of Present Illness Reason for Visit: Shortness for breath History of Present Illness 89-year-old female presents for evaluation of shortness for breath. Patient endorses a one day history of worsening shortness for breath with associated substernal chest tightness. No lower extremity edema noted or reported. Denies cough or fever. No other acute complaints. Past Medical History Dyslipidemia, hypertension, thyroid, CVA, CHF Past Surgical History Denies Family History Noncontributory Smoke: No ALCOHOL: none Drugs: None Lives: with Family Review of Systems Review of Systems Review of systems are currently negative otherwise addressed in HPI. Allergies: Coded Allergies: NO KNOWN ALLERGIES (Unverified , 05/16/24) Medications Current Medications Medications Dose Ordered Sig/Shanna Route Start Time Stop Time Status Last Admin Dose Admin Amlodipine Besylate 5 mg DAILY PO 09/19/24 10:00 Aspirin 81 mg DAILY PO 09/19/24 10:00 Carvedilol 12.5 mg Q12HR PO 09/18/24 22:00 Clopidogrel Bisulfate 75 mg DAILY PO 09/19/24 10:00 Empaglifozin 10 mg DAILY PO 09/19/24 10:00 Furosemide 20 mg DAILY IV 09/19/24 10:00 Levothyroxine Sodium 100 mcg QAM@0600 PO 09/19/24 06:00 Atorvastatin Calcium 40 mg HS PO 09/18/24 22:00 Ondansetron HCl 4 mg Q4HP PRN IV 09/18/24 14:45 Acetaminophen 650 mg Q6HP PRN PO 09/18/24 14:45 Nitroglycerin 0.4 mg Q5MINP PRN SL 09/18/24 14:45 Morphine Sulfate 2 mg Q30M PRN IV 09/18/24 14:45 Albuterol 2.5 mg Q6HPRN PRN NEB 09/18/24 14:45 UNV Albuterol 2.5 mg Q6HPRN PRN NEB 09/18/24 15:00 Exam Vital Signs Vital Signs Date Time Temp Pulse Resp B/P (MAP) Pulse Ox O2 Delivery O2 Flow Rate FiO2 09/18/24 16:10 97.8 100 19 117/69 (85) 97 97.8 09/18/24 16:10 Nasal Cannula* 3 32 Exam Gen: 89-year-old female in mild distress Skin: Warm, dry, normal color and texture, no rash. HEENT: Normocephalic atraumatic, mucous membranes moist and pink. Neck: Cervical and supraclavicular nodes normal without enlargement, trachea is midline, thyroid gland is normal without masses. Pulmonary: Clear to auscultation and percussion bilaterally. Cardiac: Regular rate and rhythm. No murmur Abdomen: Soft, nontender, nondistended, bowel sounds present all 4 quadrants, no guarding, no rigidity, no organomegaly. Extremities: No cyanosis, clubbing, no edema Neuro: Cranial nerves II through XII grossly intact, normal affect and speech, no focal motor deficits. Labs/Xrays ORDERING PHYSICIAN: CHANTELLE LITTLE PROCEDURE(s): ECIDC - ECHO 2D MODE CARDIAC DOP REASON: hx of aortic stenosis ORDER NUMBER(s): [id number], ACCESSION NUMBER(s): [id number] APPROVED REPORT EXAM: LIMITED Two-dimensional and M-mode echocardiogram with Doppler and color Doppler. Blood Pressure: 145/69 mmHg INDICATION hx of Aortic Stenosis RISK FACTORS Height: 5' 4", Weight: 144 DIMENSIONS LVDd 5.3 (3.8-5.7cm) LA (2D) 4.7 (1.9-4.0cm) Aortic Root (2.0- 3.7cm) LVDs 3.5 (2.5-4.0cm) LA (MM) (1.9-4.0cm) Aortic Cusp Exc (1.5- 2.0cm) EF (%) 62.0 (55-70%) Rt. Atrium 4.2 (1.9-4.0cm) Asc. Aorta cm IVSd 1.0 (0.7-1.1cm) RV (D) (1.8-2.4cm) PWd 1.0 (0.7-1.1cm) Mitral Valve Mitral Mitral Stenosis E wave 1.10m/s MV Mean GR. mmHg A wave 0.50m/s MV Peak GR. mmHg E/A ratio 2.2 2D MVA cm2 Aortic Valve Aortic Valve Aortic Stenosis V1 0.80m/s AO Mean GR. 40mmHg V2 4.20m/s AO Peak GR. 70mmHg LVOT Diameter 2.1 (1.8-2.4cm) Doppler ESTUARDO 0.66cm2 AI P /2 Time 259.62ms Conclusion lvef 40-45% RV enlarged biatrial enlargement severe aortic regurg severe aortic stenosis, mean gradient of 40 mmgh severe mac noted SIGNED BY: ARTHUR ROSENTHAL MD SIGNED DATE/TIME: 08/07/24 9446 ORDERING PHYSICIAN: JAZZMINE BURR MD PROCEDURE(s): CXR1 - CHEST XRAY 1 VIEW REASON: sob ORDER NUMBER(s): [id number], ACCESSION NUMBER(s): [id number] CLINICAL INFORMATION: Shortness of breath. TECHNIQUE: Single AP portable chest radiograph was obtained. COMPARISON: XY CHEST XRAY 1 VIEW on DOS: 08/08/24, XY CHEST PORTABLE on DOS: 08/07, XY CHEST PORTABLE on DOS: 08/06/24 FINDINGS: Lungs: Portions of the left chest wall and costophrenic angle are excluded from the [id number] of the exam. There is a small left pleural effusion with overlying atelectasis. Mild atelectasis in the right lung base. Cardiac: Moderate cardiomegaly. Pulmonary vasculature: Prominence of the pulmonary vasculature. Mediastinum/cony: Moderate atherosclerotic calcification of the aortic arch. Bones: No acute osseous abnormality identified. Other: No other significant findings. IMPRESSION: 1. Cardiomegaly and prominence of the pulmonary vasculature suggesting pulmonary vascular congestion in the appropriate clinical setting. 2. Small left pleural effusion with overlying atelectasis. Labs Test 09/18/24 09:21 09/18/24 06:22 Range/Units Troponin I High Sensitivity 14 </=34 ng/L White Blood Count 7.7 4.4-10.8 10^3/uL Red Blood Count 5.24 H 4.0-5.20 10^6/uL Hemoglobin 11.3 L 12.2-16.2 g/dL Hematocrit 36.7 36.0-46.0 % Mean Corpuscular Volume 70.0 L 80.0-100.0 fL Mean Corpuscular Hemoglobin 21.5 L 28.0-32.0 pg Mean Corpuscular Hemoglobin Concent 30.7 L 32.0-36.0 g/dL Red Cell Distribution Width 20.5 H 11.8-14.3 % Platelet Count 185 140-450 10^3/uL Mean Platelet Volume 9.1 6.9-10.8 fL Neutrophils (%) (Auto) 84.1 H 37.0-80.0 % Lymphocytes (%) (Auto) 8.3 L 10.0-50.0 % Monocytes (%) (Auto) 7.2 0.0-12.0 % Eosinophils (%) (Auto) 0.2 0.0-7.0 % Basophils (%) (Auto) 0.2 0.0-2.0 % Neutrophils # (Auto) 6.4 1.6-8.6 10 ^3/uL Lymphocytes # (Auto) 0.6 0.4-5.4 10 ^3/uL Monocytes # (Auto) 0.6 0-1.3 10 ^3/uL Eosinophils # (Auto) 0 0-0.8 10 ^3/uL Basophils # (Auto) 0 0-0.2 10 ^3/uL Nucleated Red Blood Cells 0.0 % Sodium Level 141 136-145 mmol/L Potassium Level 4.5 3.5-5.1 mmol/L Chloride Level 106 98-107 mmol/L Carbon Dioxide Level 27 20-31 mmol/L Anion Gap 8 5-15 Blood Urea Nitrogen 29 H 9-23 mg/dL Creatinine 1.16 H 0.550-1.02 mg/dL Glomerular Filtration Rate Calc 45 >90 mL/min BUN/Creatinine Ratio 25.0 H 10.0-20.0 Serum Glucose 115 H 74-106 mg/dL Calcium Level 9.4 8.7-10.4 mg/dL SEPSIS Sepsis Screen Date sepsis recognized/suspect: Sep 18, 2024 Time Sepsis recognized/suspect: 729 Recent Procedure: No On Antibiotic Therapy: No Respiratory Rate >20: No Heart Rate >90: No Temp<36 C (96.8 F) or >38.3 C: No SBP <90 or MAP <65 mmHG: No New Acute Mental Status Change: No Is the patient on CPAP, BIPAP,: No Physician Orders Amlodipine Tablet (Norvasc Tablet) (09/19/24 10:00) Aspirin Tablet (09/19/24 10:00) Carvedilol Tablet (Coreg Tablet) (09/18/24 22:00) Clopidogrel Bisulfate (Plavix) (09/19/24 10:00) Empagliflozin (Jardiance) (09/19/24 10:00) Furosemide Injection (Lasix Injection) (09/19/24 10:00) Levothyroxine Tablet (Synthroid Tablet) (09/19/24 06:00) Atorvastatin (Lipitor) (09/18/24 22:00) Basic Metabolic Panel (09/19/24 04:00) Admit (09/18/24 14:41) Ondansetron Hcl (Zofran) (09/18/24 14:45) Cardiac Diet-2gna,Lofat,Lochol (09/18/24 Dinner) Condition: Fair (09/18/24 14:41) Acetaminophen Tablet (Tylenol Tablet) (09/18/24 14:45) Bedrest With Bathroom Privileg (09/18/24 14:41) Nitroglycerin Sublingual (Ntrostat Subli (09/18/24 14:45) Morphine Sulfate Injection (09/18/24 14:45) Stat Ekg For Chest Pain (09/18/24 14:41) Notify Md Of Changes From Base (09/18/24 14:41) Hand Crown Pouncer For 24 Hours (09/18/24 14:41) Emergency Dysrhythmia Protocol (09/18/24 14:41) Rhythm Strips Once Every Shift (09/18/24 14:41) Oxygen By Nasal Cannula (09/18/24 14:41) Albuterol Medneb (Ventolin Medneb) (09/18/24 15:00) * Wound Consult (09/18/24 ) Mrsa Screen (09/18/24 17:08) Vital Signs Date Time Temp Pulse Resp B/P (MAP) Pulse Ox O2 Delivery O2 Flow Rate FiO2 09/18/24 16:10 97.8 100 19 117/69 (85) 97 97.8 09/18/24 16:10 Nasal Cannula* 3 32 09/18/24 15:02 84 19 136/52 94 3.0 09/18/24 14:00 73 20 136/52 (80) 96 09/18/24 13:12 136/52 09/18/24 12:20 78 19 139/40 7/17/25 12:00 98.3 78 19 139/40 (73) 96 98.3 09/18/24 12:00 75 09/18/24 11:49 72 20 139/40 09/18/24 10:00 75 18 135/54 (81) 96 Laboratory Tests Test 09/18/24 06:22 White Blood Count 7.7 10^3/uL (4.4-10.8) Medications Medications Dose Ordered Sig/Shanna Route Start Time Stop Time Status Last Admin Dose Admin Furosemide 20 mg ONCE ONCE IV 09/18/24 11:00 09/18/24 11:22 DC 09/18/24 13:12 20 MG Morphine Sulfate 4 mg ONCE ONCE IV 09/18/24 11:15 09/18/24 11:22 DC 09/18/24 11:49 4 MG Ondansetron HCl 4 mg ONCE ONCE IV 09/18/24 11:15 09/18/24 11:22 DC 09/18/24 11:47 4 MG Assessment/Plan Assessment/Plan Assessment Acute on chronic respiratory failure CHF exacerbation Atrial fibrillation Hypertension Plan Admit the patient to telemetry to the hospitalist Cardiology consultation Resume home medications Continue treatment per orders. Plan discussed with: Patient My Orders Orders - RUY GASTON Procedure Category Date Status Time Amlodipine Tablet PHA 09/19/24 In Process (Norvasc Tablet) 10:00 Aspirin Tablet PHA 09/19/24 In Process 10:00 Carvedilol Tablet PHA 09/18/24 In Process (Coreg Tablet) 22:00 Clopidogrel Bisulfate PHA 09/19/24 In Process (Plavix) 10:00 Empagliflozin PHA 09/19/24 In Process (Jardiance) 10:00 Furosemide Injection PHA 09/19/24 In Process (Lasix Injection) 10:00 Levothyroxine Tablet PHA 09/19/24 In Process (Synthroid Tablet) 06:00 Atorvastatin (Lipitor) PHA 09/18/24 In Process 22:00 Basic Metabolic Panel LAB 09/19/24 Verified 04:00 Admit ADMIT 09/18/24 Transmitted 14:41 Ondansetron Hcl PHA 09/18/24 In Process (Zofran) 14:45 Cardiac DIET 09/18/24 Transmitted Diet-2gna,Lofat,Lochol Dinner Condition: Fair JAYDEN 09/18/24 In Process 14:41 Acetaminophen Tablet [facility] 09/18/24 In Process (Tylenol Tablet) 14:[address] [facility] 09/18/24 In Process Privileg 14:41 Nitroglycerin [facility] 09/18/24 In Process Sublingual (Ntrostat 14:45 Morphine Sulfate [facility] 09/18/24 In Process Injection 14:[address] Chest [facility] 09/18/24 In Process Pain 14:41 Notify Md Of Changes [facility] 09/18/24 In Process From Base 14:[address]cer For [facility] 09/18/24 In Process 24 Hours 14:[address] [facility] 09/18/24 In Process Protocol 14:[address] [facility] 09/18/24 In Process Every Shift 14:41 Oxygen By Nasal RT 09/18/24 Transmitted Cannula 14:41 Albuterol Medneb [facility] 09/18/24 In Process (Ventolin Medneb) 15:00 Date of Service: Sep 18, 2024 Billing Provider: RUY GASTON Common Visit Codes: [id number] INP/OBS CARE (HIGH) RUY GASTON Sep 18, 2024 17:45
[2024-09-18] MEDS: ACETAMINOPHEN 325 MG TAB PO PRN (21:46)
[2024-09-18] MEDS: APIXABAN 2.5 MG TAB PO SCH (21:46)
[2024-09-18] MEDS: ATORVASTATIN 20 MG TAB PO SCH (21:46)
[2024-09-18] MEDS: CARVEDILOL 12.5 MG TAB PO SCH (21:46)
[2024-09-19] VITALS (10 sets, daily range): BP systolic 97–150; BP diastolic 60–75; PULSE 69–108; RESP 16–19; TEMP 97.6–98.4; O2SAT 95–99
[2024-09-19] MEDS: LEVOTHYROXINE SODIUM 100 MCG TAB PO SCH (05:20)
[2024-09-19 07:43] LABS: Potassium 4.1 mmol/L (3.5-5.1); Sodium 141 mmol/L (136-145)
[2024-09-19 07:44] LABS: Anion Gap 7 (5-15); Calcium 9.4 mg/dL (8.7-10.4); Carbon Dioxide 27 mmol/L (20-31)
[2024-09-19 07:49] LABS: BUN/Creatinine Ratio 26.2 (10.0-20.0); Glucose 105 mg/dL (74-106)
[2024-09-19 07:51] LABS: Blood Urea Nitrogen 32 mg/dL (9-23); Chloride 107 mmol/L (98-107)
[2024-09-19] MEDS: CLOPIDOGREL BISULFATE 75 MG TAB PO SCH (09:30)
[2024-09-19] MEDS: EMPAGLIFLOZIN 10 MG TAB PO SCH (09:30)
[2024-09-19] MEDS: FUROSEMIDE 20 MG/2 ML VIAL IV SCH (09:31)
[2024-09-19 10:17] LABS: Alanine Aminotransferase 10.0 U/L (7-40); Albumin 3.9 g/dL (3.2-4.8); Alkaline Phosphatase 56.0 U/L (46-116); Bilirubin, Direct 0.1 mg/dL (<0.3); Total Protein 6.4 g/dL (5.7-8.2)
[2024-09-19 10:18] LABS: Bilirubin, Total 0.3 mg/dL (0.2-1.0)
--- NOTE | 2024-09-19 10:58 | DVHPNRES ---
Progress Note Date Seen: Sep 19, 2024 Resident Creating Document: JOSE EDUARDO TAN RESIDENT Medical Necessity Reason Pt with a Central, PICC or Fol: No Subjective Review of Systems An 89 year Old female presents to the ED with history of chest pain, rating 8/10, tightness, radiates to neck. The patient complains of shortness of breath and PND associated with chest pain described as substernal, pressure-like, and nonradiating. She was medicated with NTG SL and ASA EN route to the hospital with some relief of symptoms. The patient had a recent admission to this facility stating she was sent home on hospice care. During previous admission she was advised to follow up as an outpatient setting for possible aortic valve replacement but given hospice status the patient failed to do so. She also reports having shortness of breath which is brought on by lying down, sitting up interested shortness of breath. She denies any fever, abdominal pain, nausea, vomiting, swelling or any other complaints at this time. Past Medical History: Dyslipidemia, hypertension, thyroid, CVA, CHF. pleural fluid aspiration history 1 month ago at [facility]. Past Surgical History: Left-sided thoracentesis, Partial colectomy with colostomy in 2020 with reversal in 2022 , , Appendectomy Tonsillectomy Family History: Patient reports no known family medical history. Social History: Patient has a five pack-year history, quit smoking approximately 35 years ago. Denies any illicit drug use.Denies any alcohol use. Allergies: No known allergies Patient seen and examined at the bedside. Overnight events reviewed, patient reported improvement in her chest pain and shortness of breath after admission. Rest of ROS is negative Patient reports: Feels better Objective vital signs Vital Sign Date Time Temp Pulse Resp B/P (MAP) Pulse Ox O2 Delivery O2 Flow Rate FiO2 09/19/24 09:31 126/67 09/19/24 09:30 110 09/19/24 09:00 97.6 19 98 97.6 09/19/24 07:30 Nasal Cannula* 3 32 Total Intake and Output 09/18/24 09/18/24 09/19/24 15:00 23:00 07:00 Intake Total 0 ml 400 ml Output Total 300 ml Balance 0 ml 100 ml medications Current Medications Medications Dose Ordered Sig/Shanna Route Start Time Stop Time Status Last Admin Dose Admin Amlodipine Besylate 5 mg DAILY PO 09/19/24 10:00 09/19/24 09:30 5 MG Aspirin 81 mg DAILY PO 09/19/24 10:00 09/19/24 09:31 81 MG Carvedilol 12.5 mg Q12HR PO 09/18/24 22:00 09/19/24 09:30 12.5 MG Clopidogrel Bisulfate 75 mg DAILY PO 09/19/24 10:00 09/19/24 09:30 75 MG Empaglifozin 10 mg DAILY PO 09/19/24 10:00 09/19/24 09:30 10 MG Furosemide 20 mg DAILY IV 09/19/24 10:00 09/19/24 09:31 20 MG Levothyroxine Sodium 100 mcg QAM@0600 PO 09/19/24 06:00 09/19/24 05:20 100 MCG Atorvastatin Calcium 40 mg HS PO 09/18/24 22:00 09/18/24 21:46 40 MG Ondansetron HCl 4 mg Q4HP PRN IV 09/18/24 14:45 Acetaminophen 650 mg Q6HP PRN PO 09/18/24 14:45 09/18/24 21:46 650 MG Nitroglycerin 0.4 mg Q5MINP PRN SL 09/18/24 14:45 Morphine Sulfate 2 mg Q30M PRN IV 09/18/24 14:45 Albuterol 2.5 mg Q6HPRN PRN NEB 09/18/24 14:45 UNV Albuterol 2.5 mg Q6HPRN PRN NEB 09/18/24 15:00 Apixaban 2.5 mg BID PO 09/18/24 22:00 09/19/24 09:30 2.5 MG Examination PT IS LYING ON BED GENERAL APPEARANCE: ALERT, ORIENTED X3, COOPERATIVE, MILD DISTRESS HEENT: ATRAUMATIC, MUCOUS MEMBRANES MOIST/PINK RESPIRATORY: CRACKLES OVER THE LEFT UPPER LUNG, NORMAL AIR MOVEMENT, NO ADDED SOUNDS CARDIOVASCULAR: REGULAR RATE, NORMAL S1, NORMAL S2, NO MURMURS ABDOMINAL/ : ACTIVE BOWEL SOUNDS, SOFT, NO DISTENTION, NO TENDERNESS EXTREMITIES: NO EDEMA, NORMAL PULSES, NO TENDERNESS/SWELLING SKIN: PEARLY PAPULE WITH ROLLED BORDERS AND CENTRAL ULCERATION ON THE RIGHT ALA OF THE NOSE. SKELETONIZED NODULE ON THE UPPER BACK, BLACKISH IN COLOR 2 CM IN DIAMETER NOTED. 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 HAS-BLED Score 2 points -discontinue Plavix and aspirin -Monitor ECG changes and notify -continue oxygen therapy as indicated MRSA positive Mupirocin topical b.i.d. started EVELIO due to VMN Monitoring labs Hypothyroidism Levothyroxine GI prophylaxis: Not indicated DVT prophylaxis: Eliquis Diet: Cardiac Goals of care discussed with the patient for 20 minutes: DNR/DNI Case discussed with Dr. Coffey , patient and RN Plan discussed with: Patient, Other (RN) Addendum Addendum Addendum I was physically present for the patterson portions of the service provided to patient by THE RESIDENT. I have reviewed the documentation, discussed the case with resident and agree with the resident's documentation except as noted. Also the patient's clinical case was discussed with the patient's nurse. This medical document was created using an electronic medical record system with computerized dictation system. Although this document has been carefully reviewed, there might still be some phonetic and typographical errors. These areas are purely typographical due to imperfections of the software programs, and do not reflect any compromise in the patient's medical care. Late signature. Date of Service: Sep 19, 2024 Billing Provider: GORDON COFFEY MD Common Visit Codes: [id number] INP/OBS CARE(HIGH) Secondary Visit Codes: [id number] CARE PLAN 30 MINUTES (20 minutes) JOSE EDUARDO TAN Sep 19, 2024 10:58 RILEY KAUR RESIDENT Sep 19, 2024 17:56 GORDON COFFEY MD Sep 20, 2024 12:55
--- NOTE | 2024-09-19 11:48 | DVHINCON2 ---
Date Seen: Sep 19, 2024 Referring Physician LORENZO Neves Reason for Consultation CHF and a-fib History of Present Illness This is a pleasant 89-year-old female who presented to the emergency room via EMS with a chief complaint of shortness of breath since 09/17/2024. The patient complains of shortness of breath and PND associated with chest pain described as substernal, pressure-like, and nonradiating. She was medicated with NTG SL and ASA EN route to the hospital with some relief of symptoms. The patient had a recent admission to this facility stating she was sent home on hospice care. During previous admission she was advised to follow up as an outpatient setting for possible aortic valve replacement but given hospice status the patient failed to do so. A 12 lead electrocardiogram revealed a sinus rhythm with diffuse nonspecific ST-T wave changes. Serial troponin levels are negative. During admission tele monitor reveals paroxysmal atrial fibrillation. Significant medical history includes unspecified cardiomyopathy with LVEF of 40-45%, severe aortic valve stenosis, severe aortic valve regurgitation, severe mitral annular calcification, hypertension, dyslipidemia, thyroid disease, history of cerebrovascular accident on Plavix and aspirin, and colitis. Past Medical History Past medical history reviewed. No other significant than mentioned above. Past Surgical History Left-sided thoracentesis Partial colectomy with colostomy in 2020 with reversal in 2022 Appendectomy Tonsillectomy Family History: Patient reports no known family medical history. Family History Family history reviewed. Social History Patient has a five pack-year history, quit smoking approximately 35 years ago. Denies any illicit drug use. Denies any alcohol use. Allergies: Coded Allergies: NO KNOWN ALLERGIES (Unverified , 05/16/24) Home Meds Active Scripts Cefdinir (Cefdinir) 300 Mg Cap, 1 CAP PO BID for 5 Days, #10 CAP Prov:NICHOLAS BAILEY MD 08/09/24 Empagliflozin (Jardiance) 10 Mg Tab, 10 MG PO DAILY for 30 Days, #30 TAB Prov:NICHOLAS BAILEY MD 08/09/24 Potassium Chloride (Klor-Con M10) 10 Meq Tab, 1 TAB PO DAILY, #30 TAB 5 Refills Prov:NICHOLAS BAILEY MD 08/09/24 Furosemide (Lasix) 40 Mg Tab, 40 MG PO DAILY, #30 TAB Prov:NICHOLAS BAILEY MD 08/09/24 Aspirin (Aspirin Low Dose) 81 Mg Tab, 81 MG PO DAILY, #60 TAB Prov:NICHOLAS BAILEY MD 05/19/24 Reported Medications Lorazepam (Lorazepam) 1 Mg Tab, 1 TAB PO TID, #90 TAB 09/18/24 Carvedilol (Carvedilol) 12.5 Mg Tab, 12.5 MG PO BID, TAB 09/18/24 Lovastatin (Lovastatin) 40 Mg Tab, 1 TAB PO DAILY, #30 TAB 5 Refills 05/17/24 Ropinirole Hydrochloride (Ropinirole Hcl) 1 Mg Tab, 1 MG PO, TAB 05/17/24 Carvedilol (Carvedilol) 12.5 Mg Tab, 12.5 MG PO Q12HR for 30 Days, MG 05/17/24 Amlodipine Besylate (Amlodipine Besylate) 5 Mg Tab, 10 MG PO DAILY for 30 Days, MG 05/17/24 Levothyroxine Sodium (Levothyroxine Sodium) 100 Mcg Tab, 100 MCG PO QAM for 30 Days, MCG 05/17/24 Clopidogrel Bisulfate (Plavix) 75 Mg Tab, 1 TAB PO DAILY, #90 TAB 1 Refill 05/17/24 Home Meds Home medications reviewed. Current Medications Current Medications Medications (Trade) Dose Ordered Sig/Shanna Route PRN Reason Start Time Stop Time Status Last Admin Amlodipine Besylate (Norvasc Tablet) 5 mg DAILY PO 09/19/24 10:00 09/19/24 09:30 Aspirin 81 mg DAILY PO 09/19/24 10:00 09/19/24 09:31 Carvedilol (Coreg Tablet) 12.5 mg Q12HR PO 09/18/24 22:00 09/19/24 09:30 Clopidogrel Bisulfate (Plavix) 75 mg DAILY PO 09/19/24 10:00 09/19/24 09:30 Empaglifozin (Jardiance) 10 mg DAILY PO 09/19/24 10:00 09/19/24 09:30 Furosemide (Lasix Injection) 20 mg DAILY IV 09/19/24 10:00 09/19/24 09:31 Levothyroxine Sodium (Synthroid Tablet) 100 mcg QAM@0600 PO 09/19/24 06:00 09/19/24 05:20 Atorvastatin Calcium (Lipitor) 40 mg HS PO 09/18/24 22:00 09/18/24 21:46 Ondansetron HCl (Zofran) 4 mg Q4HP PRN IV NAUSEA / VOMITING 09/18/24 14:45 Acetaminophen (Tylenol Tablet) 650 mg Q6HP PRN PO PAIN SCALE 1-3 OR TEMP>100.4 09/18/24 14:45 09/18/24 21:46 Nitroglycerin (Ntrostat Sublingual) 0.4 mg Q5MINP PRN SL FOR CHEST PAIN 09/18/24 14:45 Morphine Sulfate 2 mg Q30M PRN IV FOR CHEST PAIN 09/18/24 14:45 Albuterol (Ventolin Medneb) 2.5 mg Q6HPRN PRN NEB SHORTNESS OF BREATH 09/18/24 14:45 UNV Albuterol (Ventolin Medneb) 2.5 mg Q6HPRN PRN NEB SHORTNESS OF BREATH 09/18/24 15:00 Apixaban (Eliquis) 2.5 mg BID PO 09/18/24 22:00 09/19/24 09:30 Review of Systems Constitutional: No symptom reported Ears, Nose, & Throat: No symptom reported Eyes: No symptom reported Neurological: No symptoms reported Pulmonary/Respiratory: SOB Cardiovascular: Chest pain Gastrointestinal: No symptom reported Genitourinary: No symptom reported Musculoskeletal: No symptom reported Skin: No symptom reported Psychiatric: No symptom reported Endocrine: No symptom reported Hemotologic/Lymphatic: No symptom reported Vital Signs Vital Signs Date Time Temp Pulse Resp B/P (MAP) Pulse Ox O2 Delivery O2 Flow Rate FiO2 09/19/24 09:31 126/67 09/19/24 09:30 110 09/19/24 09:00 97.6 19 98 97.6 09/19/24 07:30 Nasal Cannula* 3 32 Physical Exam General Appearance: Cooperative. Elder. In no acute distress Head Exam: Normal inspection Neck Exam: Normal inspection. Non-tender. Normal alignment Pulmonary/Respiratory: Chest non-tender. Crackles to bilateral breath sounds. O2 via NC Cardiovascular/Chest: Regular rate and rhythm. S1, S2. Sinus rhythm with diffuse nonspecific ST-T wave changes. Systolic crescendo decrescendo murmur V/. Peripheral Pulses: 2+ Radial (R). 2+ Radial (L). 2+ Pedal (R). 2+ Pedal (L) Abdominal Exam: Normal bowel sounds. Soft. Nontender. Ankle Exam: Negative ankle edema Lower extremities: Negative lower extremity edema Neuro/Mental Status: A&O x3. Coherent Thoughts/Psych: Normal thought pattern. Appropriate mood and affect. Good judgement and insight Appearance: In no acute distress Skin Exam: Normal inspection. Normal color. Warm. Dry Labs/Diagnostic Data Labs Test 09/19/24 09:35 09/19/24 09:34 09/19/24 06:58 09/18/24 09:21 Range/Units B-Type Natriuretic Peptide 1389.85 0-100 pg/mL Total Bilirubin 0.3 0.2-1.0 mg/dL Direct Bilirubin 0.1 <0.3 mg/dL Aspartate Amino Transferase (AST) 18 13-40 U/L Alanine Aminotransferase (ALT) 10 7-40 U/L Alkaline Phosphatase 56 46-116 U/L Total Protein 6.4 5.7-8.2 g/dL Albumin 3.9 3.2-4.8 g/dL Sodium Level 141 136-145 mmol/L Potassium Level 4.1 3.5-5.1 mmol/L Chloride Level 107 98-107 mmol/L Carbon Dioxide Level 27 20-31 mmol/L Anion Gap 7 5-15 Blood Urea Nitrogen 32 H 9-23 mg/dL Creatinine 1.22 H 0.550-1.02 mg/dL Glomerular Filtration Rate Calc 42 >90 mL/min BUN/Creatinine Ratio 26.2 H 10.0-20.0 Serum Glucose 105 74-106 mg/dL Calcium Level 9.4 8.7-10.4 mg/dL Troponin I High Sensitivity 14 </=34 ng/L Test 09/18/24 06:22 Range/Units White Blood Count 7.7 4.4-10.8 10^3/uL Red Blood Count 5.24 H 4.0-5.20 10^6/uL Hemoglobin 11.3 L 12.2-16.2 g/dL Hematocrit 36.7 36.0-46.0 % Mean Corpuscular Volume 70.0 L 80.0-100.0 fL Mean Corpuscular Hemoglobin 21.5 L 28.0-32.0 pg Mean Corpuscular Hemoglobin Concent 30.7 L 32.0-36.0 g/dL Red Cell Distribution Width 20.5 H 11.8-14.3 % Platelet Count 185 140-450 10^3/uL Mean Platelet Volume 9.1 6.9-10.8 fL Neutrophils (%) (Auto) 84.1 H 37.0-80.0 % Lymphocytes (%) (Auto) 8.3 L 10.0-50.0 % Monocytes (%) (Auto) 7.2 0.0-12.0 % Eosinophils (%) (Auto) 0.2 0.0-7.0 % Basophils (%) (Auto) 0.2 0.0-2.0 % Neutrophils # (Auto) 6.4 1.6-8.6 10 ^3/uL Lymphocytes # (Auto) 0.6 0.4-5.4 10 ^3/uL Monocytes # (Auto) 0.6 0-1.3 10 ^3/uL Eosinophils # (Auto) 0 0-0.8 10 ^3/uL Basophils # (Auto) 0 0-0.2 10 ^3/uL Nucleated Red Blood Cells 0.0 % Thyroid Stimulating Hormone (TSH) 3.20 0.55-4.78 uIU/mL Assessment Acute on chronic decompensated HFmrEF, NYHA class III Paroxysmal atrial fibrillation, now NSR Aortic valve stenosis, severe degree Aortic valve regurgitation, severe degree Mitral annular calcification, severe degree Hypertension Dyslipidemia Acute hypoxic respiratory failure Hypothyroidism Hx of CVA (on Plavix and ASA) Hospice care status prior to admission Plan/Recommendation (Dr. Fry) * Transthoracic echocardiogram revealed LVEF 40-45% * Initiate GDMT for HFmrEF and uptitrate as tolerated * Preload and afterload reduction * Strict intake and output, daily weights, maintain fluid restriction * Initiate antiarrhythmic therapy, amiodarone BID * Initiate low-dose NOAC given advanced age * [id number] Score 7 points. HAS-BLED Score 2 points * Consider discontinuation of antiplatelet therapy unless advised by Neurology team * Replete electrolytes as necessary, K>4 and Mg>2 * Mg level pending * Monitor ECG changes and notify Given recent hospice care prior to admission, we recommend medical management at this time. Thank you for allowing us to care for this patient. Please call with any questions or concerns. Critical care time: 40 min. This medical document was created using an electronic medical record system with voice recognition software and computerized dictation system. Although this document has been carefully reviewed, there might still be some phonetic and typographical errors. Occasional wrong-word or ``sound-alike substitutions may have occurred due to the inherent limitations of voice recognition software. These areas are purely typographical due to imperfections of the software programs and do not reflect any compromise in the patient's medical care. Please read the chart carefully and recognize, using context, where these substitutions have occurred. Plan discussed with: Patient NYHA Physical activity limitations: Class3(Marked) ordinary Date of Service: Sep 19, 2024 Billing Provider: ANTWON CHRISTINE Cardiology Common Codes: 26586-YZJOLTON CARE 30-74 MIN ANTWON CHRISTINE Sep 19, 2024 11:48
[2024-09-19] MEDS: AMIODARONE HCL 200 MG TAB PO ONE (13:56)
[2024-09-19] MEDS: AMIODARONE HCL 200 MG TAB PO SCH (21:39)
[2024-09-19] MEDS: MUPIROCIN 2% OINT 15gm or 22gm TOP SCH (22:00)
[2024-09-19] MEDS ORDERED: MUPIROCIN 2% OINT 15gm or 22gm FOR MRSA NARES EACHNOSTRI SCH (22:00)
[2024-09-19] MEDS: ALBUTEROL SULF 2.5 MG/0.5ML(0.5%) NEB SOLN NEB PRN (22:09)
[2024-09-19] MEDS: ONDANSETRON HCL 4 MG/2 ML VIAL IV PRN (23:00)
--- NOTE | 2024-09-19 23:43 | DVHINCON2 ---
Date Seen: Sep 19, 2024 Referring Physician LORENZO Neves Reason for Consultation CHF and a-fib History of Present Illness This is a 89-year-old female with a past medical history of unspecified cardiomyopathy with LVEF of 40-45%, severe aortic valve stenosis, severe aortic valve regurgitation, severe mitral annular calcification, hypertension, dyslipidemia, thyroid disease, history of cerebrovascular accident on Plavix and aspirin, and colitis who presented to the ED by EMS with complaint of shortness of breath x 2 days. Patient complains of shortness of breath and PND associated with chest pain described as substernal, pressure-like, and nonradiating. Patient was medicated with NTG SL and ASA EN route to the hospital with some relief of symptoms. Patient had a recent admission to [facility] stating she was sent home on hospice care. During previous admission she was advised to follow up with cardiology in the outpatient setting for possible aortic valve replacement but given hospice status the patient failed to do so A 12 lead electrocardiogram revealed a sinus rhythm with diffuse nonspecific ST-T wave changes. Serial troponin levels are negative. During admission tele monitor reveals paroxysmal atrial fibrillation. Chest x-ray shows cardiomegaly and prominence of the pulmonary vasculature suggesting pulmonary vascular congestion in the appropriate clinical setting, small left pleural effusion with overlying atelectasis. Patient was admitted to the hospital. I am asked to consult on this patient. Past Medical History Past medical history reviewed. No other significant than mentioned above. Past Surgical History Left-sided thoracentesis Partial colectomy with colostomy in 2020 with reversal in 2022 Appendectomy Tonsillectomy Family History: Patient reports no known family medical history. Allergies: Coded Allergies: NO KNOWN ALLERGIES (Unverified , 05/16/24) Home Meds Active Scripts Cefdinir (Cefdinir) 300 Mg Cap, 1 CAP PO BID for 5 Days, #10 CAP Prov:NICHOLAS BAILEY MD 08/09/24 Empagliflozin (Jardiance) 10 Mg Tab, 10 MG PO DAILY for 30 Days, #30 TAB Prov:NICHOLAS BAILEY MD 08/09/24 Potassium Chloride (Klor-Con M10) 10 Meq Tab, 1 TAB PO DAILY, #30 TAB 5 Refills Prov:NICHOLAS BAILEY MD 08/09/24 Furosemide (Lasix) 40 Mg Tab, 40 MG PO DAILY, #30 TAB Prov:NICHOLAS BAILEY MD 08/09/24 Aspirin (Aspirin Low Dose) 81 Mg Tab, 81 MG PO DAILY, #60 TAB Prov:NICHOLAS BAILEY MD 05/19/24 Reported Medications Lorazepam (Lorazepam) 1 Mg Tab, 1 TAB PO TID, #90 TAB 09/18/24 Carvedilol (Carvedilol) 12.5 Mg Tab, 12.5 MG PO BID, TAB 09/18/24 Lovastatin (Lovastatin) 40 Mg Tab, 1 TAB PO DAILY, #30 TAB 5 Refills 05/17/24 Ropinirole Hydrochloride (Ropinirole Hcl) 1 Mg Tab, 1 MG PO, TAB 05/17/24 Carvedilol (Carvedilol) 12.5 Mg Tab, 12.5 MG PO Q12HR for 30 Days, MG 05/17/24 Amlodipine Besylate (Amlodipine Besylate) 5 Mg Tab, 10 MG PO DAILY for 30 Days, MG 05/17/24 Levothyroxine Sodium (Levothyroxine Sodium) 100 Mcg Tab, 100 MCG PO QAM for 30 Days, MCG 05/17/24 Clopidogrel Bisulfate (Plavix) 75 Mg Tab, 1 TAB PO DAILY, #90 TAB 1 Refill 05/17/24 Current Medications Current Medications Medications (Trade) Dose Ordered Sig/Shanna Route PRN Reason Start Time Stop Time Status Last Admin Amlodipine Besylate (Norvasc Tablet) 5 mg DAILY PO 09/19/24 10:00 09/19/24 11:47 DC 09/19/24 09:30 Aspirin 81 mg DAILY PO 09/19/24 10:00 09/19/24 11:47 DC 09/19/24 09:31 Carvedilol (Coreg Tablet) 12.5 mg Q12HR PO 09/18/24 22:00 09/19/24 09:30 Clopidogrel Bisulfate (Plavix) 75 mg DAILY PO 09/19/24 10:00 09/19/24 11:47 DC 09/19/24 09:30 Empaglifozin (Jardiance) 10 mg DAILY PO 09/19/24 10:00 09/19/24 09:30 Furosemide (Lasix Injection) 20 mg DAILY IV 09/19/24 10:00 09/19/24 11:47 DC 09/19/24 09:31 Levothyroxine Sodium (Synthroid Tablet) 100 mcg QAM@0600 PO 09/19/24 06:00 09/19/24 05:20 Atorvastatin Calcium (Lipitor) 40 mg HS PO 09/18/24 22:00 09/18/24 21:46 Ondansetron HCl (Zofran) 4 mg Q4HP PRN IV NAUSEA / VOMITING 09/18/24 14:45 Acetaminophen (Tylenol Tablet) 650 mg Q6HP PRN PO PAIN SCALE 1-3 OR TEMP>100.4 09/18/24 14:45 09/18/24 21:46 Nitroglycerin (Ntrostat Sublingual) 0.4 mg Q5MINP PRN SL FOR CHEST PAIN 09/18/24 14:45 Morphine Sulfate 2 mg Q30M PRN IV FOR CHEST PAIN 09/18/24 14:45 Albuterol (Ventolin Medneb) 2.5 mg Q6HPRN PRN NEB SHORTNESS OF BREATH 09/18/24 14:45 UNV Albuterol (Ventolin Medneb) 2.5 mg Q6HPRN PRN NEB SHORTNESS OF BREATH 09/18/24 15:00 Apixaban (Eliquis) 2.5 mg BID PO 09/18/24 22:00 09/19/24 09:30 Furosemide (Lasix Injection) 20 mg BIDD IV 09/19/24 18:00 Amiodarone HCl (Cordarone Tablet) 200 mg Q12HR PO 09/19/24 22:00 Review of Systems Constitutional: No symptom reported Ears, Nose, & Throat: No symptom reported Eyes: No symptom reported Neurological: No symptoms reported Pulmonary/Respiratory: SOB Cardiovascular: Chest pain Gastrointestinal: No symptom reported Genitourinary: No symptom reported Musculoskeletal: No symptom reported Skin: No symptom reported Psychiatric: No symptom reported Endocrine: No symptom reported Hemotologic/Lymphatic: No symptom reported Vital Signs Vital Signs Date Time Temp Pulse Resp B/P (MAP) Pulse Ox O2 Delivery O2 Flow Rate FiO2 09/19/24 09:31 126/67 09/19/24 09:30 110 09/19/24 09:00 97.6 19 98 97.6 09/19/24 07:30 Nasal Cannula* 3 32 Physical Exam GENERAL: Alert and oriented x 3. No acute distress. EYES: PERRL, EOMI. Anicteric. HENT: Moist mucous membranes. LUNGS: Decreased breath sounds. CARDIOVASCULAR: Irregular rate and rhythm. ABDOMEN: Soft, nontender and nondistended. EXTREMITIES: No edema. NEUROLOGIC: No focal neurological deficits. SKIN: Warm, dry. Labs/Diagnostic Data Labs Test 09/19/24 13:00 09/19/24 09:35 09/19/24 09:34 09/19/24 06:58 Range/Units B-Type Natriuretic Peptide 1389.85 0-100 pg/mL Total Bilirubin 0.3 0.2-1.0 mg/dL Direct Bilirubin 0.1 <0.3 mg/dL Aspartate Amino Transferase (AST) 18 13-40 U/L Alanine Aminotransferase (ALT) 10 7-40 U/L Alkaline Phosphatase 56 46-116 U/L Total Protein 6.4 5.7-8.2 g/dL Albumin 3.9 3.2-4.8 g/dL Sodium Level 141 136-145 mmol/L Potassium Level 4.1 3.5-5.1 mmol/L Chloride Level 107 98-107 mmol/L Carbon Dioxide Level 27 20-31 mmol/L Anion Gap 7 5-15 Blood Urea Nitrogen 32 H 9-23 mg/dL Creatinine 1.22 H 0.550-1.02 mg/dL Glomerular Filtration Rate Calc 42 >90 mL/min BUN/Creatinine Ratio 26.2 H 10.0-20.0 Serum Glucose 105 74-106 mg/dL Calcium Level 9.4 8.7-10.4 mg/dL Test 09/18/24 09:21 09/18/24 06:22 Range/Units Troponin I High Sensitivity 14 </=34 ng/L White Blood Count 7.7 4.4-10.8 10^3/uL Red Blood Count 5.24 H 4.0-5.20 10^6/uL Hemoglobin 11.3 L 12.2-16.2 g/dL Hematocrit 36.7 36.0-46.0 % Mean Corpuscular Volume 70.0 L 80.0-100.0 fL Mean Corpuscular Hemoglobin 21.5 L 28.0-32.0 pg Mean Corpuscular Hemoglobin Concent 30.7 L 32.0-36.0 g/dL Red Cell Distribution Width 20.5 H 11.8-14.3 % Platelet Count 185 140-450 10^3/uL Mean Platelet Volume 9.1 6.9-10.8 fL Neutrophils (%) (Auto) 84.1 H 37.0-80.0 % Lymphocytes (%) (Auto) 8.3 L 10.0-50.0 % Monocytes (%) (Auto) 7.2 0.0-12.0 % Eosinophils (%) (Auto) 0.2 0.0-7.0 % Basophils (%) (Auto) 0.2 0.0-2.0 % Neutrophils # (Auto) 6.4 1.6-8.6 10 ^3/uL Lymphocytes # (Auto) 0.6 0.4-5.4 10 ^3/uL Monocytes # (Auto) 0.6 0-1.3 10 ^3/uL Eosinophils # (Auto) 0 0-0.8 10 ^3/uL Basophils # (Auto) 0 0-0.2 10 ^3/uL Nucleated Red Blood Cells 0.0 % Thyroid Stimulating Hormone (TSH) 3.20 0.55-4.78 uIU/mL Microbiology Date/Time Source Procedure Growth Status 09/18/24 19:59 Nose MRSA Screen - Final Methicillin Resistant S.aureus Complete Assessment Acute on chronic decompensated HFmrEF, NYHA class III. Paroxysmal atrial fibrillation, now NSR. Aortic valve stenosis, severe degree. Aortic valve regurgitation, severe degree. Mitral annular calcification, severe degree. Hypertension. Dyslipidemia. Acute hypoxic respiratory failure. Hypothyroidism. History of CVA (on Plavix and ASA). Hospice care status prior to admission. Plan/Recommendation I agree with your ongoing assessment and care of plan. Patient has been seen by Kaylene Morgan NP on my behalf, her and I discussed the plan with the patient. Transthoracic echocardiogram revealed LVEF 40-45%. Initiate GDMT for HFmrEF and uptitrate as tolerated. Preload and afterload reduction. Strict intake and output, daily weights, maintain fluid restriction. Initiate antiarrhythmic therapy, amiodarone BID. Initiate low-dose NOAC given advanced age. [id number] Score 7 points. HAS-BLED Score 2 points. Consider discontinuation of antiplatelet therapy unless advised by Neurology team. Replete electrolytes as necessary, K>4 and Mg>2. Mg level pending. Monitor ECG changes and notify. Additional plan as per the hospital course. Plan discussed with: Patient NYHA Physical activity limitations: Class3(Marked) ordinary Date of Service: Sep 19, 2024 Billing Provider: DEIRDRE JOHNSON MD Cardiology Common Codes: [id number] INP/OBS CARE (High), [id number] CARE 30-74 MIN DEIRDRE JOHNSON MD Sep 19, 2024 13:32
[2024-09-20] VITALS (11 sets, daily range): BP systolic 116–151; BP diastolic 45–73; PULSE 62–71; RESP 15–17; TEMP 97.6–98.5; O2SAT 93–99
[2024-09-20] MEDS: FUROSEMIDE 20 MG/2 ML VIAL IV SCH (05:31)
[2024-09-20 07:51] LABS: Hematocrit 32.7 % (36.0-46.0); Hemoglobin 10.4 g/dL (12.2-16.2); Mean Corpuscular Hemoglobin 22.3 pg (28.0-32.0); Mean Corpuscular Volume 70.2 fL (80.0-100.0); Nucleated Red Blood Cells % 0.3 %
[2024-09-20 08:08] LABS: Anion Gap 9 (5-15); Carbon Dioxide 24 mmol/L (20-31); Chloride 105 mmol/L (98-107); Potassium 4.5 mmol/L (3.5-5.1); Sodium 138 mmol/L (136-145)
[2024-09-20 08:10] LABS: Calcium 9.6 mg/dL (8.7-10.4)
[2024-09-20 08:14] LABS: BUN/Creatinine Ratio 29.5 (10.0-20.0); Glucose 91 mg/dL (74-106)
[2024-09-20 08:15] LABS: Blood Urea Nitrogen 36 mg/dL (9-23)
--- NOTE | 2024-09-20 14:18 | DVHPNRES ---
Progress Note Date Seen: Sep 20, 2024 Resident Creating Document: JOSE EDUARDO TAN RESIDENT Medical Necessity Reason Pt with a Central, PICC or Fol: No Subjective Review of Systems An 89 year Old female presents to the ED with history of chest pain, rating 8/10, tightness, radiates to neck. The patient complains of shortness of breath and PND associated with chest pain described as substernal, pressure-like, and nonradiating. She was medicated with NTG SL and ASA EN route to the hospital with some relief of symptoms. The patient had a recent admission to this facility stating she was sent home on hospice care. During previous admission she was advised to follow up as an outpatient setting for possible aortic valve replacement but given hospice status the patient failed to do so. She also reports having shortness of breath which is brought on by lying down, sitting up interested shortness of breath. She denies any fever, abdominal pain, nausea, vomiting, swelling or any other complaints at this time. Past Medical History: Dyslipidemia, hypertension, thyroid, CVA, CHF. pleural fluid aspiration history 1 month ago at [facility]. Past Surgical History: Left-sided thoracentesis, Partial colectomy with colostomy in 2020 with reversal in 2022 , , Appendectomy Tonsillectomy Family History: Patient reports no known family medical history. Social History: Patient has a five pack-year history, quit smoking approximately 35 years ago. Denies any illicit drug use.Denies any alcohol use. Allergies: No known allergies 09/20 interval events: Patient seen and examined at the bedside. Overnight events reviewed, patient reported improvement in her chest pain and shortness of breath. Rest of ROS is negative Objective vital signs Vital Sign Date Time Temp Pulse Resp B/P (MAP) Pulse Ox O2 Delivery O2 Flow Rate FiO2 09/20/24 12:59 98.5 62 15 136/62 (86) 99 98.5 09/20/24 09:52 Nasal Cannula 4.0 09/20/24 09:52 36 Total Intake and Output 09/19/24 09/19/24 09/20/24 15:00 23:00 07:00 Intake Total 750 ml 700 ml Output Total 1000 ml 900 ml Balance -250 ml -200 ml medications Current Medications Medications Dose Ordered Sig/Shanna Route Start Time Stop Time Status Last Admin Dose Admin Carvedilol 12.5 mg Q12HR PO 09/18/24 22:00 09/20/24 09:08 12.5 MG Empaglifozin 10 mg DAILY PO 09/19/24 10:00 09/20/24 09:07 10 MG Levothyroxine Sodium 100 mcg QAM@0600 PO 09/19/24 06:00 09/20/24 05:33 100 MCG Atorvastatin Calcium 40 mg HS PO 09/18/24 22:00 09/19/24 21:38 40 MG Ondansetron HCl 4 mg Q4HP PRN IV 09/18/24 14:45 09/20/24 13:42 4 MG Acetaminophen 650 mg Q6HP PRN PO 09/18/24 14:45 09/18/24 21:46 650 MG Nitroglycerin 0.4 mg Q5MINP PRN SL 09/18/24 14:45 Morphine Sulfate 2 mg Q30M PRN IV 09/18/24 14:45 Albuterol 2.5 mg Q6HPRN PRN NEB 09/18/24 14:45 UNV Albuterol 2.5 mg Q6HPRN PRN NEB 09/18/24 15:00 09/19/24 22:09 2.5 MG Apixaban 2.5 mg BID PO 09/18/24 22:00 09/20/24 09:07 2.5 MG Furosemide 20 mg BIDD IV 09/19/24 18:00 Amiodarone HCl 200 mg Q12HR PO 09/19/24 22:00 09/20/24 09:07 200 MG Mupirocin 1 applic BID TOP 09/19/24 22:00 09/20/24 09:08 1 APPLIC Examination GENERAL APPEARANCE: ALERT, ORIENTED X3, COOPERATIVE, NO DISTRESS HEENT: ATRAUMATIC, MUCOUS MEMBRANES MOIST/PINK RESPIRATORY: CRACKLES OVER THE LEFT UPPER LUNG, NORMAL AIR MOVEMENT, NO ADDED SOUNDS CARDIOVASCULAR: IRREGULAR RATE, NORMAL S1, NORMAL S2, NO MURMURS ABDOMINAL/ : ACTIVE BOWEL SOUNDS, SOFT, NO DISTENTION, NO TENDERNESS EXTREMITIES: NO EDEMA, NORMAL PULSES, NO TENDERNESS/SWELLING SKIN: PEARLY PAPULE WITH ROLLED BORDERS AND CENTRAL ULCERATION ON THE RIGHT ALA OF THE NOSE. SKELETONIZED NODULE ON THE UPPER BACK, BLACKISH IN COLOR 2 CM IN DIAMETER NOTED. NEURO: NORMAL SPEECH, SENSORIMOTOR DEFICITS NONE PSYCH/MENTAL STATUS: MENTAL STATUS NL, MOOD NL NURSE WAS THERE COMMERCIAL DEVELOPMENT MANAGER DURING EXAMINATION laboratory and microbiology Laboratory Tests 09/20/24 05:09 Test 09/20/24 05:09 Range/Units Serum Glucose 91 74-106 mg/dL Microbiology Date/Time Source Procedure Growth Status 09/18/24 19:59 Nose MRSA Screen - Final Methicillin Resistant S.aureus Complete Labs and/or images reviewed: Labs reviewed by me, Image(s) reviewed by me Problem List/Assessment/Plan Problem List/Assessment/Plan Systolic heart failure with mildly reduced ejection fraction LVH Hypertension -Transthoracic echocardiogram revealed LVEF 40-45% -furosemide 20 mg -GDMT for HFmrEF and will uptitrate as tolerated -carvedilol, empagliflozin, atorvastatin -Strict intake and output, daily weights, maintain fluid restriction -Amiodarone BID -Apixaban 2.5 mg given advanced age -[id number] Score 7 points. HAS-BLED Score 2 points -discontinue Plavix and aspirin -Monitor ECG changes and notify MRSA positive -Mupirocin topical b.i.d. started EVELIO due to VMN -Monitoring labs Hypothyroidism -Levothyroxine GI prophylaxis: Not indicated DVT prophylaxis: Eliquis Diet: Cardiac Social service consult to resume hospice Case discussed with Dr. Coffey , patient and RN Plan discussed with: Patient, Other (RN) Addendum Addendum Addendum I was physically present for the patterson portions of the service provided to patient by THE RESIDENT. I have reviewed the documentation, discussed the case with resident and agree with the resident's documentation except as noted. Also the patient's clinical case was discussed with the patient's nurse. This medical document was created using an electronic medical record system with computerized dictation system. Although this document has been carefully reviewed, there might still be some phonetic and typographical errors. These areas are purely typographical due to imperfections of the software programs, and do not reflect any compromise in the patient's medical care. Late signature. Date of Service: Sep 20, 2024 Billing Provider: GORDON COFFEY MD Common Visit Codes: 51499-[id number] INP/OBS CARE(HIGH) JOSE EDUARDO TAN RESIDENT Sep 20, 2024 14:17 RILEY KAUR RESIDENT Sep 20, 2024 15:27 GORDON COFFEY MD Sep 21, 2024 14:09
--- NOTE | 2024-09-20 23:58 | DVHPN2 ---
Progress Note - Dictate Date Seen: Sep 20, 2024 Medical Necessity Reason Pt with a Central, PICC or Fol: No Subjective Patient was seen and evaluated in follow up. Patient reports improvement in her chest pain and shortness of breath. BUN 36, GLOBAL REGULATORY AFFAIRS MANAGER 1.22. Telemetry reviewed. vital signs Vital Sign Date Time Temp Pulse Resp B/P (MAP) Pulse Ox O2 Delivery O2 Flow Rate FiO2 09/20/24 18:42 93 Room Air* 0 21 09/20/24 18:31 151/66 09/20/24 17:12 97.6 66 15 97.6 Total Intake and Output 09/19/24 09/19/24 09/20/24 15:00 23:00 07:00 Intake Total 750 ml 700 ml Output Total 1000 ml 900 ml Balance -250 ml -200 ml medications Current Medications Medications Dose Ordered Sig/Shanna Route Start Time Stop Time Status Last Admin Dose Admin Carvedilol 12.5 mg Q12HR PO 09/18/24 22:00 09/20/24 09:08 12.5 MG Empaglifozin 10 mg DAILY PO 09/19/24 10:00 09/20/24 09:07 10 MG Levothyroxine Sodium 100 mcg QAM@0600 PO 09/19/24 06:00 09/20/24 05:33 100 MCG Atorvastatin Calcium 40 mg HS PO 09/18/24 22:00 09/19/24 21:38 40 MG Ondansetron HCl 4 mg Q4HP PRN IV 09/18/24 14:45 09/20/24 13:42 4 MG Acetaminophen 650 mg Q6HP PRN PO 09/18/24 14:45 09/18/24 21:46 650 MG Nitroglycerin 0.4 mg Q5MINP PRN SL 09/18/24 14:45 Morphine Sulfate 2 mg Q30M PRN IV 09/18/24 14:45 Albuterol 2.5 mg Q6HPRN PRN NEB 09/18/24 14:45 UNV Albuterol 2.5 mg Q6HPRN PRN NEB 09/18/24 15:00 09/19/24 22:09 2.5 MG Apixaban 2.5 mg BID PO 09/18/24 22:00 09/20/24 09:07 2.5 MG Furosemide 20 mg BIDD IV 09/19/24 18:00 09/20/24 18:31 20 MG Amiodarone HCl 200 mg Q12HR PO 09/19/24 22:00 09/20/24 09:07 200 MG Mupirocin 1 applic BID TOP 09/19/24 22:00 09/20/24 09:08 1 APPLIC objective GENERAL: Alert and oriented x 3. No acute distress. EYES: PERRL, EOMI. Anicteric. HENT: Moist mucous membranes. LUNGS: Decreased breath sounds. CARDIOVASCULAR: Irregular rate and rhythm. ABDOMEN: Soft, nontender and nondistended. EXTREMITIES: No edema. NEUROLOGIC: No focal neurological deficits. SKIN: Warm, dry. laboratory and microbiology Laboratory Tests 09/20/24 05:09 Test 09/20/24 05:09 Range/Units Serum Glucose 91 74-106 mg/dL Problem List Acute on chronic decompensated HFmrEF, NYHA class III. Paroxysmal atrial fibrillation, now NSR. Aortic valve stenosis, severe degree. Aortic valve regurgitation, severe degree. Mitral annular calcification, severe degree. Hypertension. Dyslipidemia. Acute hypoxic respiratory failure. Hypothyroidism. History of CVA (on Plavix and ASA). Hospice care status prior to admission. Assessment/Plan Continued all current supportive medical care. Amiodarone. Diuretics with Lasix. Eliquis. Coreg. Nitro SL. Morphine for pain management. Additional plan as per the hospital course. Dietary Evaluation Review Comments: 1) Refer Bilingual School Psychologist for weight management 2) Continue current POC Expected Outcomes/Goals: To meet >75% estimated needs Fu 3-5 days Plan discussed with: Patient DEIRDRE JOHNSON MD Sep 20, 2024 20:00
[2024-09-21] VITALS (9 sets, daily range): BP systolic 123–162; BP diastolic 48–66; PULSE 58–68; RESP 16–18; TEMP 36.7; O2SAT 93–100
[2024-09-21 06:33] LABS: Hematocrit 31.9 % (36.0-46.0); Hemoglobin 10.1 g/dL (12.2-16.2); Mean Corpuscular Hemoglobin 22.2 pg (28.0-32.0); Mean Corpuscular Volume 70.0 fL (80.0-100.0); Nucleated Red Blood Cells % 0.1 %
[2024-09-21 06:48] LABS: Anion Gap 8 (5-15); Carbon Dioxide 26 mmol/L (20-31); Chloride 105 mmol/L (98-107); Potassium 4.1 mmol/L (3.5-5.1); Sodium 139 mmol/L (136-145)
[2024-09-21 06:49] LABS: Calcium 9.3 mg/dL (8.7-10.4)
[2024-09-21 06:54] LABS: BUN/Creatinine Ratio 33.3 (10.0-20.0); Glucose 89 mg/dL (74-106)
[2024-09-21 06:55] LABS: Blood Urea Nitrogen 37 mg/dL (9-23)
[2024-09-21] MEDS ORDERED: AMIO200T13 PO (14:17)
[2024-09-21] MEDS ORDERED: MUPI2OIN2 TOP (14:17)
[2024-09-21] MEDS ORDERED: ATOR20TA50 PO (14:17)
[2024-09-21] MEDS ORDERED: APIX2.5T PO (14:17)
--- NOTE | 2024-09-21 14:42 | DVHDSRES ---
Discharge Summary Date of Admission Resident Creating Document: JOSE EDUARDO TAN Sep 18, 2024 at 14:41 Date of Discharge: Sep 21, 2024 Admitting Diagnosis Shortness of breath and paroxysmal nocturnal dyspnea associated with chest pain Labs/Diagnostic Data: Laboratory Results Test 09/21/24 04:31 09/20/24 05:09 09/19/24 13:00 09/19/24 09:34 White Blood Count 5.0 10^3/uL (4.4-10.8) Red Blood Count 4.56 10^6/uL (4.0-5.20) Hemoglobin 10.1 g/dL (12.2-16.2) Hematocrit 31.9 % (36.0-46.0) Mean Corpuscular Volume 70.0 fL (80.0-100.0) Mean Corpuscular Hemoglobin 22.2 pg (28.0-32.0) Mean Corpuscular Hemoglobin Concent 31.7 g/dL (32.0-36.0) Red Cell Distribution Width 19.7 % (11.8-14.3) Platelet Count 202 10^3/uL (140-450) Mean Platelet Volume 8.9 fL (6.9-10.8) Neutrophils (%) (Auto) 73.9 % (37.0-80.0) Lymphocytes (%) (Auto) 18.0 % (10.0-50.0) Monocytes (%) (Auto) 7.3 % (0.0-12.0) Eosinophils (%) (Auto) 0.5 % (0.0-7.0) Basophils (%) (Auto) 0.3 % (0.0-2.0) Neutrophils # (Auto) 3.7 10 ^3/uL (1.6-8.6) Lymphocytes # (Auto) 0.9 10 ^3/uL (0.4-5.4) Monocytes # (Auto) 0.4 10 ^3/uL (0-1.3) Eosinophils # (Auto) 0 10 ^3/uL (0-0.8) Basophils # (Auto) 0 10 ^3/uL (0-0.2) Nucleated Red Blood Cells 0.1 % Sodium Level 139 mmol/L (136-145) Potassium Level 4.1 mmol/L (3.5-5.1) Chloride Level 105 mmol/L (98-107) Carbon Dioxide Level 26 mmol/L (20-31) Anion Gap 8 (5-15) Blood Urea Nitrogen 37 mg/dL (9-23) Creatinine 1.11 mg/dL (0.550-1.02) Glomerular Filtration Rate Calc 48 mL/min (>90) BUN/Creatinine Ratio 33.3 (10.0-20.0) Serum Glucose 89 mg/dL (74-106) Calcium Level 9.3 mg/dL (8.7-10.4) B-Type Natriuretic Peptide 791.25 pg/mL (0-100) Magnesium Level 2.2 mg/dL (1.6-2.6) Total Bilirubin 0.3 mg/dL (0.2-1.0) Direct Bilirubin 0.1 mg/dL (<0.3) Aspartate Amino Transferase (AST) 18 U/L (13-40) Alanine Aminotransferase (ALT) 10 U/L (7-40) Alkaline Phosphatase 56 U/L (46-116) Total Protein 6.4 g/dL (5.7-8.2) Albumin 3.9 g/dL (3.2-4.8) Test 09/18/24 09:21 09/18/24 06:22 Troponin I High Sensitivity 14 ng/L (</=34) Thyroid Stimulating Hormone (TSH) 3.20 uIU/mL (0.55-4.78) Other Laboratory Tests 09/21/24 04:31 Brief Hx & Hospital Course: An 89 year Old female presents to the ED with history of chest pain, rating 8/10, tightness, radiates to neck. The patient complains of shortness of breath and PND associated with chest pain described as substernal, pressure-like, and nonradiating. She was medicated with NTG SL and ASA EN route to the hospital with some relief of symptoms. The patient had a recent admission to this facility stating she was sent home on hospice care. During previous admission she was advised to follow up as an outpatient setting for possible aortic valve replacement but given hospice status the patient failed to do so. She also reports having shortness of breath which is brought on by lying down, sitting up interested shortness of breath. She denies any fever, abdominal pain, nausea, vomiting, swelling or any other complaints at this time. Past Medical History: Dyslipidemia, hypertension, thyroid, CVA, CHF. pleural fluid aspiration history 1 month ago at [facility]. Past Surgical History: Left-sided thoracentesis, Partial colectomy with colostomy in 2020 with reversal in 2022 , , Appendectomy Tonsillectomy Family History: Patient reports no known family medical history. Social History: Patient has a five pack-year history, quit smoking approximately 35 years ago. Denies any illicit drug use.Denies any alcohol use. Allergies: No known allergies Brief history of hospitalization: Patient had systolic heart failure with mildly reduced ejection fraction, LVH and hypertension. A transthoracic echocardiogram revealed left ventricular ejection fraction to be 40-45%. 20 mg furosemide was given. GDM T4 reduced ejection fraction and carvedilol, empagliflozin, atorvastatin was continued. Strict intake and output was monitored, daily weight was also monitored and maintained fluid restriction. Patient was given amiodarone b.i.d., apixaban 2.5 mg given and patient's [id number] Score was 7 points. HAS-BLED Score 2 points. we discontinued Plavix and aspirin and monitored or ECG changes. For her MRSA positive we started her on mupirocin topical b.i.d. and for her EVELIO due to VMN we monitored her labs. For patient's hypothyroidism she was continued on her home medication of levothyroxine. Patient is now stable for discharge at home hospice. She has been counseled to meet her primary care physician within 2 weeks and communicated understanding. she has been counselled to continue home medication as well. Physical examination on the day of discharge: General Appearance: Alert, Oriented to time, place and person, Cooperative, Not in acute distress HEENT: Atraumatic, Mucous membranes moist/pink Respiratory: Crackles over the left upper lung, Normal air movement, No added sounds Cardiovascular: irregular rate, Normal S1, Normal S2, No murmurs Abdominal: Active bowel sounds, Soft, no distention, no tenderness Extremities: No edema, Normal pulses, No tenderness/swelling Skin: presence of pearly papule with rolled borders and central ulceration on the right side of the nose. 2 cm Nodule on the upper back which is blackish in color Neuro: Normal speech, sensorimotor deficits none Psych/Mental Status: Mental status NL, Mood NL Discussed with Dr. Coffey Consults/Reason for consult Cardiology for chest pain Operations or Procedures CHEST XRAY IMPRESSION: 1. Cardiomegaly and prominence of the pulmonary vasculature suggesting pulmonary vascular congestion in the appropriate clinical setting. 2. Small left pleural effusion with overlying atelectasis. Condition at Discharge: Stable Final Diagnosis/Problems List Acute on chronic Systolic CHF with mildly reduced ejection fraction, NYHA class III Acute on chronic hypoxic respiratory failure Paroxysmal atrial fibrillation, now NSR with secondary hypercoaguable state Severe and AR LVH Hypertension MRSA positive EVELIO due to VMN Hypothyroidism Discharge Disposition: Hospice - Home Discharge Instruct/Medications Diet: Regular Activity: No Restrictions, As Tolerated Follow Up/Referral: As per home hospice Medications: continue taking levothyroxine, carvediol, empaglifozin, amiodarone, apixaban, atorvastatin continue taking mupirocin ointment for 5 days Scheduled Amiodarone HCl (Amiodarone HCl), 200 MG PO Q12HR Amlodipine Besylate (Amlodipine Besylate), 10 MG PO DAILY, (Reported) Apixaban Base (Eliquis), 2.5 MG PO BID Aspirin (Aspirin Low Dose), 81 MG PO DAILY Atorvastatin Calcium (Atorvastatin Calcium), 40 MG PO HS Carvedilol (Carvedilol), 12.5 MG PO Q12HR, (Reported) Carvedilol (Carvedilol), 12.5 MG PO BID, (Reported) Cefdinir (Cefdinir), 1 CAP PO BID Clopidogrel Bisulfate (Plavix), 1 TAB PO DAILY, (Reported) Empagliflozin (Jardiance), 10 MG PO DAILY Furosemide (Lasix), 40 MG PO DAILY Levothyroxine Sodium (Levothyroxine Sodium), 100 MCG PO QAM, (Reported) Lorazepam (Lorazepam), 1 TAB PO TID, (Reported) Lovastatin (Lovastatin), 1 TAB PO DAILY, (Reported) Mupirocin (Pseudomonas Fluores (Mupirocin), 1 APPLIC TOP BID Potassium Chloride (Klor-Con M10), 1 TAB PO DAILY Miscellaneous Medications Ropinirole Hydrochloride (Ropinirole Hcl), 1 MG PO, (Reported) Discharge Statement: "Patient was advised to return to the ER or call 911 if any headaches, dizziness, shortness of breath, chest pain, abdominal pain, bleeding, fevers, or worsening of medical condition. Patient was counseled about treatment plan, medications, possible side effects, patientverbalized understanding. All questions were answered to the best of my ability. This discharge took greater then 30 minutes in planning, reviewing documentation, counseling the patient, and discussing with other team members." ASSESSMENT ASSESSMENT Assessment Systolic heart failure with mildly reduced ejection fraction LVH Hypotension MRSA positive EVELIO due to be [place] Hypothyroidism Addendum Addendum Addendum I was physically present for the patterson portions of the service provided to patient by THE RESIDENT. I have reviewed the documentation, discussed the case with resident and agree with the resident's documentation except as noted. Also the patient's clinical case was discussed with the patient's nurse. This medical document was created using an electronic medical record system with computerized dictation system. Although this document has been carefully reviewed, there might still be some phonetic and typographical errors. These areas are purely typographical due to imperfections of the software programs, and do not reflect any compromise in the patient's medical care. Late signature. Date of Service: Sep 21, 2024 Billing Provider: GORDON COFFEY MD Common Visit Codes: 13279-PUV/OBS DISCH DAY >30min SARAN DALEY RESIDENT Sep 21, 2024 14:42 GORDON COFFEY MD Sep 22, 2024 09:41
--- NOTE | 2024-09-21 22:32 | DVHPN2 ---
Progress Note - Dictate Date Seen: Sep 21, 2024 Medical Necessity Reason Pt with a Central, PICC or Fol: No Subjective Patient was seen and evaluated in follow up. Patient has no new complaints at this time. Patient denies any cardiac symptoms. Patient is cardiac stable for discharge. Telemetry reviewed. vital signs Vital Sign Date Time Temp Pulse Resp B/P (MAP) Pulse Ox O2 Delivery O2 Flow Rate FiO2 09/21/24 10:05 93 Nasal Cannula* 3 32 09/21/24 09:07 61 123/48 09/21/24 09:00 98.1 17 98.1 Total Intake and Output 09/20/24 09/20/24 09/21/24 15:00 23:00 07:00 Intake Total 480 ml 300 ml Output Total 600 ml 600 ml Balance -120 ml -300 ml medications Current Medications Medications Dose Ordered Sig/Shanna Route Start Time Stop Time Status Last Admin Dose Admin Carvedilol 12.5 mg Q12HR PO 09/18/24 22:00 09/21/24 08:00 12.5 MG Empaglifozin 10 mg DAILY PO 09/19/24 10:00 09/21/24 08:01 10 MG Levothyroxine Sodium 100 mcg QAM@0600 PO 09/19/24 06:00 09/21/24 05:12 100 MCG Atorvastatin Calcium 40 mg HS PO 09/18/24 22:00 09/20/24 21:39 40 MG Ondansetron HCl 4 mg Q4HP PRN IV 09/18/24 14:45 09/21/24 10:35 4 MG Acetaminophen 650 mg Q6HP PRN PO 09/18/24 14:45 09/18/24 21:46 650 MG Nitroglycerin 0.4 mg Q5MINP PRN SL 09/18/24 14:45 Morphine Sulfate 2 mg Q30M PRN IV 09/18/24 14:45 Albuterol 2.5 mg Q6HPRN PRN NEB 09/18/24 14:45 UNV Albuterol 2.5 mg Q6HPRN PRN NEB 09/18/24 15:00 09/19/24 22:09 2.5 MG Apixaban 2.5 mg BID PO 09/18/24 22:00 09/21/24 08:00 2.5 MG Furosemide 20 mg BIDD IV 09/19/24 18:00 7/20/25 05:12 20 MG Amiodarone HCl 200 mg Q12HR PO 09/19/24 22:00 09/21/24 08:00 200 MG Mupirocin 1 applic BID TOP 09/19/24 22:00 09/21/24 09:07 1 APPLIC objective GENERAL: Alert and oriented x 3. No acute distress. EYES: PERRL, EOMI. Anicteric. HENT: Moist mucous membranes. LUNGS: Decreased breath sounds. CARDIOVASCULAR: Irregular rate and rhythm. ABDOMEN: Soft, nontender and nondistended. EXTREMITIES: No edema. NEUROLOGIC: No focal neurological deficits. SKIN: Warm, dry. laboratory and microbiology Laboratory Tests 09/21/24 04:31 Test 09/21/24 04:31 Range/Units Serum Glucose 89 74-106 mg/dL Problem List Acute on chronic decompensated HFmrEF, NYHA class III. Paroxysmal atrial fibrillation, now NSR. Aortic valve stenosis, severe degree. Aortic valve regurgitation, severe degree. Mitral annular calcification, severe degree. Hypertension. Dyslipidemia. Acute hypoxic respiratory failure. Hypothyroidism. History of CVA (on Plavix and ASA). Hospice care status prior to admission. Assessment/Plan Continued all current supportive medical care. Amiodarone. Diuretics with Lasix. Eliquis. Coreg. Nitro SL. Morphine for pain management. Additional plan as per the hospital course. Dietary Evaluation Review Comments: 1) Refer Communications Officer for weight management 2) Continue current POC Expected Outcomes/Goals: To meet >75% estimated needs Fu 3-5 days Plan discussed with: Patient DEIRDRE JOHNSON MD Sep 21, 2024 14:22
== END 2024-09-21 17:07 | disposition hospice, home (50) | DRG 682 ==
LOC: EDBD 05:50 → ER 05:50 → OVERFLOW 14:41 → TELE-WESTW 15:57
PROVIDERS: ADMIT Internal Medicine; ATTEND Internal Medicine
DX: N17.0 Acute kidney failure with tubular necrosis (principal); I50.23 Acute on chronic systolic (congestive) heart failure; J96.21 Acute and chronic respiratory failure with hypoxia; I11.0 Hypertensive heart disease with heart failure; I35.0 Nonrheumatic aortic (valve) stenosis; Z51.5 Encounter for palliative care; I35.1 Nonrheumatic aortic (valve) insufficiency; I48.0 Paroxysmal atrial fibrillation; E78.5 Hyperlipidemia, unspecified; I34.81 Nonrheumatic mitral (valve) annulus calcification; E03.9 Hypothyroidism, unspecified; Z79.2 Long term (current) use of antibiotics; Z79.82 Long term (current) use of aspirin; Z79.899 Other long term (current) drug therapy; Z86.73 Personal history of transient ischemic attack (TIA), and cerebral infarction without residual deficits; Z93.3 Colostomy status; Z90.49 Acquired absence of other specified parts of digestive tract
CPT/HCPCS: 36415; 71045; 80048; 80076; 83735; 83880; 84443; 84484; 85025; 87081; 93005; 94640; 96374; 96375; G0378; J2405